=== PATIENT | male | born 1945 | race African-American/Black ===

== ENCOUNTER → 2016-08-15 | Outpatient (CLI) | payer MEDICAID, OTHER ==
[~2016-08-15] MED LIST: BARIUM SULFATE 40% (APPLE) 148 GM PWD. PO ONE
--- NOTE | 2016-08-15 14:39 | RAD ---
Video dysphasia study, 08/15/2016: History: Dysphagia, probable aspiration The swallowing mechanism was examined fluoroscopically in the lateral projection while the patient ingested a variety of food materials mixed with barium. 1.7 minutes of fluoroscopy time was utilized. One fluoroscopic video loop was recorded by a member of the speech Department. When ingesting the honey thickened material there was minimal deep laryngeal penetration. This material eventually traveled into the trachea. When the patient ingested the thicker pureed material, the laryngeal penetration resolved. No further aspiration was observed. IMPRESSION: Minimal deep laryngeal penetration and aspiration of the honey thickened material which abated when the pureed material was utilized.
== END | disposition home or self-care (01) ==
LOC: RAD 13:04
PROVIDERS: ATTEND Family Medicine
DX: I69.959 Hemiplegia and hemiparesis following unspecified cerebrovascular disease affecting unspecified side (principal); I73.9 Peripheral vascular disease, unspecified; I10 Essential (primary) hypertension; K21.9 Gastro-esophageal reflux disease without esophagitis; I69.998 Other sequelae following unspecified cerebrovascular disease
CPT/HCPCS: 74230; 92611; G8996; G8997; G8998

== ENCOUNTER 2019-12-07 13:25 | Inpatient (IN) | payer MEDICARE, MEDICAID ==
[~2019-12-07] VITALS: Ht 180.3 cm; Wt 65.1 kg
[~2019-12-07 13:25] MED LIST changes: +ACET325T21 PO; +AMLO10TA4 PO; +ASPI-630 PO; -BARIUM SULFATE 40% (APPLE) 148 GM PWD. PO ONE; +CHOL10003 PO; +DOCU100C28 PO; +HYDR12.575 PO; +METO25TA4 PO; +SENN8.6T99 PO
[2019-12-07 14:03] LABS: BASO % 1 % (0-3); EOS % 0 % (0-3); HEMATOCRIT 46.7 % (39.0-53.0); HEMOGLOBIN 15.6 g/dL (13.0-17.5); LYMPH # 1.3 x10^3/uL (1.0-4.8); LYMPH % 21 % (24-48); MEAN CORPUSCULAR HEMOGLOBIN 30 pg (25-35); MEAN CORPUSCULAR HGB CONC 33 g/dL (31-37); MEAN CORPUSCULAR VOLUME 89 fL (79-100); MONO # 0.6 x10^3/uL (0.0-1.1); MONO % 10 % (0-9); NEUT # 4.3 x10^3/uL (1.8-7.7); NEUT % 69 % (31-73); PLATELET COUNT 156 x10^3/uL (140-400); RED BLOOD COUNT 5.22 x10^6/uL (4.30-5.70); RED CELL DISTRIBUTION WIDTH 12.9 % (11.5-14.5); WHITE BLOOD COUNT 6.3 x10^3/uL (4.0-11.0)
--- NOTE | 2019-12-07 14:23 | RAD ---
AP chest. HISTORY: Code stroke, slurred speech, facial droop AP views taken of the chest. Lungs are free of infiltrates. Heart is normal in size. There is no pleural effusion. IMPRESSION: 1. No acute chest disease. Electronically signed by: Armando Ceja MD (12/07/2019 2:20 PM) [id number]
--- NOTE | 2019-12-07 14:34 | RAD ---
CT HEAD WO CONTRAST History:Slurred speech, facial droop Comparison: None. Technique: Noncontrast CT imaging was performed of the head. Exposure: One or more of the following individualized dose reduction techniques were utilized for this examination: 1. Automated exposure control 2. Adjustment of the mA and/or kV according to patient size 3. Use of iterative reconstruction technique. Findings: There is motion degradation, more prominent near the vertex. No convincing acute hyperdense hemorrhage is identified. It is difficult to exclude left frontal region subdural hematoma near the vertex on the exam measuring 6 to 7 mm in thickness although findings could be accentuated by motion. There is moderate to severe lateral and moderate third ventriculomegaly although there is degree of supratentorial atrophy. There are old lacunar infarcts of the bilateral basal ganglia and watkins radiata. There is no midline shift. There is atherosclerotic calcification of the carotid siphons and intradural vertebral arteries. There is small focus of lower density of the right radha. Impression: 1. Exam is degraded by motion. Small left frontal region subdural hematoma near the vertex is difficult to exclude although findings could be accentuated by motion. If clinically needed, repeat exam with attention to this area could be beneficial. 2. There is third and lateral ventriculomegaly although there is supratentorial atrophy. 3. There are old lacunar infarcts. There is a small focus of low density of the right radha suggestive of lacunar infarct although of uncertain chronicity, could be subacute. Critical results were discussed with GABRIEL NEWELL at 12/07/2019 2:28 PM. Electronically signed by: Ta Sigala MD (12/07/2019 2:31 PM) [place] [id number]
[2019-12-07 15:52] LABS: CALCIUM 8.9 mg/dL (8.5-10.1); CREATININE 1.1 mg/dL (0.7-1.3); POTASSIUM 3.6 mmol/L (3.5-5.1)
[2019-12-07 16:03] LABS: ALBUMIN 3.2 g/dL (3.4-5.0); ALBUMIN/GLOBULIN RATIO 0.8 (1.0-1.7); TOTAL BILIRUBIN 0.7 mg/dL (0.2-1.0); TOTAL PROTEIN 7.4 g/dL (6.4-8.2)
[2019-12-07] MEDS ORDERED: IV NORMAL SALINE 1000ML BAG 1,000 ML IV ONE (16:30)
[2019-12-07] MEDS ORDERED: ACETAMINOPHEN 325 MG TABLET. PO PRN (17:45)
[2019-12-07] MEDS ORDERED: hydrALAZINE 20 MG/ML VIAL. IVP PRN (17:45)
--- NOTE | 2019-12-07 17:48 | PHYS DOC ---
Past Medical History Past Medical History: GERD, Hypertension, Stroke Additional Past Medical Histor: candidal stomatitis, dysphagia, muscle wea kness, lack of coordiantion Past Surgical History: No Surgical History Smoking Status: Unknown if ever smoked Alcohol Use: None Drug Use: None General Adult EDM: Chief Complaint: NEURO SYMPTOMS/DEFICITS HPI: HPI: Patient is a 74 year old male who presents with possible new onset facial droop. According to the nursing facility they last saw him normal yesterday. At baseline he is nonverbal and has some chronic deficits. They are stating that this facial droop is new. Patient is unable to provide any history. Review of Systems: Review of Systems: Unable to obtain due to altered mental status Heart Score: Risk Factors: Risk Factors: DM, Current or recent (<one month) smoker, HTN, HLP, family history of CAD, obesity. Risk Scores: Score 0 - 3: 2.5% MACE over next 6 weeks - Discharge Home Score 4 - 6: 20.3% MACE over next 6 weeks - Admit for Clinical Observation Score 7 - 10: 72.7% MACE over next 6 weeks - Early Invasive Strategies Current Medications: Current Medications Medications (Trade) Dose Ordered Sig/Aung Start Time Stop Time Status Last Admin Dose Admin Sodium Chloride 1,000 ml @ 1,000 mls/hr 1X ONCE 12/07/19 16:30 12/07/19 17:29 DC Allergies: Allergies: Allergies Coded Allergies Type Severity Reaction Last Updated Verified No Known Drug Allergies 01/06/14 No Physical Exam: PE: General: Awake, cachectic. Cooperative HEENT: Atraumatic, EOMI, PERRL, airway patent, moist oral mucosa Neck: Supple, trachea midline Respiratory: CTA bilaterally, normal effort, no wheezing/crackles CV: RRR, no murmur, cap refill <2 GI: Soft, nondistended, nontender, no masses MSK: No obvious deformities Skin: Warm, dry, intact Neuro: Nonverbal, moves all extremities, right-sided facial droop Current Patient Data: Labs: Laboratory Tests Test 12/07/19 13:45 12/07/19 15:00 White Blood Count 6.3 x10^3/uL (4.0-11.0) Red Blood Count 5.22 x10^6/uL (4.30-5.70) Hemoglobin 15.6 g/dL (13.0-17.5) Hematocrit 46.7 % (39.0-53.0) Mean Corpuscular Volume 89 fL (79-100) Mean Corpuscular Hemoglobin 30 pg (25-35) Mean Corpuscular Hemoglobin Concent 33 g/dL (31-37) Red Cell Distribution Width 12.9 % (11.5-14.5) Platelet Count 156 x10^3/uL (140-400) Neutrophils (%) (Auto) 69 % (31-73) Lymphocytes (%) (Auto) 21 % (24-48) L Monocytes (%) (Auto) 10 % (0-9) H Eosinophils (%) (Auto) 0 % (0-3) Basophils (%) (Auto) 1 % (0-3) Neutrophils # (Auto) 4.3 x10^3/uL (1.8-7.7) Lymphocytes # (Auto) 1.3 x10^3/uL (1.0-4.8) Monocytes # (Auto) 0.6 x10^3/uL (0.0-1.1) Eosinophils # (Auto) 0.0 x10^3/uL (0.0-0.7) Basophils # (Auto) 0.0 x10^3/uL (0.0-0.2) Sodium Level 150 mmol/L (136-145) H Potassium Level 3.6 mmol/L (3.5-5.1) Chloride Level 110 mmol/L (98-107) H Carbon Dioxide Level 30 mmol/L (21-32) Anion Gap 10 (6-14) Blood Urea Nitrogen 36 mg/dL (8-26) H Creatinine 1.1 mg/dL (0.7-1.3) Estimated GFR (Cockcroft-Gault) 79.0 BUN/Creatinine Ratio 33 (6-20) H Glucose Level 108 mg/dL (70-99) H Calcium Level 8.9 mg/dL (8.5-10.1) Total Bilirubin 0.7 mg/dL (0.2-1.0) Aspartate Amino Transferase (AST) 120 U/L (15-37) H Alanine Aminotransferase (ALT) 81 U/L (16-63) H Alkaline Phosphatase 69 U/L (46-116) Troponin I Quantitative 0.019 ng/mL (0.000-0.055) Total Protein 7.4 g/dL (6.4-8.2) Albumin 3.2 g/dL (3.4-5.0) L Albumin/Globulin Ratio 0.8 (1.0-1.7) L Laboratory Tests 12/07/19 13:45 Laboratory Tests 12/07/19 15:00 Vital Signs: Vital Signs Date Time Temp Pulse Resp B/P (MAP) Pulse Ox O2 Delivery O2 Flow Rate FiO2 12/07/19 13:25 99.1 112 20 156/83 (107) 94 Room Air 99.1 EKG: EKG: [] Radiology/Procedures: Radiology/Procedures: [] Course & Med Decision Making: Course & Med Decision Making Pertinent Labs and Imaging studies reviewed. (See chart for details) Patient 74-year-old male who presents to the emergency room with possible new onset facial droop. Last known well time was last night and patient is outside of the window for any intervention at this time. Patient also has known coronavirus. CT head shows possible chronic versus subacute radha infarct. It is otherwise normal. Work-up shows dehydration and hypernatremia. Patient was given fluids here in the emergency room. I discussed the case with Dr. Bee who will admit the patient for further care. Dragon Disclaimer: Dragon Disclaimer: This electronic medical record was generated, in whole or in part, using a voice recognition dictation system. Departure Departure Impression: Primary Impression: Facial droop Additional Impressions: Dehydration Hypernatremia Disposition: ADMITTED INPATIENT Condition: STABLE Referrals: NON,STAFF (PCP) Justicifation of Admission Dx: Justifications for Admission: Justification of Admission Dx: Yes Stroke - Ischemic: Stroke-Ischemic GABRIEL NEWELL MD Dec 07, 2019 17:48
--- NOTE | 2019-12-07 18:15 | PDOC ---
Provider Note Provider Note H&P dictated #[id number] Justicifation of Admission Dx: Justifications for Admission: Justification of Admission Dx: Yes Stroke - Ischemic: Stroke-Ischemic JEROME SHELL MD Dec 07, 2019 18:15
--- NOTE | 2019-12-07 18:50 | HP ---
ADMIT DATE: 12/07/2019 HISTORY OF PRESENT ILLNESS: This 74 years old alf resident was noted by the staff today to have an increasing facial droop. The patient previously has had a cerebrovascular accident with right-sided weakness. The patient also vomited today and has been coughing. He had a COVID-19 test done this morning. Because of his worsening facial droop, the patient was sent to the Emergency Room. A chest x-ray was negative. The patient has been coughing. A CT scan of head showed old lacunar infarcts and possible subacute infarct in the right side radha. Because of the dysphagia, worsening facial droop, coughing, and with the possibility of acute cerebrovascular accident, the patient is admitted for further evaluation and management. REVIEW OF SYSTEMS: The patient's speech is not clear and he is unable to communicate. The patient's speech is worse than what it used to be previously. Unable to understand him and unable to do systems review. PAST MEDICAL HISTORY: The patient has a history of cerebrovascular accident, hypertension, gastroesophageal reflux disease, dysphagia, weakness and oral candidiasis. SOCIAL HISTORY: No history of smoking, alcoholism or drug abuse. The patient is a resident of [facility]. PAST SURGICAL HISTORY: The patient was last admitted here in 04/2018 and he had obstructed right inguinal hernia and he underwent right inguinal hernia repair with mesh placement. FAMILY HISTORY: Not available. MEDICATIONS: Reviewed and reconciled. ALLERGIES: None known any. PHYSICAL EXAMINATION: VITAL SIGNS: Temperature 99.1, pulse 112 per minute, respirations 20 per minute, blood pressure 156/83 mmHg. GENERAL: The patient is an elderly male who is alert, appears to be chronically and acutely ill and in mild distress. He is unable to communicate and has been coughing while trying to talk. EYES: Pupils reacting to light. Eyes appear to be red bilaterally, more on the left side. Throat, unable to examine as the patient is coughing and is also wearing a mask. NECK: JVP normal. No thyromegaly. Trachea midline. LUNGS: Decreased breath sounds bilaterally. CARDIOVASCULAR: S1, S2 regular. ABDOMEN: Soft, nontender, no guarding, no rigidity. Bowel sounds present. EXTREMITIES: No edema. The patient has right-sided weakness with contracture. He also has a facial droop on the right side, but I am not sure if it is more pronounced than before as I have not seen him for some time. CENTRAL NERVOUS SYSTEM: His speech is not clear and I am unable to communicate. His speech is worse than it used to be previously. LABORATORY FINDINGS: WBC count 6.3, hemoglobin 15.6, polys 69. Sodium 150, potassium 3.6, BUN 36, creatinine 1.1, AST 120, ALT 81, albumin 3.2. Troponin 0.019. IMPRESSION: 1. Acute cerebrovascular accident. 2. Hypertension, not controlled. 3. Dysphagia. 4. Gastroesophageal reflux disease. 5. Dehydration. 6. Elevated LFTs. 7. Electrolyte imbalance with hypernatremia and hypokalemia. 8. Physical deconditioning. 9. Low-grade fever. 10. Possible aspiration bronchitis. PLAN: 1. Start IV D5 half normal saline with KCl 20 mEq in each liter to run at 125 mL per hour. 2. Dysphagia. We will keep the patient n.p.o. and have speech therapy evaluation. 3. Acute cerebrovascular accident. Consult Dr. Hood. Consult PT, OT, speech therapy, and also consult Dr. Jade for rehabilitation evaluation and management. 4. Dehydration. Start IV fluids as noted earlier. 5. Hypertension. Start IV hydralazine. We will renew the alf medications, but will not start them yet as the patient is n.p.o. 6. Elevated LFTs. Recheck labs in a.m. Prognosis of this patient is extremely poor. Await COVID-19 test report that was done by the facility, i.e., the alf where he lives. For details, please refer to the orders. JEROME SHELL MD DR: MALATHI/merlin JOB#: [id number] / [id number]
[2019-12-07] MEDS ORDERED: ENOXAPARIN 30 MG/0.3 ML SYRINGE. SQ SCH (19:00)
[2019-12-07 19:49] VITALS: BP 155/75
--- NOTE | 2019-12-07 20:06 | NUR ---
Pt arrived to unit at 1820. NIH was done with next shift RYAN Hurd. Score was 21. Routine consult was called to Dr Hood.
[2019-12-07] MEDS: DOCUSATE SODIUM 100 MG CAPSULE. PO SCH (21:00)
[2019-12-07] MEDS: METOPROLOL TARTRATE 5 MG/5 ML VIAL. IVP PRN ×2 (21:00→22:57)
[2019-12-07] MEDS: SENNOSIDES 8.6 MG TABLET PO SCH (21:00)
--- NOTE | 2019-12-07 21:13 | EKG ---
[facility] [address] [place] [address] Test Date: 2019-12-07 Test Time: 21:06:47 Pat Name: ELAN FOFANA Department: Room: Gender: M Road Machine Operator: PARISA : 1945 Requested By: GABRIEL NEWELL Order Number: [id number] Reading MD: Measurements Intervals [place] Rate: 114 P: KS: QRS: 51 QRSD: 84 T: -21 QT: 328 QTc: 456 Interpretive Statements IRREGULAR RHYTHM, NO P-WAVE FOUND T ABNORMALITY IN INFERIOR LEADS ABNORMAL ECG RI6.02 Compared to ECG 04/30/2018 20:53:47 T-wave abnormality now present Sinus rhythm no longer present Left-axis deviation no longer present
[2019-12-07] MEDS: POTASSIUM CL 20MEQ D5-0.45NACL 1,000 ML IV SCH (22:22)
[2019-12-07] MEDS ORDERED: METOPROLOL TARTRATE 5 MG/5 ML VIAL. IVP PRN (22:45)
[2019-12-07] MEDS: ACETAMINOPHEN 650 MG SUPP.RECT. PR PRN (22:49)
[2019-12-07 23:20] VITALS: BP 139/66
[2019-12-08 03:10] VITALS: BP 114/69
[2019-12-08 03:48] LABS: BASO % 1 % (0-3); EOS % 0 % (0-3); HEMATOCRIT 43.8 % (39.0-53.0); HEMOGLOBIN 14.5 g/dL (13.0-17.5); LYMPH # 1.7 x10^3/uL (1.0-4.8); LYMPH % 26 % (24-48); MEAN CORPUSCULAR HEMOGLOBIN 30 pg (25-35); MEAN CORPUSCULAR HGB CONC 33 g/dL (31-37); MEAN CORPUSCULAR VOLUME 89 fL (79-100); MONO # 0.6 x10^3/uL (0.0-1.1); MONO % 9 % (0-9); NEUT # 4.1 x10^3/uL (1.8-7.7); NEUT % 65 % (31-73); PLATELET COUNT 156 x10^3/uL (140-400); RED BLOOD COUNT 4.92 x10^6/uL (4.30-5.70); WHITE BLOOD COUNT 6.4 x10^3/uL (4.0-11.0)
[2019-12-08 04:00] LABS: ALBUMIN 2.6 g/dL (3.4-5.0); ALBUMIN/GLOBULIN RATIO 0.6 (1.0-1.7); CALCIUM 8.5 mg/dL (8.5-10.1); CREATININE 1.1 mg/dL (0.7-1.3); MAGNESIUM 2.7 mg/dL (1.8-2.4); POTASSIUM 3.5 mmol/L (3.5-5.1); TOTAL BILIRUBIN 0.6 mg/dL (0.2-1.0); TOTAL PROTEIN 7.1 g/dL (6.4-8.2)
[2019-12-08 04:05] LABS: CHOLESTEROL/HDL RATIO 1.9
--- NOTE | 2019-12-08 04:52 | EKG ---
[facility] [address] [place] [address] Test Date: 2019-12-07 Test Time: 13:35:07 Pat Name: ELAN FOFANA Department: Room: 4 Gender: M Workers Compensation Coordinator: : 1945 Requested By: JEROME SHELL Order Number: [id number] Reading MD: Measurements Intervals [place] Rate: 85 P: 31 VA: 132 QRS: 28 QRSD: 72 T: 45 QT: 366 QTc: 436 Interpretive Statements SINUS RHYTHM LOW LIMB LEAD VOLTAGE NO SPECIFIC ECG ABNORMALITIES RI6.02 No previous ECG available for comparison
[2019-12-08 07:00] VITALS: BP 105/74
--- NOTE | 2019-12-08 08:55 | PDOC2 ---
NEUROLOGY CONSULT Date of Service DOS: DATE: 12/08/19 TIME: 08:53 Reason for Consult Reason for Consult: stroke symptoms Referring Physician Referring Physician: Dr. 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 Yesterday at [facility], he was found to have increased weakness, vomiting, coughing, and also turns out to be COVID positive. He is unable to provide any further history. Past Medical History Cardiovascular: HTN, Other (peripheral vascular disease) CENTRAL NERVOUS SYSTEM: CVA (right paresis, aphasia) GI: GERD Infectious disease: Other (COVID) Family History Family History: No pertinent hx Social History Social History detention resident, no known alcohol or tobacco Current Medications Current Medications Current Medications Sodium Chloride 1,000 ml @ 1,000 mls/hr 1X ONCE IV ; Start 12/07/19 at 16:30; Stop 12/07/19 at 17:29; Status DC Acetaminophen (Tylenol) 650 mg PRN Q4HRS PRN PO FEVER > 100.3'F; Start 12/07/19 at 17:45 Amlodipine Besylate (Norvasc) 10 mg DAILY PO ; Start 12/08/19 at 09:00 Aspirin (Aspirin Chewable) 81 mg DAILY PO ; Start 12/08/19 at 09:00 Vitamin D (Vitamin D3) 1,000 unit WEEKLY PO ; Start 12/14/19 at 09:00 Docusate Sodium (Colace) 100 mg BID PO ; Start 12/07/19 at 21:00 Sennosides (Senna) 8.6 mg BID PO ; Start 12/07/19 at 21:00 Hydralazine HCl (Apresoline Inj) 10 mg PRN Q4HRS PRN IVP FOR SBP > 160; Start 12/07/19 at 17:45 Potassium Chloride/Dextrose/ Sod Cl 1,000 ml @ 100 mls/hr Q10H IV Last administered on 12/07/19at 22:22; Start 12/07/19 at 18:30 Enoxaparin Sodium (Lovenox 30mg Syringe) 30 mg Q24H SQ Last administered on 12/07/19at 22:21; Start 12/07/19 at 19:00 Pantoprazole Sodium (PROTONIX VIAL for IV PUSH) 40 mg DAILY07 IVP ; Start 03/18 at 07:00 Metoprolol Tartrate (Lopressor Vial) 5 mg QIDPRN PRN IVP TACHYCARDIA Last administered on 12/07/19at 22:57; Start 12/07/19 at 19:45 Acetaminophen (Tylenol Supp) 650 mg PRN Q6HRS PRN DE MILD PAIN / TEMP > 100.3'F Last administered on 12/07/19at 22:49; Start 12/07/19 at 21:30 Metoprolol Tartrate (Lopressor Vial) 10 mg PRN Q6HRS PRN IVP HYPERTENSION; Start 12/07/19 at 22:45 Active Scripts Active Reported Vitamin D3 (Cholecalciferol (Vitamin D3)) 1,000 Unit Tablet 1 Tab PO WEEKLY Senokot (Sennosides) 8.6 Mg Tablet 1 Tab PO BID Norvasc (Amlodipine Besylate) 10 Mg Tablet 10 Mg PO DAILY Metoprolol Tartrate 25 Mg Tablet 0.5 Tab PO BID Hydrochlorothiazide Capsule (Hydrochlorothiazide) 12.5 Mg Capsule 12.5 Mg PO DAILY Docusate Sodium 100 Mg Capsule 1 Cap PO BID Aspirin 81 Mg Tab.chew 1 Tab PO DAILY Acetaminophen 325 Mg Tablet 650 Mg PO PRN Q4HRS PRN Allergies Allergies: Coded Allergies: No Known Drug Allergies (Unverified , 01/06/14) ROS Review of System Not reliably obtained Physical Exam Physical Examination General: Well-developed, well-nourished black male in no acute distress HEENT: Normocephalic andatraumatic. Temporal arteriespulsatile and nontender. Neck: Supple without bruit, no meningismus Musculoskeletal: Stability:see neurologic. Gait exam:see neurologic. Tone:see neurologic.Strength:see neurologic. Neurological: Mental Status: oorientation, memory, attention span/concentration, language, fund of knowledge: no intelligible speech output, does not follow commands. Cran ial Nerves:Pupils equal and reactive to light, extraocular movements areintact, visual armando are full to threat. Facial sensation is normal. There is a right central facial weakness. All other cranial related problems are negative except as mentioned before.Reflexes:2+ and symmetric with flexor plantar responses. Motor: 2/5 spastic right hemiparesis. Coordination and gait: not cooperative. Sensory: not cooperative. Vitals VITALS Vital Signs Date Time Temp Pulse Resp B/P (MAP) Pulse Ox O2 Delivery O2 Flow Rate FiO2 12/08/19 07:00 97.8 118 18 105/74 (84) 94 Nasal Cannula 2.0 97.8 Labs Labs Laboratory Tests Test 12/07/19 13:45 12/07/19 15:00 12/08/19 03:40 White Blood Count 6.3 x10^3/uL (4.0-11.0) 6.4 x10^3/uL (4.0-11.0) Red Blood Count 5.22 x10^6/uL (4.30-5.70) 4.92 x10^6/uL (4.30-5.70) Hemoglobin 15.6 g/dL (13.0-17.5) 14.5 g/dL (13.0-17.5) Hematocrit 46.7 % (39.0-53.0) 43.8 % (39.0-53.0) Mean Corpuscular Volume 89 fL (79-100) 89 fL (79-100) Mean Corpuscular Hemoglobin 30 pg (25-35) 30 pg (25-35) Mean Corpuscular Hemoglobin Concent 33 g/dL (31-37) 33 g/dL (31-37) Red Cell Distribution Width 12.9 % (11.5-14.5) 13.0 % (11.5-14.5) Platelet Count 156 x10^3/uL (140-400) 156 x10^3/uL (140-400) Neutrophils (%) (Auto) 69 % (31-73) 65 % (31-73) Lymphocytes (%) (Auto) 21 % (24-48) 26 % (24-48) Monocytes (%) (Auto) 10 % (0-9) 9 % (0-9) Eosinophils (%) (Auto) 0 % (0-3) 0 % (0-3) Basophils (%) (Auto) 1 % (0-3) 1 % (0-3) Neutrophils # (Auto) 4.3 x10^3/uL (1.8-7.7) 4.1 x10^3/uL (1.8-7.7) Lymphocytes # (Auto) 1.3 x10^3/uL (1.0-4.8) 1.7 x10^3/uL (1.0-4.8) Monocytes # (Auto) 0.6 x10^3/uL (0.0-1.1) 0.6 x10^3/uL (0.0-1.1) Eosinophils # (Auto) 0.0 x10^3/uL (0.0-0.7) 0.0 x10^3/uL (0.0-0.7) Basophils # (Auto) 0.0 x10^3/uL (0.0-0.2) 0.0 x10^3/uL (0.0-0.2) Sodium Level 150 mmol/L (136-145) 150 mmol/L (136-145) Potassium Level 3.6 mmol/L (3.5-5.1) 3.5 mmol/L (3.5-5.1) Chloride Level 110 mmol/L (98-107) 113 mmol/L (98-107) Carbon Dioxide Level 30 mmol/L (21-32) 29 mmol/L (21-32) Anion Gap 10 (6-14) 8 (6-14) Blood Urea Nitrogen 36 mg/dL (8-26) 40 mg/dL (8-26) Creatinine 1.1 mg/dL (0.7-1.3) 1.1 mg/dL (0.7-1.3) Estimated GFR (Cockcroft-Gault) 79.0 79.0 BUN/Creatinine Ratio 33 (6-20) 36 (6-20) Glucose Level 108 mg/dL (70-99) 132 mg/dL (70-99) Calcium Level 8.9 mg/dL (8.5-10.1) 8.5 mg/dL (8.5-10.1) Total Bilirubin 0.7 mg/dL (0.2-1.0) 0.6 mg/dL (0.2-1.0) Aspartate Amino Transf (AST/SGOT) 120 U/L (15-37) 94 U/L (15-37) Alanine Aminotransferase (ALT/SGPT) 81 U/L (16-63) 73 U/L (16-63) Alkaline Phosphatase 69 U/L (46-116) 59 U/L (46-116) Troponin I Quantitative 0.019 ng/mL (0.000-0.055) Total Protein 7.4 g/dL (6.4-8.2) 7.1 g/dL (6.4-8.2) Albumin 3.2 g/dL (3.4-5.0) 2.6 g/dL (3.4-5.0) Albumin/Globulin Ratio 0.8 (1.0-1.7) 0.6 (1.0-1.7) Magnesium Level 2.7 mg/dL (1.8-2.4) Triglycerides Level 49 mg/dL (0-150) Cholesterol Level 126 mg/dL (0-200) LDL Cholesterol, Calculated 50 mg/dL (0-100) VLDL Cholesterol, Calculated 10 mg/dL (0-40) Non-HDL Cholesterol Calculated 60 mg/dL (0-129) HDL Cholesterol 66 mg/dL (40-60) Cholesterol/HDL Ratio 1.9 Laboratory Tests Test 12/07/19 13:45 12/07/19 15:00 12/08/19 03:40 White Blood Count 6.3 x10^3/uL (4.0-11.0) 6.4 x10^3/uL (4.0-11.0) Red Blood Count 5.22 x10^6/uL (4.30-5.70) 4.92 x10^6/uL (4.30-5.70) Hemoglobin 15.6 g/dL (13.0-17.5) 14.5 g/dL (13.0-17.5) Hematocrit 46.7 % (39.0-53.0) 43.8 % (39.0-53.0) Mean Corpuscular Volume 89 fL (79-100) 89 fL (79-100) Mean Corpuscular Hemoglobin 30 pg (25-35) 30 pg (25-35) Mean Corpuscular Hemoglobin Concent 33 g/dL (31-37) 33 g/dL (31-37) Red Cell Distribution Width 12.9 % (11.5-14.5) 13.0 % (11.5-14.5) Platelet Count 156 x10^3/uL (140-400) 156 x10^3/uL (140-400) Neutrophils (%) (Auto) 69 % (31-73) 65 % (31-73) Lymphocytes (%) (Auto) 21 % (24-48) 26 % (24-48) Monocytes (%) (Auto) 10 % (0-9) 9 % (0-9) Eosinophils (%) (Auto) 0 % (0-3) 0 % (0-3) Basophils (%) (Auto) 1 % (0-3) 1 % (0-3) Neutrophils # (Auto) 4.3 x10^3/uL (1.8-7.7) 4.1 x10^3/uL (1.8-7.7) Lymphocytes # (Auto) 1.3 x10^3/uL (1.0-4.8) 1.7 x10^3/uL (1.0-4.8) Monocytes # (Auto) 0.6 x10^3/uL (0.0-1.1) 0.6 x10^3/uL (0.0-1.1) Eosinophils # (Auto) 0.0 x10^3/uL (0.0-0.7) 0.0 x10^3/uL (0.0-0.7) Basophils # (Auto) 0.0 x10^3/uL (0.0-0.2) 0.0 x10^3/uL (0.0-0.2) Sodium Level 150 mmol/L (136-145) 150 mmol/L (136-145) Potassium Level 3.6 mmol/L (3.5-5.1) 3.5 mmol/L (3.5-5.1) Chloride Level 110 mmol/L (98-107) 113 mmol/L (98-107) Carbon Dioxide Level 30 mmol/L (21-32) 29 mmol/L (21-32) Anion Gap 10 (6-14) 8 (6-14) Blood Urea Nitrogen 36 mg/dL (8-26) 40 mg/dL (8-26) Creatinine 1.1 mg/dL (0.7-1.3) 1.1 mg/dL (0.7-1.3) Estimated GFR (Cockcroft-Gault) 79.0 79.0 BUN/Creatinine Ratio 33 (6-20) 36 (6-20) Glucose Level 108 mg/dL (70-99) 132 mg/dL (70-99) Calcium Level 8.9 mg/dL (8.5-10.1) 8.5 mg/dL (8.5-10.1) Total Bilirubin 0.7 mg/dL (0.2-1.0) 0.6 mg/dL (0.2-1.0) Aspartate Amino Transf (AST/SGOT) 120 U/L (15-37) 94 U/L (15-37) Alanine Aminotransferase (ALT/SGPT) 81 U/L (16-63) 73 U/L (16-63) Alkaline Phosphatase 69 U/L (46-116) 59 U/L (46-116) Troponin I Quantitative 0.019 ng/mL (0.000-0.055) Total Protein 7.4 g/dL (6.4-8.2) 7.1 g/dL (6.4-8.2) Albumin 3.2 g/dL (3.4-5.0) 2.6 g/dL (3.4-5.0) Albumin/Globulin Ratio 0.8 (1.0-1.7) 0.6 (1.0-1.7) Magnesium Level 2.7 mg/dL (1.8-2.4) Triglycerides Level 49 mg/dL (0-150) Cholesterol Level 126 mg/dL (0-200) LDL Cholesterol, Calculated 50 mg/dL (0-100) VLDL Cholesterol, Calculated 10 mg/dL (0-40) Non-HDL Cholesterol Calculated 60 mg/dL (0-129) HDL Cholesterol 66 mg/dL (40-60) Cholesterol/HDL Ratio 1.[address] HEAD WO CONTRAST History:Slurred speech, facial droop Comparison: None. Technique: Noncontrast CT imaging was performed of the head. Exposure: One or more of the following individualized dose reduction techniques were utilized for this examination: 1. Automated exposure control 2. Adjustment of the mA and/or kV according to patient size 3. Use of iterative reconstruction technique. Findings: There is motion degradation, more prominent near the vertex. No convincing acute hyperdense hemorrhage is identified. It is difficult to exclude left frontal region subdural hematoma near the vertex on the exam measuring 6 to 7 mm in thickness although findings could be accentuated by motion. There is moderate to severe lateral and moderate third ventriculomegaly although there is degree of supratentorial atrophy. There are old lacunar infarcts of the bilateral basal ganglia and watkins radiata. There is no midline shift. There is atherosclerotic calcification of the carotid siphons and intradural vertebral arteries. There is small focus of lower density of the right radha. Impression: 1. Exam is degraded by motion. Small left frontal region subdural hematoma near the vertex is difficult to exclude although findings could be accentuated by motion. If clinically needed, repeat exam with attention to this area could be beneficial. 2. There is third and lateral ventriculomegaly although there is supratentorial atrophy. 3. There are old lacunar infarcts. There is a small focus of low density of the right radha suggestive of lacunar infarct although of uncertain chronicity, could be subacute. Assessment/Plan Assessment/Plan Impression: Prior left hemispheric stroke leaving him in a markedly debilitated state Possible subdural hematoma COVID positive Possible aspiration pneumonia, respiratory failure, atrial fibrillation new onset, dehydration (hypernatremia), hypokalemia, hypertension, dysphagia, elevated LFTs, low-grade fever Recommendations: Brain MRI Rehabilitation modalities including swallowing evaluation Further recommendations depending on MRI results, but I'm hesitant to order carotid studies or echocardiogram as he is not a candidate for endarterectomy or anticoagulation. Treat medical problems. Thank you for letting me help with the patient's care. AAYUSH MOREJON MD Dec 08, 2019 08:55
[2019-12-08] MEDS: DOCUSATE SODIUM 100 MG CAPSULE. PO SCH ×2 (08:58→21:00)
[2019-12-08] MEDS: ASPIRIN CHEWABLE 81 MG TABLET. PO SCH (08:58)
[2019-12-08] MEDS: SENNOSIDES 8.6 MG TABLET PO SCH ×2 (09:00→21:00)
[2019-12-08] MEDS ORDERED: amLODIPine BESYLATE 10 MG TABLET PO SCH (09:00)
[2019-12-08] MEDS: PANTOPRAZOLE IV PUSH 40 MG VIAL. IVP SCH (09:05)
[2019-12-08] MEDS: POTASSIUM CL 20MEQ D5-0.45NACL 1,000 ML IV SCH ×2 (09:06→19:14)
[2019-12-08] MEDS ORDERED: DIGOXIN IV 500 MCG/2 ML AMPUL. IV ONE (10:15)
[2019-12-08 10:37] VITALS: BP 120/84
--- NOTE | 2019-12-08 10:44 | PDOC ---
IM PROGRESS NOTES- Subjective Subjective The patient speech is not clear and unable to do systems review. Patient is much less responsive this morning than yesterday. he had atrial fibrillation with fast ventricular rate and was started on IV Lopressor. He has been given digoxin IV by the wad compressor operator adjuster Objective Vitals/I&O Vital Signs Date Time Temp Pulse Resp B/P (MAP) Pulse Ox O2 Delivery O2 Flow Rate FiO2 12/08/19 10:37 97.9 115 17 120/84 (96) 94 Nasal Cannula 2.0 97.9 I & O 12/07/19 12/07/19 12/08/19 15:00 23:00 07:00 Intake Total 0 ml 0 ml Balance 0 ml 0 ml Physical Exam Physical Exam GENERAL: The patient is an elderly male who is poorly responsive, appears to be chronically and acutely ill and in mild distress. He is unable to communicate and has been coughing while trying to talk. Throat, unable to examine as the patient is coughing NECK: JVP normal. No thyromegaly. Trachea midline. LUNGS: Decreased breath sounds bilaterally. CARDIOVASCULAR: S1, S2 regular. ABDOMEN: Soft, nontender, no guarding, no rigidity. Bowel sounds present. EXTREMITIES: No edema. The patient has right-sided weakness with contracture. He also has a facial droop on the right side, but I am not sure if it is more pronounced than before as I have not seen him for some time. CENTRAL NERVOUS SYSTEM: Patient is poorly responsive, speech is much weaker. He has weakness of both upper extremities. He has some weakness of the lower extremities but able to move them. Unable to assess properly as patient is unable to cooperate Labs Laboratory Tests Test 12/07/19 13:45 12/07/19 15:00 12/08/19 03:40 White Blood Count 6.3 x10^3/uL (4.0-11.0) 6.4 x10^3/uL (4.0-11.0) Red Blood Count 5.22 x10^6/uL (4.30-5.70) 4.92 x10^6/uL (4.30-5.70) Hemoglobin 15.6 g/dL (13.0-17.5) 14.5 g/dL (13.0-17.5) Hematocrit 46.7 % (39.0-53.0) 43.8 % (39.0-53.0) Mean Corpuscular Volume 89 fL (79-100) 89 fL (79-100) Mean Corpuscular Hemoglobin 30 pg (25-35) 30 pg (25-35) Mean Corpuscular Hemoglobin Concent 33 g/dL (31-37) 33 g/dL (31-37) Red Cell Distribution Width 12.9 % (11.5-14.5) 13.0 % (11.5-14.5) Platelet Count 156 x10^3/uL (140-400) 156 x10^3/uL (140-400) Neutrophils (%) (Auto) 69 % (31-73) 65 % (31-73) Lymphocytes (%) (Auto) 21 % (24-48) L 26 % (24-48) Monocytes (%) (Auto) 10 % (0-9) H 9 % (0-9) Eosinophils (%) (Auto) 0 % (0-3) 0 % (0-3) Basophils (%) (Auto) 1 % (0-3) 1 % (0-3) Neutrophils # (Auto) 4.3 x10^3/uL (1.8-7.7) 4.1 x10^3/uL (1.8-7.7) Lymphocytes # (Auto) 1.3 x10^3/uL (1.0-4.8) 1.7 x10^3/uL (1.0-4.8) Monocytes # (Auto) 0.6 x10^3/uL (0.0-1.1) 0.6 x10^3/uL (0.0-1.1) Eosinophils # (Auto) 0.0 x10^3/uL (0.0-0.7) 0.0 x10^3/uL (0.0-0.7) Basophils # (Auto) 0.0 x10^3/uL (0.0-0.2) 0.0 x10^3/uL (0.0-0.2) Sodium Level 150 mmol/L (136-145) H 150 mmol/L (136-145) H Potassium Level 3.6 mmol/L (3.5-5.1) 3.5 mmol/L (3.5-5.1) Chloride Level 110 mmol/L (98-107) H 113 mmol/L (98-107) H Carbon Dioxide Level 30 mmol/L (21-32) 29 mmol/L (21-32) Anion Gap 10 (6-14) 8 (6-14) Blood Urea Nitrogen 36 mg/dL (8-26) H 40 mg/dL (8-26) H Creatinine 1.1 mg/dL (0.7-1.3) 1.1 mg/dL (0.7-1.3) Estimated GFR (Cockcroft-Gault) 79.0 79.0 BUN/Creatinine Ratio 33 (6-20) H 36 (6-20) H Glucose Level 108 mg/dL (70-99) H 132 mg/dL (70-99) H Calcium Level 8.9 mg/dL (8.5-10.1) 8.5 mg/dL (8.5-10.1) Total Bilirubin 0.7 mg/dL (0.2-1.0) 0.6 mg/dL (0.2-1.0) Aspartate Amino Transferase (AST) 120 U/L (15-37) H 94 U/L (15-37) H Alanine Aminotransferase (ALT) 81 U/L (16-63) H 73 U/L (16-63) H Alkaline Phosphatase 69 U/L (46-116) 59 U/L (46-116) Troponin I Quantitative 0.019 ng/mL (0.000-0.055) Total Protein 7.4 g/dL (6.4-8.2) 7.1 g/dL (6.4-8.2) Albumin 3.2 g/dL (3.4-5.0) L 2.6 g/dL (3.4-5.0) L Albumin/Globulin Ratio 0.8 (1.0-1.7) L 0.6 (1.0-1.7) L Magnesium Level 2.7 mg/dL (1.8-2.4) H Triglycerides Level 49 mg/dL (0-150) Cholesterol Level 126 mg/dL (0-200) LDL Cholesterol, Calculated 50 mg/dL (0-100) VLDL Cholesterol, Calculated 10 mg/dL (0-40) Non-HDL Cholesterol Calculated 60 mg/dL (0-129) HDL Cholesterol 66 mg/dL (40-60) H Cholesterol/HDL Ratio 1.9 Laboratory Tests 12/07/19 13:45 12/08/19 03:40 Laboratory Tests 12/07/19 15:00 12/08/19 03:40 Meds Current Medications Medications (Trade) Dose Ordered Sig/Aung Route PRN Reason Start Time Stop Time Status Last Admin Dose Admin Potassium Chloride/Dextrose/ Sod Cl 1,000 ml @ 100 mls/hr Q10H IV 12/07/19 18:30 12/08/19 09:06 Enoxaparin Sodium (Lovenox 30mg Syringe) 30 mg Q24H SQ 12/07/19 19:00 12/07/19 22:21 Pantoprazole Sodium (PROTONIX VIAL for IV PUSH) 40 mg DAILY07 IVP 12/08/19 07:00 12/08/19 09:05 Metoprolol Tartrate (Lopressor Vial) 5 mg QIDPRN PRN IVP TACHYCARDIA 12/07/19 19:45 12/07/19 22:57 Acetaminophen (Tylenol Supp) 650 mg PRN Q6HRS PRN [place] MILD PAIN / TEMP > 100.3'F 12/07/19 21:30 12/07/19 22:49 Digoxin (Lanoxin) 500 mcg 1X ONCE IV 12/08/19 10:15 12/08/19 10:16 DC 12/08/19 10:28 Assessment Assessment 1. Acute cerebrovascular accident. 2. Hypertension, not controlled. 3. Dysphagia. 4. Gastroesophageal reflux disease. 5. Dehydration. 6. Elevated LFTs. 7. Electrolyte imbalance with hypernatremia and hypokalemia. 8. Physical deconditioning. 9. Low-grade fever. 10. Possible aspiration bronchitis. 11. Acute respiratory failure. Possible COVID-19 infection PLAN: 1. Start IV D5 half normal saline with KCl 20 mEq in each liter to run at 125 mL per hour. 2. Dysphagia. We will keep the patient n.p.o. and have speech therapy evaluation. 3. Acute cerebrovascular accident. Consult Dr. Hood. Consult PT, OT, speech therapy, and also consult Dr. Jade for rehabilitation evaluation and management. MRI has been ordered . 4. Dehydration. Start IV fluids. No improvement noted so will increase IV fluids. 5. Hypertension. Start IV hydralazine. We will renew the [facility] medications, but will not start them yet as the patient is n.p.o. 6. Elevated LFTs. Recheck labs in a.m. Prognosis of this patient is extremely poor. Await COVID-19 test report that was done by [facility] called the [facility] and apparently the patient was on the COVID-19 unit but not sure about the report. Order CO VID-19 PCR test here. 7. Atrial fibrillation-IV digoxin was given by the wad compressor operator adjuster. Started on IV Lopressor on schedule 8. Acute respiratory failure-continue oxygen by nasal cannula. Pulmonary consult. Prognosis of this patient is very poor For details, please refer to the orders. Plan Plan For more details regarding further plans, please refer to the orders. Justicifation of Admission Dx: Justifications for Admission: Justification of Admission Dx: Yes Stroke - Ischemic: Stroke-Ischemic JEROME SHELL MD Dec 08, 2019 10:43
--- NOTE | 2019-12-08 10:54 | PDOC2 ---
CARDIAC CONSULT DATE OF CONSULT Date of Consult DATE: 12/08/19 TIME: 10:35 REASON FOR CONSULT Reason for Consult: Tachy REFERRING PHYSICIAN Referring Physician: Rohit SOURCE Source: Chart review HISTORY OF PRESENT ILLNESS HISTORY OF PRESENT ILLNESS This is a 74 yo male admitted for noted facial drrop. I could not get any details from as he is mainly nonverbal. The facial droop is new and currently he is no distress. I discussed with RN and it does not appear that he is in any discomfort overnight. No SOA but has been noted with tachycardia and I reviewed and it was AFIB. Per chart review no noted hx of AFIB. Presently he is on RVR. PAST MEDICAL HISTORY Cardiovascular: HTN CENTRAL NERVOUS SYSTEM: CVA GI: GERD, Other (dysphagia) Renal/: UTI, Urinary Incontinence PAST SURGICAL HISTORY Past Surgical History: Hernia Repair (right inguinal) FAMILY HISTORY Family History: Family History Unknown SOCIAL HISTORY Smoke: No ALCOHOL: none Drugs: None Lives: Detention CURRENT MEDICATIONS CURRENT MEDICATIONS Current Medications Medications (Trade) Dose Ordered Sig/Aung Route PRN Reason Start Time Stop Time Status Last Admin Dose Admin Potassium Chloride/Dextrose/ Sod Cl 1,000 ml @ 100 mls/hr Q10H IV 12/07/19 18:30 12/08/19 09:06 Enoxaparin Sodium (Lovenox 30mg Syringe) 30 mg Q24H SQ 12/07/19 19:00 12/07/19 22:21 Pantoprazole Sodium (PROTONIX VIAL for IV PUSH) 40 mg DAILY07 IVP 12/08/19 07:00 12/08/19 09:05 Metoprolol Tartrate (Lopressor Vial) 5 mg QIDPRN PRN IVP TACHYCARDIA 12/07/19 19:45 12/07/19 22:57 Acetaminophen (Tylenol Supp) 650 mg PRN Q6HRS PRN [place] MILD PAIN / TEMP > 100.3'F 12/07/19 21:30 12/07/19 22:49 Digoxin (Lanoxin) 500 mcg 1X ONCE IV 12/08/19 10:15 12/08/19 10:16 DC 12/08/19 10:28 ALLERGIES ALLERGIES: Coded Allergies: No Known Drug Allergies (Unverified , 01/06/14) ROS Review of System unreliable, aphasic PHYSICAL EXAM General: Alert, No acute distress HEENT: Atraumatic Lungs: Other (CXR with no acute changes; RA at 95%) Heart: Other (AFIB RVR) Extremities: No cyanosis Skin: No breakdown Neuro: Other (aphasic) Psych/Mental Status: Other (aphasic) MUSCULOSKELETAL: Osteoarthritic changes both hands VITALS/I&O VITALS/I&O: Vital Signs Date Time Temp Pulse Resp B/P (MAP) Pulse Ox O2 Delivery O2 Flow Rate FiO2 12/08/19 10:28 150 12/08/19 07:00 97.8 18 105/74 (84) 94 Nasal Cannula 2.0 97.8 I & O 12/07/19 12/07/19 12/08/19 15:00 23:00 07:00 Intake Total 0 ml 0 ml Balance 0 ml 0 ml LABS Lab: Laboratory Tests Test 12/07/19 13:45 12/07/19 15:00 12/08/19 03:40 White Blood Count 6.3 x10^3/uL (4.0-11.0) 6.4 x10^3/uL (4.0-11.0) Red Blood Count 5.22 x10^6/uL (4.30-5.70) 4.92 x10^6/uL (4.30-5.70) Hemoglobin 15.6 g/dL (13.0-17.5) 14.5 g/dL (13.0-17.5) Hematocrit 46.7 % (39.0-53.0) 43.8 % (39.0-53.0) Mean Corpuscular Volume 89 fL (79-100) 89 fL (79-100) Mean Corpuscular Hemoglobin 30 pg (25-35) 30 pg (25-35) Mean Corpuscular Hemoglobin Concent 33 g/dL (31-37) 33 g/dL (31-37) Red Cell Distribution Width 12.9 % (11.5-14.5) 13.0 % (11.5-14.5) Platelet Count 156 x10^3/uL (140-400) 156 x10^3/uL (140-400) Neutrophils (%) (Auto) 69 % (31-73) 65 % (31-73) Lymphocytes (%) (Auto) 21 % (24-48) L 26 % (24-48) Monocytes (%) (Auto) 10 % (0-9) H 9 % (0-9) Eosinophils (%) (Auto) 0 % (0-3) 0 % (0-3) Basophils (%) (Auto) 1 % (0-3) 1 % (0-3) Neutrophils # (Auto) 4.3 x10^3/uL (1.8-7.7) 4.1 x10^3/uL (1.8-7.7) Lymphocytes # (Auto) 1.3 x10^3/uL (1.0-4.8) 1.7 x10^3/uL (1.0-4.8) Monocytes # (Auto) 0.6 x10^3/uL (0.0-1.1) 0.6 x10^3/uL (0.0-1.1) Eosinophils # (Auto) 0.0 x10^3/uL (0.0-0.7) 0.0 x10^3/uL (0.0-0.7) Basophils # (Auto) 0.0 x10^3/uL (0.0-0.2) 0.0 x10^3/uL (0.0-0.2) Sodium Level 150 mmol/L (136-145) H 150 mmol/L (136-145) H Potassium Level 3.6 mmol/L (3.5-5.1) 3.5 mmol/L (3.5-5.1) Chloride Level 110 mmol/L (98-107) H 113 mmol/L (98-107) H Carbon Dioxide Level 30 mmol/L (21-32) 29 mmol/L (21-32) Anion Gap 10 (6-14) 8 (6-14) Blood Urea Nitrogen 36 mg/dL (8-26) H 40 mg/dL (8-26) H Creatinine 1.1 mg/dL (0.7-1.3) 1.1 mg/dL (0.7-1.3) Estimated GFR (Cockcroft-Gault) 79.0 79.0 BUN/Creatinine Ratio 33 (6-20) H 36 (6-20) H Glucose Level 108 mg/dL (70-99) H 132 mg/dL (70-99) H Calcium Level 8.9 mg/dL (8.5-10.1) 8.5 mg/dL (8.5-10.1) Total Bilirubin 0.7 mg/dL (0.2-1.0) 0.6 mg/dL (0.2-1.0) Aspartate Amino Transferase (AST) 120 U/L (15-37) H 94 U/L (15-37) H Alanine Aminotransferase (ALT) 81 U/L (16-63) H 73 U/L (16-63) H Alkaline Phosphatase 69 U/L (46-116) 59 U/L (46-116) Troponin I Quantitative 0.019 ng/mL (0.000-0.055) Total Protein 7.4 g/dL (6.4-8.2) 7.1 g/dL (6.4-8.2) Albumin 3.2 g/dL (3.4-5.0) L 2.6 g/dL (3.4-5.0) L Albumin/Globulin Ratio 0.8 (1.0-1.7) L 0.6 (1.0-1.7) L Magnesium Level 2.7 mg/dL (1.8-2.4) H Triglycerides Level 49 mg/dL (0-150) Cholesterol Level 126 mg/dL (0-200) LDL Cholesterol, Calculated 50 mg/dL (0-100) VLDL Cholesterol, Calculated 10 mg/dL (0-40) Non-HDL Cholesterol Calculated 60 mg/dL (0-129) HDL Cholesterol 66 mg/dL (40-60) H Cholesterol/HDL Ratio 1.9 Laboratory Tests 12/07/19 13:45 12/08/19 03:40 Laboratory Tests 12/07/19 15:00 12/08/19 03:40 ASSESSMENT/PLAN ASSESSMENT/PLAN 1. Possible new CVA with subdural hematoma: per CT. Neurology consulted. Unclear if any recent fall 2. AFIB RVR: new finding. initial EKG in SR and no changes by comparison. 3. HTN: controlled 4. Past CVA/aphasia/dysphagia 5. COVID-19 with fever: POA, noted initially at [facility] 6. Mild hypernatremia: per PCP Recommendations 1. Dig IV x1. IF BP trend is adequate then will start on IV lopressor 2. Awaiting further neuro workup. Possibly a poor candidate for anticoagulation if truly has SDH. Will defer timing of this to neuro otherwise ASA. 3. Covid treatment per PCP. Supportive care per cardiac standpoint. No TTE at this time. 4. UA, INR and TSH [employer] Dec 08, 2019 10:54
[2019-12-08 11:11] LABS: PROTHROMBIN TIME PATIENT 14.2 SEC (11.7-14.0)
--- NOTE | 2019-12-08 12:32 | CONS ---
DATE OF CONSULTATION: PULMONARY CONSULTATION ATTENDING PHYSICIAN: Judy Bee MD REASON FOR CONSULTATION: Cough, possible pneumonia. HISTORY OF PRESENT ILLNESS: The patient is a 74-year-old male who is a long term resident. He was noted to have a facial droop. He had prior history of CVA and right-sided weakness. He also had some emesis and was starting to have cough. He is being tested for COVID-19. CT of the head showed lacunar infarct and possible subacute infarct on the right side in the pontine area. The patient had some dysphagia and coughing and aspiration was suspected. I have been asked to see him for further evaluation. Chest x-ray on admission did not reveal any acute infiltrate. PAST MEDICAL HISTORY: History of CVA, history of GE reflux disease, dysphagia, weakness, oral candidiasis, and hypertension. PAST SURGICAL HISTORY: Right inguinal hernia surgery. SOCIAL HISTORY: No history of tobacco or alcohol use. Lives at the [facility] in [place]. FAMILY HISTORY: Unable to obtain. ALLERGIES: None. MEDICATIONS: Reviewed as listed in the MRAD including Lovenox for DVT prophylaxis. REVIEW OF SYSTEMS: Unable to obtain from the patient, he is a poor historian. PHYSICAL EXAMINATION: GENERAL: He is in no obvious respiratory distress. VITAL SIGNS: Pulse ox 94% on 2 liters, afebrile with T-max of 100.6. HEENT: Sclerae nonicteric. NECK: Supple. LUNGS: With rhonchi anteriorly. CARDIOVASCULAR: With a regular rate. ABDOMEN: Soft. EXTREMITIES: With no pitting edema. LABORATORY DATA: Reviewed. White cell count 6.4, hemoglobin 14.5, platelets are 156. BUN 40, creatinine 1.1. Chloride 113. AST and ALT elevated. CT head had shown small left frontal subdural hematoma near the vertex. Could be motion artifact. Old lacunar infarct and a small focus of low density on the right radha suggesting of lacunar infarct. IMPRESSION: 1. Dyspnea with cough in a patient who has suspected acute or subacute stroke. Likely has risk factors for aspiration pneumonia. We will add empiric antibiotic and follow the clinical course. 2. Subacute new infarct and possible subdural hematoma versus motion artifact. We will follow Neurology recommendation. 3. No significant tobacco history. RECOMMENDATIONS: 1. Discussed with RN. At this time, I would add empiric antibiotic. 2. We will hold off on Lovenox due to possible suspected left frontal region subdural hematoma versus some motion artifact. 3. P.r.n. bronchodilators. 4. We will repeat chest x-ray in next few days. 5. Follow Neurology recommendations. 6. May need speech therapy. 7. Discussed with RN. We will follow along with you. JAMIE COLLAZO MD DR: GORDO/merlin JOB#: [id number] / [id number]
[2019-12-08] MEDS: METOPROLOL TARTRATE 5 MG/5 ML VIAL. IVP SCH ×2 (12:38→19:13)
[2019-12-08 15:00] VITALS: BP 142/101
--- NOTE | 2019-12-08 15:32 | NUR ---
SW following. Spoke with RN and reviewed chart. Pt from [facility], , (fax). FANTA phoned and faxed clinicals to [facility] to update and coordinate care. Pt on and is currently NPO. Pt tested positive for COVID on 12/05/2019 per [facility] at the facility. FANTA notified RN. Rehab screen has been ordered but FANTA asked for PT/OT orders to be considered as pt may have had a stroke and will need PT/OT per Dr. Bee. Cardiology and Pulmonology have been consulted. SW to follow. Addendum: 12/08/19 at 1540 by JENNY JEWELL SW consulted for high risk readmission. SW to follow for discharge planning. Discharge plan is return to [facility].
--- NOTE | 2019-12-08 15:37 | NUR ---
[facility] reported patient was Covid positive on 12/05/19
--- NOTE | 2019-12-08 17:02 | RAD ---
MRI Brain without contrast History:CVA Technique: Multiplanar, multisequential noncontrast MR imaging was performed of the brain. Comparison: CT head exam December 07, 2019 Findings: There is some motion degradation. There is no restricted diffusion suggestive of acute infarct. There is fairly severe supratentorial atrophy, ventriculomegaly fairly proportionate to sulcal spaces. There is no intra-axial mass effect, extra-axial fluid collection or hematoma, or midline shift. There is scattered [id number] T2 and FLAIR hyperintense signal of the supratentorial parenchyma bilaterally. There are old lacunar infarcts of the bilateral watkins radiata, left basal ganglia, and of the radha. There is preservation of the major arterial intracranial flow voids at the skull base. There is mild ethmoid air cell mucosal thickening greater anteriorly. Mastoid air cells are aerated. Cerebellar tonsils are normal in location. There is preserved marrow signal of the clivus. There is no abnormality of pineal gland or pituitary gland. Impression: 1. No acute infarct is identified. 2. 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 3. Scattered T2 and FLAIR hyperintense signal of the supratentorial parenchyma is nonspecific, more commonly due to chronic ischemic disease in a patient this age. There are also old lacunar infarcts as stated. Electronically signed by: Ta Sigala MD (12/08/2019 4:59 PM) [place] [id number]
[2019-12-08 19:00] VITALS: BP 137/67
--- NOTE | 2019-12-08 19:09 | NUR ---
Patient NPO. Oral medications held. PT noticed wound on right heal.
[2019-12-08 23:00] VITALS: BP 152/87
[2019-12-09] MEDS: METOPROLOL TARTRATE 5 MG/5 ML VIAL. IVP SCH ×5 (01:11→23:36)
[2019-12-09] MEDS: POTASSIUM CL 20MEQ D5-0.45NACL 1,000 ML IV SCH ×4 (01:13→23:26)
[2019-12-09 03:00] VITALS: BP 151/90
[2019-12-09 04:40] LABS: BASO % 0 % (0-3); EOS % 0 % (0-3); HEMATOCRIT 41.5 % (39.0-53.0); HEMOGLOBIN 13.6 g/dL (13.0-17.5); LYMPH # 1.2 x10^3/uL (1.0-4.8); LYMPH % 24 % (24-48); MEAN CORPUSCULAR HEMOGLOBIN 30 pg (25-35); MEAN CORPUSCULAR HGB CONC 33 g/dL (31-37); MEAN CORPUSCULAR VOLUME 91 fL (79-100); MONO # 0.4 x10^3/uL (0.0-1.1); MONO % 8 % (0-9); NEUT # 3.5 x10^3/uL (1.8-7.7); NEUT % 68 % (31-73); PLATELET COUNT 142 x10^3/uL (140-400); RED BLOOD COUNT 4.58 x10^6/uL (4.30-5.70); RED CELL DISTRIBUTION WIDTH 12.7 % (11.5-14.5); WHITE BLOOD COUNT 5.2 x10^3/uL (4.0-11.0)
[2019-12-09 05:30] LABS: ALBUMIN 2.5 g/dL (3.4-5.0); ALBUMIN/GLOBULIN RATIO 0.6 (1.0-1.7); CALCIUM 8.1 mg/dL (8.5-10.1); CREATININE 1.1 mg/dL (0.7-1.3); POTASSIUM 4.1 mmol/L (3.5-5.1); TOTAL BILIRUBIN 0.6 mg/dL (0.2-1.0); TOTAL PROTEIN 6.6 g/dL (6.4-8.2)
[2019-12-09] MEDS: PANTOPRAZOLE IV PUSH 40 MG VIAL. IVP SCH (06:13)
[2019-12-09 07:00] VITALS: BP 134/58
--- NOTE | 2019-12-09 08:42 | PDOC ---
PULMONARY PROGRESS NOTES DATE: 12/09/19 TIME: 08:42 Subjective does not follow commands on RA Vitals Vital Signs Date Time Temp Pulse Resp B/P (MAP) Pulse Ox O2 Delivery O2 Flow Rate FiO2 12/09/19 06:10 84 151/90 12/09/19 03:00 98.9 18 92 Nasal Cannula 2.0 98.9 General: No acute distress Lungs: Clear Cardiovascular: S1 Abdomen: Soft Extremities: No Edema Skin: Warm Labs Laboratory Tests Test 12/07/19 13:45 12/07/19 15:00 12/08/19 03:40 12/09/19 03:50 White Blood Count 6.3 x10^3/uL (4.0-11.0) 6.4 x10^3/uL (4.0-11.0) 5.2 x10^3/uL (4.0-11.0) Red Blood Count 5.22 x10^6/uL (4.30-5.70) 4.92 x10^6/uL (4.30-5.70) 4.58 x10^6/uL (4.30-5.70) Hemoglobin 15.6 g/dL (13.0-17.5) 14.5 g/dL (13.0-17.5) 13.6 g/dL (13.0-17.5) Hematocrit 46.7 % (39.0-53.0) 43.8 % (39.0-53.0) 41.5 % (39.0-53.0) Mean Corpuscular Volume 89 fL (79-100) 89 fL (79-100) 91 fL (79-100) Mean Corpuscular Hemoglobin 30 pg (25-35) 30 pg (25-35) 30 pg (25-35) Mean Corpuscular Hemoglobin Concent 33 g/dL (31-37) 33 g/dL (31-37) 33 g/dL (31-37) Red Cell Distribution Width 12.9 % (11.5-14.5) 13.0 % (11.5-14.5) 12.7 % (11.5-14.5) Platelet Count 156 x10^3/uL (140-400) 156 x10^3/uL (140-400) 142 x10^3/uL (140-400) Neutrophils (%) (Auto) 69 % (31-73) 65 % (31-73) 68 % (31-73) Lymphocytes (%) (Auto) 21 % (24-48) 26 % (24-48) 24 % (24-48) Monocytes (%) (Auto) 10 % (0-9) 9 % (0-9) 8 % (0-9) Eosinophils (%) (Auto) 0 % (0-3) 0 % (0-3) 0 % (0-3) Basophils (%) (Auto) 1 % (0-3) 1 % (0-3) 0 % (0-3) Neutrophils # (Auto) 4.3 x10^3/uL (1.8-7.7) 4.1 x10^3/uL (1.8-7.7) 3.5 x10^3/uL (1.8-7.7) Lymphocytes # (Auto) 1.3 x10^3/uL (1.0-4.8) 1.7 x10^3/uL (1.0-4.8) 1.2 x10^3/uL (1.0-4.8) Monocytes # (Auto) 0.6 x10^3/uL (0.0-1.1) 0.6 x10^3/uL (0.0-1.1) 0.4 x10^3/uL (0.0-1.1) Eosinophils # (Auto) 0.0 x10^3/uL (0.0-0.7) 0.0 x10^3/uL (0.0-0.7) 0.0 x10^3/uL (0.0-0.7) Basophils # (Auto) 0.0 x10^3/uL (0.0-0.2) 0.0 x10^3/uL (0.0-0.2) 0.0 x10^3/uL (0.0-0.2) Sodium Level 150 mmol/L (136-145) 150 mmol/L (136-145) 151 mmol/L (136-145) Potassium Level 3.6 mmol/L (3.5-5.1) 3.5 mmol/L (3.5-5.1) 4.1 mmol/L (3.5-5.1) Chloride Level 110 mmol/L (98-107) 113 mmol/L (98-107) 115 mmol/L (98-107) Carbon Dioxide Level 30 mmol/L (21-32) 29 mmol/L (21-32) 27 mmol/L (21-32) Anion Gap 10 (6-14) 8 (6-14) 9 (6-14) Blood Urea Nitrogen 36 mg/dL (8-26) 40 mg/dL (8-26) 27 mg/dL (8-26) Creatinine 1.1 mg/dL (0.7-1.3) 1.1 mg/dL (0.7-1.3) 1.1 mg/dL (0.7-1.3) Estimated GFR (Cockcroft-Gault) 79.0 79.0 79.0 BUN/Creatinine Ratio 33 (6-20) 36 (6-20) 25 (6-20) Glucose Level 108 mg/dL (70-99) 132 mg/dL (70-99) 120 mg/dL (70-99) Calcium Level 8.9 mg/dL (8.5-10.1) 8.5 mg/dL (8.5-10.1) 8.1 mg/dL (8.5-10.1) Total Bilirubin 0.7 mg/dL (0.2-1.0) 0.6 mg/dL (0.2-1.0) 0.6 mg/dL (0.2-1.0) Aspartate Amino Transf (AST/SGOT) 120 U/L (15-37) 94 U/L (15-37) 79 U/L (15-37) Alanine Aminotransferase (ALT/SGPT) 81 U/L (16-63) 73 U/L (16-63) 59 U/L (16-63) Alkaline Phosphatase 69 U/L (46-116) 59 U/L (46-116) 55 U/L (46-116) Troponin I Quantitative 0.019 ng/mL (0.000-0.055) Total Protein 7.4 g/dL (6.4-8.2) 7.1 g/dL (6.4-8.2) 6.6 g/dL (6.4-8.2) Albumin 3.2 g/dL (3.4-5.0) 2.6 g/dL (3.4-5.0) 2.5 g/dL (3.4-5.0) Albumin/Globulin Ratio 0.8 (1.0-1.7) 0.6 (1.0-1.7) 0.6 (1.0-1.7) Prothrombin Time 14.2 SEC (11.7-14.0) Prothromb Time International Ratio 1.1 (0.8-1.1) Magnesium Level 2.7 mg/dL (1.8-2.4) Triglycerides Level 49 mg/dL (0-150) Cholesterol Level 126 mg/dL (0-200) LDL Cholesterol, Calculated 50 mg/dL (0-100) VLDL Cholesterol, Calculated 10 mg/dL (0-40) Non-HDL Cholesterol Calculated 60 mg/dL (0-129) HDL Cholesterol 66 mg/dL (40-60) Cholesterol/HDL Ratio 1.9 Laboratory Tests Test 12/09/19 03:50 White Blood Count 5.2 x10^3/uL (4.0-11.0) Red Blood Count 4.58 x10^6/uL (4.30-5.70) Hemoglobin 13.6 g/dL (13.0-17.5) Hematocrit 41.5 % (39.0-53.0) Mean Corpuscular Volume 91 fL (79-100) Mean Corpuscular Hemoglobin 30 pg (25-35) Mean Corpuscular Hemoglobin Concent 33 g/dL (31-37) Red Cell Distribution Width 12.7 % (11.5-14.5) Platelet Count 142 x10^3/uL (140-400) Neutrophils (%) (Auto) 68 % (31-73) Lymphocytes (%) (Auto) 24 % (24-48) Monocytes (%) (Auto) 8 % (0-9) Eosinophils (%) (Auto) 0 % (0-3) Basophils (%) (Auto) 0 % (0-3) Neutrophils # (Auto) 3.5 x10^3/uL (1.8-7.7) Lymphocytes # (Auto) 1.2 x10^3/uL (1.0-4.8) Monocytes # (Auto) 0.4 x10^3/uL (0.0-1.1) Eosinophils # (Auto) 0.0 x10^3/uL (0.0-0.7) Basophils # (Auto) 0.0 x10^3/uL (0.0-0.2) Sodium Level 151 mmol/L (136-145) Potassium Level 4.1 mmol/L (3.5-5.1) Chloride Level 115 mmol/L (98-107) Carbon Dioxide Level 27 mmol/L (21-32) Anion Gap 9 (6-14) Blood Urea Nitrogen 27 mg/dL (8-26) Creatinine 1.1 mg/dL (0.7-1.3) Estimated GFR (Cockcroft-Gault) 79.0 BUN/Creatinine Ratio 25 (6-20) Glucose Level 120 mg/dL (70-99) Calcium Level 8.1 mg/dL (8.5-10.1) Total Bilirubin 0.6 mg/dL (0.2-1.0) Aspartate Amino Transf (AST/SGOT) 79 U/L (15-37) Alanine Aminotransferase (ALT/SGPT) 59 U/L (16-63) Alkaline Phosphatase 55 U/L (46-116) Total Protein 6.6 g/dL (6.4-8.2) Albumin 2.5 g/dL (3.4-5.0) Albumin/Globulin Ratio 0.6 (1.0-1.7) Medications Active Scripts Medications Dose Route/Sig Max Daily Dose Days Date Category Vitamin D3 (Cholecalciferol (Vitamin D3)) 1,000 Unit Tablet 1 Tab PO WEEKLY 05/01/18 Reported Senokot (Sennosides) 8.6 Mg Tablet 1 Tab PO BID 05/01/18 Reported Norvasc (Amlodipine Besylate) 10 Mg Tablet 10 Mg PO DAILY 05/01/18 Reported Metoprolol Tartrate 25 Mg Tablet 0.5 Tab PO BID 05/01/18 Reported Hydrochlorothiazide Capsule (Hydrochlorothiazide) 12.5 Mg Capsule 12.5 Mg PO DAILY 05/01/18 Reported Docusate Sodium 100 Mg Capsule 1 Cap PO BID 05/01/18 Reported Aspirin 81 Mg Tab.chew 1 Tab PO DAILY 05/01/18 Reported Acetaminophen 325 Mg Tablet 650 Mg PO PRN Q4HRS PRN 05/01/18 Reported Comments CXR IMPRESSION: 1. No acute chest disease. Impression . IMPRESSION: 1. Dyspnea with cough in a patient who has suspected acute or subacute stroke. Likely has risk factors for aspiration pneumonia. ON empiric antibiotic and follow the clinical course. 2. Subacute new infarct and possible subdural hematoma versus motion artifact. 3. 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 We will follow Neurology recommendation. 3. No significant tobacco history. Plan . RECOMMENDATIONS: Discussed with RN. At this time, continue empiric antibiotic. P.r.n. bronchodilators. We will repeat chest x-ray in next few days. Follow Neurology recommendations-- MRI negative for any acute process, demonstrated old lacunar infract May need speech therapy. COVID-19 positive. on RA, no soa can go back to [place] Discussed with RN. JMAIE COLLAZO MD Dec 09, 2019 08:42
[2019-12-09] MEDS: SENNOSIDES 8.6 MG TABLET PO SCH ×2 (09:00→21:00)
[2019-12-09] MEDS: ASPIRIN CHEWABLE 81 MG TABLET. PO SCH (09:00)
[2019-12-09] MEDS: DOCUSATE SODIUM 100 MG CAPSULE. PO SCH ×2 (09:00→21:00)
--- NOTE | 2019-12-09 10:23 | PDOC ---
IM PROGRESS NOTES- Subjective Subjective The patient speech is not clear and unable to do systems review. Patient is much less responsive this morning than yesterday. Objective Vitals/I&O Vital Signs Date Time Temp Pulse Resp B/P (MAP) Pulse Ox O2 Delivery O2 Flow Rate FiO2 12/09/19 07:00 99.3 92 20 134/58 (83) 92 Nasal Cannula 2.0 99.3 I & O 12/08/19 12/08/19 12/09/19 15:00 23:00 07:00 Intake Total 0 ml 938 ml Balance 0 ml 938 ml Physical Exam Physical Exam GENERAL: The patient is an elderly male who is poorly responsive, appears to be chronically and acutely ill and in mild distress. He is unable to communicate and has been coughing while trying to talk. Throat, unable to examine as the patient is coughing NECK: JVP normal. No thyromegaly. Trachea midline. LUNGS: Decreased breath sounds bilaterally. CARDIOVASCULAR: S1, S2 regular. ABDOMEN: Soft, nontender, no guarding, no rigidity. Bowel sounds present. EXTREMITIES: No edema. The patient has right-sided weakness with contracture. He also has a facial droop on the right side, but I am not sure if it is more pronounced than before as I have not seen him for some time. CENTRAL NERVOUS SYSTEM: Patient is poorly responsive, speech is much weaker. He has weakness of both upper extremities. He has some weakness of the lower extremities but able to move them. Unable to assess properly as patient is unable to cooperate Labs Laboratory Tests Test 12/09/19 03:50 White Blood Count 5.2 x10^3/uL (4.0-11.0) Red Blood Count 4.58 x10^6/uL (4.30-5.70) Hemoglobin 13.6 g/dL (13.0-17.5) Hematocrit 41.5 % (39.0-53.0) Mean Corpuscular Volume 91 fL (79-100) Mean Corpuscular Hemoglobin 30 pg (25-35) Mean Corpuscular Hemoglobin Concent 33 g/dL (31-37) Red Cell Distribution Width 12.7 % (11.5-14.5) Platelet Count 142 x10^3/uL (140-400) Neutrophils (%) (Auto) 68 % (31-73) Lymphocytes (%) (Auto) 24 % (24-48) Monocytes (%) (Auto) 8 % (0-9) Eosinophils (%) (Auto) 0 % (0-3) Basophils (%) (Auto) 0 % (0-3) Neutrophils # (Auto) 3.5 x10^3/uL (1.8-7.7) Lymphocytes # (Auto) 1.2 x10^3/uL (1.0-4.8) Monocytes # (Auto) 0.4 x10^3/uL (0.0-1.1) Eosinophils # (Auto) 0.0 x10^3/uL (0.0-0.7) Basophils # (Auto) 0.0 x10^3/uL (0.0-0.2) Sodium Level 151 mmol/L (136-145) H Potassium Level 4.1 mmol/L (3.5-5.1) Chloride Level 115 mmol/L (98-107) H Carbon Dioxide Level 27 mmol/L (21-32) Anion Gap 9 (6-14) Blood Urea Nitrogen 27 mg/dL (8-26) H Creatinine 1.1 mg/dL (0.7-1.3) Estimated GFR (Cockcroft-Gault) 79.0 BUN/Creatinine Ratio 25 (6-20) H Glucose Level 120 mg/dL (70-99) H Calcium Level 8.1 mg/dL (8.5-10.1) L Total Bilirubin 0.6 mg/dL (0.2-1.0) Aspartate Amino Transferase (AST) 79 U/L (15-37) H Alanine Aminotransferase (ALT) 59 U/L (16-63) Alkaline Phosphatase 55 U/L (46-116) Total Protein 6.6 g/dL (6.4-8.2) Albumin 2.5 g/dL (3.4-5.0) L Albumin/Globulin Ratio 0.6 (1.0-1.7) L Laboratory Tests 12/09/19 03:50 Laboratory Tests 12/09/19 03:50 Meds Current Medications Medications (Trade) Dose Ordered Sig/Aung Route PRN Reason Start Time Stop Time Status Last Admin Dose Admin Metoprolol Tartrate (Lopressor Vial) 5 mg Q6HRS IVP 12/08/19 12:00 12/09/19 06:10 Assessment Assessment 1. Acute cerebrovascular accident. 2. Hypertension, not controlled. 3. Dysphagia. 4. Gastroesophageal reflux disease. 5. Dehydration. 6. Elevated LFTs. 7. Electrolyte imbalance with hypernatremia and hypokalemia. 8. Physical deconditioning. 9. Low-grade fever. 10. Possible aspiration bronchitis. 11. Acute respiratory failure. Possible COVID-19 infection PLAN: 1. Start IV D5 half normal saline with KCl 20 mEq in each liter to run at 125 mL per hour. 2. Dysphagia. We will keep the patient n.p.o. and have speech therapy evaluation. 3. Acute cerebrovascular accident. Consult Dr. Hood. Consult PT, OT, speech therapy, and also consult Dr. Jade for rehabilitation evaluation and management. MRI has been ordered . MRI Impression: 1. No acute infarct is identified. 2. 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 3. Scattered T2 and FLAIR hyperintense signal of the supratentorial parenchyma is nonspecific, more commonly due to chronic ischemic disease in a patient this age. There are also old lacunar infarcts as stated. 4. Dehydration. Start IV fluids. No improvement noted so will increase IV fluids.Hypernatremia persistent. Consult .D/w . Consider Clinimix. 5. Hypertension. Start IV hydralazine. We will renew the custodial medications, but will not start them yet as the patient is n.p.o. 6. Elevated LFTs. Recheck labs in a.m. Prognosis of this patient is extremely poor. Await COVID-19 test report that was done by the facility, i.e., the custodial where he lives. The staff called the custodial and apparently the patient was on the COVID-19 unit but not sure about the report. Order COVID-19 PCR test here. Not done yesterday. Staff will call [place] again. Reorder if not done.D/w staff. 7. Atrial fibrillation-IV digoxin was given by the service establishment attendant. Started on IV Lopressor on schedule 8. Acute respiratory failure-continue oxygen by nasal cannula. Pulmonary consult.Cough ? aspiration. start Zosyn. consult ID. Prognosis of this patient is very poor For details, please refer to the orders. Plan Plan For more details regarding further plans, please refer to the orders. Justicifation of Admission Dx: Justifications for Admission: Justification of Admission Dx: Yes Stroke - Ischemic: Stroke-Ischemic Nutrition Consultation Dietary Evaluation: Recommendations by RD: Dietary education by RD, PPN/TPN Comments: REC PPN until pt is able to complete PLAYGROUND EQUIPMENT ERECTOR eval REC diet per PLAYGROUND EQUIPMENT ERECTOR w/ supplements when able Expected Outcomes/Goals: diet advancement vs nutrition support Interpretation of weight loss: >10% in 6 months Malnutrition Findings: Food and Nutrition Intake (Sev: <50% est energy req 5days Weight Status: Underweight JEROME SHELL MD Dec 09, 2019 10:23
[2019-12-09] MEDS ORDERED: PIP/TAZO PER PHARMACY MC PRN (10:30)
[2019-12-09] MEDS: PIPERACILLIN/TAZOBACTAM 3.375 GM in IV NORMAL SALINE 50ML 50 ML IV SCH ×3 (12:04→23:25)
--- NOTE | 2019-12-09 12:11 | PDOC ---
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 No acute stroke Possible subdural hematoma on CT, not present on MRI COVID positive Possible aspiration pneumonia, respiratory failure, atrial fibrillation new onset, dehydration (hypernatremia), hypokalemia, hypertension, dysphagia, elevated LFTs, low-grade fever Plan No additional neurological tests needed Rehabilitation modalities including swallowing evaluation Treat medical problems. Subjective None Objective Vital Signs Date Time Temp Pulse Resp B/P (MAP) Pulse Ox O2 Delivery O2 Flow Rate FiO2 12/09/19 07:00 99.3 92 20 134/58 (83) 92 Nasal Cannula 2.0 99.3 Intake and Output 12/09/19 07:00 Intake Total 938 ml Balance 938 ml Intake Oral 0 ml IV Total 938 ml # Voids 7 # Bowel Movements 2 PHYSICAL EXAM Alert. Expressive and receptive aphasia PERRL. EOMI. CN: right central facial weakness, no field cut Muscle tone: increased on right Muscle strength: 2/5 right hemiparesis DTR: 2+ Plantar reflex: flexor Gait: not examined in bed. Sensory exam: no abnormal findings. No cerebellar signs elicited. Review of Relevant I have reviewed the following items gerard (where applicable) has been applied. Labs Laboratory Tests Test 12/07/19 13:45 12/07/19 15:00 12/08/19 03:40 12/09/19 03:50 White Blood Count 6.3 x10^3/uL (4.0-11.0) 6.4 x10^3/uL (4.0-11.0) 5.2 x10^3/uL (4.0-11.0) Red Blood Count 5.22 x10^6/uL (4.30-5.70) 4.92 x10^6/uL (4.30-5.70) 4.58 x10^6/uL (4.30-5.70) Hemoglobin 15.6 g/dL (13.0-17.5) 14.5 g/dL (13.0-17.5) 13.6 g/dL (13.0-17.5) Hematocrit 46.7 % (39.0-53.0) 43.8 % (39.0-53.0) 41.5 % (39.0-53.0) Mean Corpuscular Volume 89 fL (79-100) 89 fL (79-100) 91 fL (79-100) Mean Corpuscular Hemoglobin 30 pg (25-35) 30 pg (25-35) 30 pg (25-35) Mean Corpuscular Hemoglobin Concent 33 g/dL (31-37) 33 g/dL (31-37) 33 g/dL (31-37) Red Cell Distribution Width 12.9 % (11.5-14.5) 13.0 % (11.5-14.5) 12.7 % (11.5-14.5) Platelet Count 156 x10^3/uL (140-400) 156 x10^3/uL (140-400) 142 x10^3/uL (140-400) Neutrophils (%) (Auto) 69 % (31-73) 65 % (31-73) 68 % (31-73) Lymphocytes (%) (Auto) 21 % (24-48) 26 % (24-48) 24 % (24-48) Monocytes (%) (Auto) 10 % (0-9) 9 % (0-9) 8 % (0-9) Eosinophils (%) (Auto) 0 % (0-3) 0 % (0-3) 0 % (0-3) Basophils (%) (Auto) 1 % (0-3) 1 % (0-3) 0 % (0-3) Neutrophils # (Auto) 4.3 x10^3/uL (1.8-7.7) 4.1 x10^3/uL (1.8-7.7) 3.5 x10^3/uL (1.8-7.7) Lymphocytes # (Auto) 1.3 x10^3/uL (1.0-4.8) 1.7 x10^3/uL (1.0-4.8) 1.2 x10^3/uL (1.0-4.8) Monocytes # (Auto) 0.6 x10^3/uL (0.0-1.1) 0.6 x10^3/uL (0.0-1.1) 0.4 x10^3/uL (0.0-1.1) Eosinophils # (Auto) 0.0 x10^3/uL (0.0-0.7) 0.0 x10^3/uL (0.0-0.7) 0.0 x10^3/uL (0.0-0.7) Basophils # (Auto) 0.0 x10^3/uL (0.0-0.2) 0.0 x10^3/uL (0.0-0.2) 0.0 x10^3/uL (0.0-0.2) Sodium Level 150 mmol/L (136-145) 150 mmol/L (136-145) 151 mmol/L (136-145) Potassium Level 3.6 mmol/L (3.5-5.1) 3.5 mmol/L (3.5-5.1) 4.1 mmol/L (3.5-5.1) Chloride Level 110 mmol/L (98-107) 113 mmol/L (98-107) 115 mmol/L (98-107) Carbon Dioxide Level 30 mmol/L (21-32) 29 mmol/L (21-32) 27 mmol/L (21-32) Anion Gap 10 (6-14) 8 (6-14) 9 (6-14) Blood Urea Nitrogen 36 mg/dL (8-26) 40 mg/dL (8-26) 27 mg/dL (8-26) Creatinine 1.1 mg/dL (0.7-1.3) 1.1 mg/dL (0.7-1.3) 1.1 mg/dL (0.7-1.3) Estimated GFR (Cockcroft-Gault) 79.0 79.0 79.0 BUN/Creatinine Ratio 33 (6-20) 36 (6-20) 25 (6-20) Glucose Level 108 mg/dL (70-99) 132 mg/dL (70-99) 120 mg/dL (70-99) Calcium Level 8.9 mg/dL (8.5-10.1) 8.5 mg/dL (8.5-10.1) 8.1 mg/dL (8.5-10.1) Total Bilirubin 0.7 mg/dL (0.2-1.0) 0.6 mg/dL (0.2-1.0) 0.6 mg/dL (0.2-1.0) Aspartate Amino Transf (AST/SGOT) 120 U/L (15-37) 94 U/L (15-37) 79 U/L (15-37) Alanine Aminotransferase (ALT/SGPT) 81 U/L (16-63) 73 U/L (16-63) 59 U/L (16-63) Alkaline Phosphatase 69 U/L (46-116) 59 U/L (46-116) 55 U/L (46-116) Troponin I Quantitative 0.019 ng/mL (0.000-0.055) Total Protein 7.4 g/dL (6.4-8.2) 7.1 g/dL (6.4-8.2) 6.6 g/dL (6.4-8.2) Albumin 3.2 g/dL (3.4-5.0) 2.6 g/dL (3.4-5.0) 2.5 g/dL (3.4-5.0) Albumin/Globulin Ratio 0.8 (1.0-1.7) 0.6 (1.0-1.7) 0.6 (1.0-1.7) Prothrombin Time 14.2 SEC (11.7-14.0) Prothromb Time International Ratio 1.1 (0.8-1.1) Magnesium Level 2.7 mg/dL (1.8-2.4) Triglycerides Level 49 mg/dL (0-150) Cholesterol Level 126 mg/dL (0-200) LDL Cholesterol, Calculated 50 mg/dL (0-100) VLDL Cholesterol, Calculated 10 mg/dL (0-40) Non-HDL Cholesterol Calculated 60 mg/dL (0-129) HDL Cholesterol 66 mg/dL (40-60) Cholesterol/HDL Ratio 1.9 Laboratory Tests Test 12/09/19 03:50 White Blood Count 5.2 x10^3/uL (4.0-11.0) Red Blood Count 4.58 x10^6/uL (4.30-5.70) Hemoglobin 13.6 g/dL (13.0-17.5) Hematocrit 41.5 % (39.0-53.0) Mean Corpuscular Volume 91 fL (79-100) Mean Corpuscular Hemoglobin 30 pg (25-35) Mean Corpuscular Hemoglobin Concent 33 g/dL (31-37) Red Cell Distribution Width 12.7 % (11.5-14.5) Platelet Count 142 x10^3/uL (140-400) Neutrophils (%) (Auto) 68 % (31-73) Lymphocytes (%) (Auto) 24 % (24-48) Monocytes (%) (Auto) 8 % (0-9) Eosinophils (%) (Auto) 0 % (0-3) Basophils (%) (Auto) 0 % (0-3) Neutrophils # (Auto) 3.5 x10^3/uL (1.8-7.7) Lymphocytes # (Auto) 1.2 x10^3/uL (1.0-4.8) Monocytes # (Auto) 0.4 x10^3/uL (0.0-1.1) Eosinophils # (Auto) 0.0 x10^3/uL (0.0-0.7) Basophils # (Auto) 0.0 x10^3/uL (0.0-0.2) Sodium Level 151 mmol/L (136-145) Potassium Level 4.1 mmol/L (3.5-5.1) Chloride Level 115 mmol/L (98-107) Carbon Dioxide Level 27 mmol/L (21-32) Anion Gap 9 (6-14) Blood Urea Nitrogen 27 mg/dL (8-26) Creatinine 1.1 mg/dL (0.7-1.3) Estimated GFR (Cockcroft-Gault) 79.0 BUN/Creatinine Ratio 25 (6-20) Glucose Level 120 mg/dL (70-99) Calcium Level 8.1 mg/dL (8.5-10.1) Total Bilirubin 0.6 mg/dL (0.2-1.0) Aspartate Amino Transf (AST/SGOT) 79 U/L (15-37) Alanine Aminotransferase (ALT/SGPT) 59 U/L (16-63) Alkaline Phosphatase 55 U/L (46-116) Total Protein 6.6 g/dL (6.4-8.2) Albumin 2.5 g/dL (3.4-5.0) Albumin/Globulin Ratio 0.6 (1.0-1.7) Medications Current Medications Sodium Chloride 1,000 ml @ 1,000 mls/hr 1X ONCE IV ; Start 12/07/19 at 16:30; Stop 12/07/19 at 17:29; Status DC Acetaminophen (Tylenol) 650 mg PRN Q4HRS PRN PO FEVER > 100.3'F; Start 12/07/19 at 17:45 Amlodipine Besylate (Norvasc) 10 mg DAILY PO ; Start 12/08/19 at 09:00; Stop 12/08/19 at 10:59; Status DC Aspirin (Aspirin Chewable) 81 mg DAILY PO ; Start 12/08/19 at 09:00 Vitamin D (Vitamin D3) 1,000 unit WEEKLY PO ; Start 12/14/19 at 09:00 Docusate Sodium (Colace) 100 mg BID PO ; Start 12/07/19 at 21:00 Sennosides (Senna) 8.6 mg BID PO ; Start 12/07/19 at 21:00 Hydralazine HCl (Apresoline Inj) 10 mg PRN Q4HRS PRN IVP FOR SBP > 160; Start 12/07/19 at 17:45 Potassium Chloride/Dextrose/ Sod Cl 1,000 ml @ 150 mls/hr Q6H40M IV Last administered on 12/09/19at 12:04; Start 12/07/19 at 18:30 Enoxaparin Sodium (Lovenox 30mg Syringe) 30 mg Q24H SQ Last administered on 12/07/19at 22:21; Start 12/07/19 at 19:00; Stop 12/08/19 at 12:12; Status DC Pantoprazole Sodium (PROTONIX VIAL for IV PUSH) 40 mg DAILY07 IVP Last administered on 12/09/19at 06:13; Start 12/08/19 at 07:00 Metoprolol Tartrate (Lopressor Vial) 5 mg QIDPRN PRN IVP TACHYCARDIA Last administered on 12/07/19at 22:57; Start 12/07/19 at 19:45; Stop 12/08/19 at 11:00; Status DC Acetaminophen (Tylenol Supp) 650 mg PRN Q6HRS PRN NV MILD PAIN / TEMP > 100.3'F Last administered on 8/10/20at 22:49; Start 12/07/19 at 21:30 Metoprolol Tartrate (Lopressor Vial) 10 mg PRN Q6HRS PRN IVP HYPERTENSION; Start 12/07/19 at 22:45; Stop 12/08/19 at 11:00; Status DC Digoxin (Lanoxin) 500 mcg 1X ONCE IV Last administered on 12/08/19at 10:28; Start 12/08/19 at 10:15; Stop 12/08/19 at 10:16; Status DC Metoprolol Tartrate (Lopressor Vial) 5 mg Q6HRS IVP Last administered on 12/09/19at 06:10; Start 12/08/19 at 12:00 Piperacillin Sod/ Tazobactam Sod (Zosyn Per Pharmacy) 1 each PRN DAILY PRN [facility] SEE COMMENTS; Start 12/09/19 at 10:30 Piperacillin Sod/ Tazobactam Sod 3.375 gm/Sodium Chloride 50 ml @ 100 mls/hr Q6HRS IV Last administered on 12/09/19at 12:04; Start 12/09/19 at 12:00 Active Scripts Active Reported Vitamin D3 (Cholecalciferol (Vitamin D3)) 1,000 Unit Tablet 1 Tab PO WEEKLY Senokot (Sennosides) 8.6 Mg Tablet 1 Tab PO BID Norvasc (Amlodipine Besylate) 10 Mg Tablet 10 Mg PO DAILY Metoprolol Tartrate 25 Mg Tablet 0.5 Tab PO BID Hydrochlorothiazide Capsule (Hydrochlorothiazide) 12.5 Mg Capsule 12.5 Mg PO DAILY Docusate Sodium 100 Mg Capsule 1 Cap PO BID Aspirin 81 Mg Tab.chew 1 Tab PO DAILY Acetaminophen 325 Mg Tablet 650 Mg PO PRN Q4HRS PRN Vitals/I & O Vital Sign - Last 24 Hours 12/08/19 12/08/19 12/08/19 12/08/19 12:38 15:00 19:00 19:13 Temp 99.1 100.3 99.1 100.3 Pulse 90 89 87 102 Resp 16 17 B/P (MAP) 142/101 (115) 137/67 (90) 142/101 Pulse Ox 98 95 O2 Delivery Nasal Cannula Nasal Cannula O2 Flow Rate 2.0 2.0 12/08/19 12/08/19 12/09/19 12/09/19 19:20 23:00 01:11 03:00 Temp 98.7 98.9 98.7 98.9 Pulse 64 94 73 Resp 17 18 B/P (MAP) 152/87 (108) 160/74 151/90 (110) Pulse Ox 98 92 O2 Delivery Nasal Cannula Nasal Cannula Nasal Cannula O2 Flow Rate 2.0 2.0 2.0 12/09/19 12/09/19 06:10 07:00 Temp 99.3 99.3 Pulse 84 92 Resp 20 B/P (MAP) 151/90 134/58 (83) Pulse Ox 92 O2 Delivery Nasal Cannula O2 Flow Rate 2.0 Intake and Output 12/08/19 12/08/19 12/09/19 15:00 23:00 07:00 Intake Total 0 ml 938 ml Balance 0 ml 938 ml Images MRI Brain without contrast History:CVA Technique: Multiplanar, multisequential noncontrast MR imaging was performed of the brain. Comparison: CT head exam December 07, 2019 Findings: There is some motion degradation. There is no restricted diffusion suggestive of acute infarct. There is fairly severe supratentorial atrophy, ventriculomegaly fairly proportionate to sulcal spaces. There is no intra-axial mass effect, extra-axial fluid collection or hematoma, or midline shift. There is scattered [id number] T2 and FLAIR hyperintense signal of the supratentorial parenchyma bilaterally. There are old lacunar infarcts of the bilateral watkins radiata, left basal ganglia, and of the radha. There is preservation of the major arterial intracranial flow voids at the skull base. There is mild ethmoid air cell mucosal thickening greater anteriorly. Mastoid air cells are aerated. Cerebellar tonsils are normal in location. There is preserved marrow signal of the clivus. There is no abnormality of pineal gland or pituitary gland. Impression: 1. No acute infarct is identified. 2. 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 3. Scattered T2 and FLAIR hyperintense signal of the supratentorial parenchyma is nonspecific, more commonly due to chronic ischemic disease in a patient this age. There are also old lacunar infarcts as stated Justicifation of Admission Dx: Justifications for Admission: Justification of Admission Dx: Yes Stroke - Ischemic: Stroke-Ischemic AAYUSH MOREJON MD Dec 09, 2019 12:11
[2019-12-09] MEDS: ACETAMINOPHEN 650 MG SUPP.RECT. PR PRN (12:52)
--- NOTE | 2019-12-09 13:08 | CONS ---
DATE OF CONSULTATION: 12/09/2019 REFERRING PHYSICIAN: Judy Bee MD REASON FOR CONSULTATION: Cough, aspiration, questionable COVID-19. HISTORY OF PRESENT ILLNESS: A 74-year-old male, group home resident, history of CVA with right-sided weakness, was brought to the ER on 12/07/2019 with new-onset facial droop. The patient is nonverbal with chronic deficits. History obtained from medical chart and staff. The patient's white count was 6.3 on arrival. Creatinine was 1.1. Troponin was normal. He had dehydration, hyponatremia, received some IV fluids. CT showed possible chronic versus subacute possible infarct. Chest x-ray did not reveal any acute infiltrate. The patient was started on empiric antibiotics. ID consult has been requested for further evaluation and treatment. Per nursing staff, the patient had a COVID test done at a group home facility, which was reported positive on 12/05/2019, though we do not have confirmation at this time. The patient had a brain MRI, which showed no acute infarct, fairly severe supratentorial atrophy with chronic ischemic changes. PAST MEDICAL HISTORY: History of CVA, right-sided weakness, GERD, dysphagia, hypertension, urinary incontinence, history of hernia repair. SOCIAL HISTORY: [facility] resident. No smoking. No alcohol. CURRENT MEDICATIONS: Zosyn, Medrol, aspirin, pantoprazole, acetaminophen, sennoside docusate, potassium chloride, hydralazine. ALLERGIES: No known drug allergies. REVIEW OF SYSTEMS: Unable to obtain. PHYSICAL EXAMINATION: VITAL SIGNS: Temperature 99.3, pulse 92, respiratory rate 20, blood pressure 134/58, oxygen saturation 92% on 2 liters by nasal cannula, T-max 100.6. GENERAL: Alert, awake male, in no acute distress. HEENT: Normocephalic, atraumatic. No thrush. NECK: Supple. LUNGS: Decreased breath sound at the bases, otherwise clear. HEART: S1, S2. ABDOMEN: Soft, nontender, nondistended. EXTREMITIES: Multiple contractures, mainly on the right side. No edema. DERMATOLOGIC: Warm, dry. No generalized rash. PSYCHIATRIC: Calm. LABORATORY DATA: WBC 5.2, hemoglobin 13.6, hematocrit 41.5, platelets 142. Sodium 151, potassium 4.1, chloride 115, bicarb 27, BUN 27, creatinine 1.1, glucose 120, magnesium 2.7. AST 79, ALT 59, alk phos 55. Total protein 6.6, albumin 2.5. MICROBIOLOGY: UA and urine culture pending. IMAGIN. Chest x-ray as above. 2. CT head as above. 3. Brain MRI as above. IMPRESSION: 1. Fever. 2. Possible aspiration. 3. History of cerebrovascular accident. MRI Brain neg for acute process 4. Hypernatremia. 5. Dehydration. 6. Possible positive COVID. 7. Abnormal liver function tests. 8. Protein-calorie malnutrition. RECOMMENDATIONS: 1. Continue empiric Zosyn. 2. Nursing staff is trying to retrieve results from group home regarding possible positive COVID reported from 12/05/2019. 3. Maintain aspiration precaution. 4. Follow up labs and cultures. 5. Continue supportive care. Thank you, Dr. Bee, for consulting Infectious Disease to participate in this patient's care. If you have any questions, do not hesitate to contact me. CARMEN LARA MD DR: MANUEL/merlin JOB#: [id number] / [id number] JASSI
--- NOTE | 2019-12-09 14:11 | PDOC2 ---
CONSULT Date of Consult Date of Consult DATE: 12/09/19 TIME: 14:02 Reason for Consult Reason for Consult: HYPERNATREMIA AND JESSICA Referring Physician Referring Physician: SUMAYA Identification/Chief Complaint Chief Complaint SOB, WEAKNESS, CONFUSION. Source Source: Chart review History of Present Illness Reason for Visit: THIS IS A 74 YR OLD WITH CONFUSION, AND COUGHING WITH SOME SOB. HX OF CVA AND RIGHT SIDED WEAKNESS. ALSO HX OF DYSPHAGIA. NO CKD NOTED. NO REPORT OF ANY OTHER HX. SUSPECT HE HAS SOME BPH. NA OF 151 AND BUN AND CR ARE UP SOME WELL. NO NEPHROTOXINS. HEMODYNAMICALLY STABLE. HE HAS ALSO HAD A FEVER AND IS CURRENTLY A PUI FOR COVID 19. NEURO EVAL FOR POSSIBLE NEW CVA WELL. Past Medical History Cardiovascular: HTN CENTRAL NERVOUS SYSTEM: CVA GI: GERD, Other (dysphagia) Infectious disease: Other (COVID) Renal/: UTI, Urinary Incontinence Past Surgical History Past Surgical History: Hernia Repair (right inguinal) Family History Family History: Family History Unknown Social History No ALCOHOL: none Drugs: None Lives: [facility] Current Problem List Problem List Problems Medical Problems: (1) Dehydration Status: Acute (2) Facial droop Status: Acute (3) Hypernatremia Status: Acute Current Medications Current Medications Current Medications Sodium Chloride 1,000 ml @ 1,000 mls/hr 1X ONCE IV ; Start 12/07/19 at 16:30; Stop 12/07/19 at 17:29; Status DC Acetaminophen (Tylenol) 650 mg PRN Q4HRS PRN PO FEVER > 100.3'F; Start 12/07/19 at 17:45 Amlodipine Besylate (Norvasc) 10 mg DAILY PO ; Start 12/08/19 at 09:00; Stop 12/08/19 at 10:59; Status DC Aspirin (Aspirin Chewable) 81 mg DAILY PO ; Start 12/08/19 at 09:00 Vitamin D (Vitamin D3) 1,000 unit WEEKLY PO ; Start 12/14/19 at 09:00 Docusate Sodium (Colace) 100 mg BID PO ; Start 12/07/19 at 21:00 Sennosides (Senna) 8.6 mg BID PO ; Start 12/07/19 at 21:00 Hydralazine HCl (Apresoline Inj) 10 mg PRN Q4HRS PRN IVP FOR SBP > 160; Start 12/07/19 at 17:45 Potassium Chloride/Dextrose/ Sod Cl 1,000 ml @ 150 mls/hr Q6H40M IV Last administered on 12/09/19at 09:14; Start 12/07/19 at 18:30 Enoxaparin Sodium (Lovenox 30mg Syringe) 30 mg Q24H SQ Last administered on 12/07/19at 22:21; Start 12/07/19 at 19:00; Stop 12/08/19 at 12:12; Status DC Pantoprazole Sodium (PROTONIX VIAL for IV PUSH) 40 mg DAILY07 IVP Last administered on 12/09/19at 06:13; Start 12/08/19 at 07:00 Metoprolol Tartrate (Lopressor Vial) 5 mg QIDPRN PRN IVP TACHYCARDIA Last administered on 12/07/19at 22:57; Start 12/07/19 at 19:45; Stop 12/08/19 at 11:00; Status DC Acetaminophen (Tylenol Supp) 650 mg PRN Q6HRS PRN [place] MILD PAIN / TEMP > 100.3'F Last administered on 12/09/19at 12:52; Start 12/07/19 at 21:30 Metoprolol Tartrate (Lopressor Vial) 10 mg PRN Q6HRS PRN IVP HYPERTENSION; Start 12/07/19 at 22:45; Stop 12/08/19 at 11:00; Status DC Digoxin (Lanoxin) 500 mcg 1X ONCE IV Last administered on 12/08/19at 10:28; Start 12/08/19 at 10:15; Stop 12/08/19 at 10:16; Status DC Metoprolol Tartrate (Lopressor Vial) 5 mg Q6HRS IVP Last administered on 12/09/19at 12:52; Start 12/08/19 at 12:00 Piperacillin Sod/ Tazobactam Sod (Zosyn Per Pharmacy) 1 each PRN DAILY PRN [facility] SEE COMMENTS; Start 12/09/19 at 10:30 Piperacillin Sod/ Tazobactam Sod 3.375 gm/Sodium Chloride 50 ml @ 100 mls/hr Q6HRS IV Last administered on 12/09/19at 12:04; Start 12/09/19 at 12:00 Active Scripts Active Reported Vitamin D3 (Cholecalciferol (Vitamin D3)) 1,000 Unit Tablet 1 Tab PO WEEKLY Senokot (Sennosides) 8.6 Mg Tablet 1 Tab PO BID Norvasc (Amlodipine Besylate) 10 Mg Tablet 10 Mg PO DAILY Metoprolol Tartrate 25 Mg Tablet 0.5 Tab PO BID Hydrochlorothiazide Capsule (Hydrochlorothiazide) 12.5 Mg Capsule 12.5 Mg PO DAILY Docusate Sodium 100 Mg Capsule 1 Cap PO BID Aspirin 81 Mg Tab.chew 1 Tab PO DAILY Acetaminophen 325 Mg Tablet 650 Mg PO PRN Q4HRS PRN Allergies Allergies: Coded Allergies: No Known Drug Allergies (Unverified , 01/06/14) ROS Review of System UNABLE TO OBTAIN. Physical Exam General: Cooperative, Other (CONFUSED) HEENT: Atraumatic, Other (DRY MUCOSA) Lungs: Clear to auscultation Heart: Regular rate Abdomen: Normal bowel sounds Extremities: No clubbing Neuro: Other (CONFUSED, CHRONIC ASYMMETRY AFTER CVA) Psych/Mental Status: Other (CONFUSED) MUSCULOSKELETAL: Other (ATROPHY AND RETRACTION AFTER CVA, CHRONIC) Vitals VITALS Vital Signs Date Time Temp Pulse Resp B/P (MAP) Pulse Ox O2 Delivery O2 Flow Rate FiO2 12/09/19 12:52 72 145/72 12/09/19 07:00 99.3 20 92 Nasal Cannula 2.0 99.3 Labs Labs Laboratory Tests Test 12/07/19 15:00 12/08/19 03:40 12/09/19 03:50 Sodium Level 150 mmol/L (136-145) 150 mmol/L (136-145) 151 mmol/L (136-145) Potassium Level 3.6 mmol/L (3.5-5.1) 3.5 mmol/L (3.5-5.1) 4.1 mmol/L (3.5-5.1) Chloride Level 110 mmol/L (98-107) 113 mmol/L (98-107) 115 mmol/L (98-107) Carbon Dioxide Level 30 mmol/L (21-32) 29 mmol/L (21-32) 27 mmol/L (21-32) Anion Gap 10 (6-14) 8 (6-14) 9 (6-14) Blood Urea Nitrogen 36 mg/dL (8-26) 40 mg/dL (8-26) 27 mg/dL (8-26) Creatinine 1.1 mg/dL (0.7-1.3) 1.1 mg/dL (0.7-1.3) 1.1 mg/dL (0.7-1.3) Estimated GFR (Cockcroft-Gault) 79.0 79.0 79.0 BUN/Creatinine Ratio 33 (6-20) 36 (6-20) 25 (6-20) Glucose Level 108 mg/dL (70-99) 132 mg/dL (70-99) 120 mg/dL (70-99) Calcium Level 8.9 mg/dL (8.5-10.1) 8.5 mg/dL (8.5-10.1) 8.1 mg/dL (8.5-10.1) Total Bilirubin 0.7 mg/dL (0.2-1.0) 0.6 mg/dL (0.2-1.0) 0.6 mg/dL (0.2-1.0) Aspartate Amino Transf (AST/SGOT) 120 U/L (15-37) 94 U/L (15-37) 79 U/L (15-37) Alanine Aminotransferase (ALT/SGPT) 81 U/L (16-63) 73 U/L (16-63) 59 U/L (16-63) Alkaline Phosphatase 69 U/L (46-116) 59 U/L (46-116) 55 U/L (46-116) Troponin I Quantitative 0.019 ng/mL (0.000-0.055) Total Protein 7.4 g/dL (6.4-8.2) 7.1 g/dL (6.4-8.2) 6.6 g/dL (6.4-8.2) Albumin 3.2 g/dL (3.4-5.0) 2.6 g/dL (3.4-5.0) 2.5 g/dL (3.4-5.0) Albumin/Globulin Ratio 0.8 (1.0-1.7) 0.6 (1.0-1.7) 0.6 (1.0-1.7) White Blood Count 6.4 x10^3/uL (4.0-11.0) 5.2 x10^3/uL (4.0-11.0) Red Blood Count 4.92 x10^6/uL (4.30-5.70) 4.58 x10^6/uL (4.30-5.70) Hemoglobin 14.5 g/dL (13.0-17.5) 13.6 g/dL (13.0-17.5) Hematocrit 43.8 % (39.0-53.0) 41.5 % (39.0-53.0) Mean Corpuscular Volume 89 fL (79-100) 91 fL (79-100) Mean Corpuscular Hemoglobin 30 pg (25-35) 30 pg (25-35) Mean Corpuscular Hemoglobin Concent 33 g/dL (31-37) 33 g/dL (31-37) Red Cell Distribution Width 13.0 % (11.5-14.5) 12.7 % (11.5-14.5) Platelet Count 156 x10^3/uL (140-400) 142 x10^3/uL (140-400) Neutrophils (%) (Auto) 65 % (31-73) 68 % (31-73) Lymphocytes (%) (Auto) 26 % (24-48) 24 % (24-48) Monocytes (%) (Auto) 9 % (0-9) 8 % (0-9) Eosinophils (%) (Auto) 0 % (0-3) 0 % (0-3) Basophils (%) (Auto) 1 % (0-3) 0 % (0-3) Neutrophils # (Auto) 4.1 x10^3/uL (1.8-7.7) 3.5 x10^3/uL (1.8-7.7) Lymphocytes # (Auto) 1.7 x10^3/uL (1.0-4.8) 1.2 x10^3/uL (1.0-4.8) Monocytes # (Auto) 0.6 x10^3/uL (0.0-1.1) 0.4 x10^3/uL (0.0-1.1) Eosinophils # (Auto) 0.0 x10^3/uL (0.0-0.7) 0.0 x10^3/uL (0.0-0.7) Basophils # (Auto) 0.0 x10^3/uL (0.0-0.2) 0.0 x10^3/uL (0.0-0.2) Prothrombin Time 14.2 SEC (11.7-14.0) Prothromb Time International Ratio 1.1 (0.8-1.1) Magnesium Level 2.7 mg/dL (1.8-2.4) Triglycerides Level 49 mg/dL (0-150) Cholesterol Level 126 mg/dL (0-200) LDL Cholesterol, Calculated 50 mg/dL (0-100) VLDL Cholesterol, Calculated 10 mg/dL (0-40) Non-HDL Cholesterol Calculated 60 mg/dL (0-129) HDL Cholesterol 66 mg/dL (40-60) Cholesterol/HDL Ratio 1.9 Laboratory Tests Test 12/09/19 03:50 White Blood Count 5.2 x10^3/uL (4.0-11.0) Red Blood Count 4.58 x10^6/uL (4.30-5.70) Hemoglobin 13.6 g/dL (13.0-17.5) Hematocrit 41.5 % (39.0-53.0) Mean Corpuscular Volume 91 fL (79-100) Mean Corpuscular Hemoglobin 30 pg (25-35) Mean Corpuscular Hemoglobin Concent 33 g/dL (31-37) Red Cell Distribution Width 12.7 % (11.5-14.5) Platelet Count 142 x10^3/uL (140-400) Neutrophils (%) (Auto) 68 % (31-73) Lymphocytes (%) (Auto) 24 % (24-48) Monocytes (%) (Auto) 8 % (0-9) Eosinophils (%) (Auto) 0 % (0-3) Basophils (%) (Auto) 0 % (0-3) Neutrophils # (Auto) 3.5 x10^3/uL (1.8-7.7) Lymphocytes # (Auto) 1.2 x10^3/uL (1.0-4.8) Monocytes # (Auto) 0.4 x10^3/uL (0.0-1.1) Eosinophils # (Auto) 0.0 x10^3/uL (0.0-0.7) Basophils # (Auto) 0.0 x10^3/uL (0.0-0.2) Sodium Level 151 mmol/L (136-145) Potassium Level 4.1 mmol/L (3.5-5.1) Chloride Level 115 mmol/L (98-107) Carbon Dioxide Level 27 mmol/L (21-32) Anion Gap 9 (6-14) Blood Urea Nitrogen 27 mg/dL (8-26) Creatinine 1.1 mg/dL (0.7-1.3) Estimated GFR (Cockcroft-Gault) 79.0 BUN/Creatinine Ratio 25 (6-20) Glucose Level 120 mg/dL (70-99) Calcium Level 8.1 mg/dL (8.5-10.1) Total Bilirubin 0.6 mg/dL (0.2-1.0) Aspartate Amino Transf (AST/SGOT) 79 U/L (15-37) Alanine Aminotransferase (ALT/SGPT) 59 U/L (16-63) Alkaline Phosphatase 55 U/L (46-116) Total Protein 6.6 g/dL (6.4-8.2) Albumin 2.5 g/dL (3.4-5.0) Albumin/Globulin Ratio 0.6 (1.0-1.7) Assessment/Plan Assessment/Plan IMP JESSICA-MILD-NO CKD HYPERNATREMIA ABNORMAL LFT'S EXTRACELLULAR VOLUME DEPLETION DYSPHAGIA HX OF CVA FEVER POSS COVID 19 PROB ASPIRATION PLAN ON ANTIBIOTICS HYDRATION PPN FOR NOW NEED SWALLOW STUDY EMPIRIC ANTIBIOTICS WILL FOLLOW D/W ATTENDING HEATHER SPRINGER MD Dec 09, 2019 14:11
[2019-12-09 15:00] VITALS: BP 166/78
--- NOTE | 2019-12-09 15:06 | PDOC ---
CARDIO Progress Notes Date and Time Date of Service 12/09/2019 Time of Evaluation 1000 Subjective Subjective: No Chest Pain, No shortness of breath, Other (mainly nonverbal) Vitals Vitals Vital Signs Date Time Temp Pulse Resp B/P (MAP) Pulse Ox O2 Delivery O2 Flow Rate FiO2 12/09/19 12:52 72 145/72 12/09/19 07:00 99.3 20 92 Nasal Cannula 2.0 99.3 Weight Weight [ ] Input and Output Intake and Output Intake and Output 12/09/19 06:59 Intake Total 938 ml Balance 938 ml Intake Oral 0 ml IV Total 938 ml # Voids 7 # Bowel Movements 2 Laboratory Labs Laboratory Tests Test 12/09/19 03:50 White Blood Count 5.2 x10^3/uL (4.0-11.0) Red Blood Count 4.58 x10^6/uL (4.30-5.70) Hemoglobin 13.6 g/dL (13.0-17.5) Hematocrit 41.5 % (39.0-53.0) Mean Corpuscular Volume 91 fL (79-100) Mean Corpuscular Hemoglobin 30 pg (25-35) Mean Corpuscular Hemoglobin Concent 33 g/dL (31-37) Red Cell Distribution Width 12.7 % (11.5-14.5) Platelet Count 142 x10^3/uL (140-400) Neutrophils (%) (Auto) 68 % (31-73) Lymphocytes (%) (Auto) 24 % (24-48) Monocytes (%) (Auto) 8 % (0-9) Eosinophils (%) (Auto) 0 % (0-3) Basophils (%) (Auto) 0 % (0-3) Neutrophils # (Auto) 3.5 x10^3/uL (1.8-7.7) Lymphocytes # (Auto) 1.2 x10^3/uL (1.0-4.8) Monocytes # (Auto) 0.4 x10^3/uL (0.0-1.1) Eosinophils # (Auto) 0.0 x10^3/uL (0.0-0.7) Basophils # (Auto) 0.0 x10^3/uL (0.0-0.2) Sodium Level 151 mmol/L (136-145) Potassium Level 4.1 mmol/L (3.5-5.1) Chloride Level 115 mmol/L (98-107) Carbon Dioxide Level 27 mmol/L (21-32) Anion Gap 9 (6-14) Blood Urea Nitrogen 27 mg/dL (8-26) Creatinine 1.1 mg/dL (0.7-1.3) Estimated GFR (Cockcroft-Gault) 79.0 BUN/Creatinine Ratio 25 (6-20) Glucose Level 120 mg/dL (70-99) Calcium Level 8.1 mg/dL (8.5-10.1) Total Bilirubin 0.6 mg/dL (0.2-1.0) Aspartate Amino Transf (AST/SGOT) 79 U/L (15-37) Alanine Aminotransferase (ALT/SGPT) 59 U/L (16-63) Alkaline Phosphatase 55 U/L (46-116) Total Protein 6.6 g/dL (6.4-8.2) Albumin 2.5 g/dL (3.4-5.0) Albumin/Globulin Ratio 0.6 (1.0-1.7) Physical Exam Chest: Symmetric LUNGS: Other (diminished) Heart: RRR (SR with PVCs) Abdomen: Other (soft) Neurology: alert, other (mainly nonverbal) Other Exams Discussed exam with relief map modeler Assessment 1. Possible subdural hematoma: per CT Unclear if any recent fall. Neurology following 2. AFIB RVR: new finding. initial EKG in SR and no changes by comparison. Maintaining SR with intermittent PVCs 3. HTN: controlled 4. Past CVA/aphasia/dysphagia 5. COVID-19 with fever: POA, noted initially at [facility] [place] [facility] 6. Mild hypernatremia: per PCP Recommendations 1. Remains NPO. Continue IV lopressor, PO conversion when PO allowed 2. Poor candidate for anticoagulation if truly has SDH. ASA 3. Covid treatment per PCP. Supportive care per cardiac standpoint. No TTE at this time. 4. Conservative measures cardiac monreal given significant debility and comorbid conditions Justicifation of Admission Dx: Justifications for Admission: Justification of Admission Dx: Yes Stroke - Ischemic: Stroke-Ischemic CINDY GREEN APRN Dec 09, 2019 15:06
[2019-12-09] MEDS: AMINO AC 3%/ELECTROLYTE/GLYCER 1,000 ML IV SCH (15:55)
[2019-12-09 15:59] VITALS: BP 133/62
--- NOTE | 2019-12-09 16:17 | NUR ---
Wound Care: Wound care regarding right heel wound. Patient is Covid+, therefore wound care assessed pics in chart and spoke with RN. Recommendations for skin prep and foam dressing to right heel, and apply heel medix boot. Dressing change instructions left with RN. Wound care will continue to check chart for possible changes and to reassess.
--- NOTE | 2019-12-09 17:20 | NUR ---
SW following. Spoke with RN and reviewed chart. Pt from [facility], , (fax). Coordinated care with Dr. Bee who stated pt is not ready for discharge back to [facility]. SW to continue following.
[2019-12-09 18:00] VITALS: BP 151/70
[2019-12-09 19:59] LABS: BILIRUBIN,URINE NEGATIVE (NEG); CLARITY,URINE CLEAR; COLOR,URINE YELLOW; NITRITE,URINE NEGATIVE (NEG); PROTEIN,URINE 30 mg/dL (NEG-TRACE)
[2019-12-09 20:06] LABS: SQUAMOUS EPITHELIAL CELL,UR FEW /LPF
[2019-12-09 20:07] LABS: AMORPHOUS SEDIMENT,UR PRESENT /HPF; BACTERIA,URINE FEW /HPF (0-FEW)
[2019-12-09 23:00] VITALS: BP 148/80
[2019-12-10 03:00] VITALS: BP 122/67
[2019-12-10] MEDS: AMINO AC 3%/ELECTROLYTE/GLYCER 1,000 ML IV SCH ×2 (03:52→16:52)
[2019-12-10 04:41] LABS: BASO % 0 % (0-3); EOS % 0 % (0-3); HEMATOCRIT 41.5 % (39.0-53.0); HEMOGLOBIN 13.6 g/dL (13.0-17.5); LYMPH % 19 % (24-48); MEAN CORPUSCULAR HEMOGLOBIN 30 pg (25-35); MEAN CORPUSCULAR HGB CONC 33 g/dL (31-37); MEAN CORPUSCULAR VOLUME 91 fL (79-100); MONO # 0.3 x10^3/uL (0.0-1.1); MONO % 5 % (0-9); NEUT # 4.2 x10^3/uL (1.8-7.7); NEUT % 75 % (31-73); PLATELET COUNT 141 x10^3/uL (140-400); RED BLOOD COUNT 4.56 x10^6/uL (4.30-5.70); RED CELL DISTRIBUTION WIDTH 12.7 % (11.5-14.5); WHITE BLOOD COUNT 5.6 x10^3/uL (4.0-11.0)
[2019-12-10 05:23] LABS: ALBUMIN 2.3 g/dL (3.4-5.0); ALBUMIN/GLOBULIN RATIO 0.6 (1.0-1.7); GFR 88.1; POTASSIUM 4.5 mmol/L (3.5-5.1); TOTAL BILIRUBIN 0.6 mg/dL (0.2-1.0)
[2019-12-10 05:39] LABS: MAGNESIUM 2.5 mg/dL (1.8-2.4); PHOSPHORUS 2.8 mg/dL (2.6-4.7)
[2019-12-10 07:00] VITALS: BP 149/69
[2019-12-10] MEDS: PIPERACILLIN/TAZOBACTAM 3.375 GM in IV NORMAL SALINE 50ML 50 ML IV SCH ×4 (07:09→23:57)
[2019-12-10] MEDS: METOPROLOL TARTRATE 5 MG/5 ML VIAL. IVP SCH ×4 (07:10→23:57)
[2019-12-10] MEDS: PANTOPRAZOLE IV PUSH 40 MG VIAL. IVP SCH (07:10)
[2019-12-10] MEDS: DOCUSATE SODIUM 100 MG CAPSULE. PO SCH ×2 (09:00→21:00)
[2019-12-10] MEDS: ASPIRIN CHEWABLE 81 MG TABLET. PO SCH (09:00)
[2019-12-10] MEDS: SENNOSIDES 8.6 MG TABLET PO SCH ×2 (09:00→21:00)
--- NOTE | 2019-12-10 09:43 | PDOC ---
IM PROGRESS NOTES- Subjective Subjective The patient speech is not clear and unable to do systems review. Patient is much less responsive this morning than yesterday. Objective Vitals/I&O Vital Signs Date Time Temp Pulse Resp B/P (MAP) Pulse Ox O2 Delivery O2 Flow Rate FiO2 12/10/19 07:10 77 122/67 12/10/19 07:00 102.3 20 95 Room Air 102.3 12/09/19 07:00 2.0 I & O 12/09/19 12/09/19 12/10/19 15:00 23:00 07:00 Intake Total 0 ml 0 ml Output Total 650 ml Balance 0 ml -650 ml Physical Exam Physical Exam GENERAL: The patient is an elderly male who is much more alert and more responsive today, appears to be chronically and acutely ill and in mild distress. He is unable to communicate and has been coughing while trying to talk. Throat, unable to examine as the patient is coughing LUNGS: Decreased breath sounds bilaterally. Occasional rhonchi CARDIOVASCULAR: S1, S2 regular. ABDOMEN: Soft, nontender, no guarding, no rigidity. Bowel sounds present. EXTREMITIES: No edema. The patient has right-sided weakness with contracture. He also has a facial droop on the right side, but I am not sure if it is more pronounced than before as I have not seen him for some time. CENTRAL NERVOUS SYSTEM: Patient is much more alert,, speech is not clear. He has weakness of both upper extremities. He has some weakness of the lower extremities but able to move them. Unable to assess properly as patient is unable to cooperate Labs Laboratory Tests Test 12/09/19 19:50 12/10/19 03:45 Urine Collection Type Unknown Urine Color Yellow Urine Clarity Clear Urine pH 6.0 (<5.0-8.0) Urine Specific [place] 1.025 (1.000-1.030) Urine Protein 30 mg/dL (NEG-TRACE) Urine Glucose (UA) Negative mg/dL (NEG) Urine Ketones (Stick) Negative mg/dL (NEG) Urine Blood Moderate (NEG) Urine Nitrite Negative (NEG) Urine Bilirubin Negative (NEG) Urine Urobilinogen Dipstick 1.0 mg/dL (0.2 mg/dL) Urine Leukocyte Esterase Small (NEG) Urine RBC 6-10 /HPF (0-2) Urine WBC 1-4 /HPF (0-4) Urine Squamous Epithelial Cells Few /LPF Urine Amorphous Sediment Present /HPF Urine Bacteria Few /HPF (0-FEW) Urine Mucus Mod /LPF White Blood Count 5.6 x10^3/uL (4.0-11.0) Red Blood Count 4.56 x10^6/uL (4.30-5.70) Hemoglobin 13.6 g/dL (13.0-17.5) Hematocrit 41.5 % (39.0-53.0) Mean Corpuscular Volume 91 fL (79-100) Mean Corpuscular Hemoglobin 30 pg (25-35) Mean Corpuscular Hemoglobin Concent 33 g/dL (31-37) Red Cell Distribution Width 12.7 % (11.5-14.5) Platelet Count 141 x10^3/uL (140-400) Neutrophils (%) (Auto) 75 % (31-73) H Lymphocytes (%) (Auto) 19 % (24-48) L Monocytes (%) (Auto) 5 % (0-9) Eosinophils (%) (Auto) 0 % (0-3) Basophils (%) (Auto) 0 % (0-3) Neutrophils # (Auto) 4.2 x10^3/uL (1.8-7.7) Lymphocytes # (Auto) 1.0 x10^3/uL (1.0-4.8) Monocytes # (Auto) 0.3 x10^3/uL (0.0-1.1) Eosinophils # (Auto) 0.0 x10^3/uL (0.0-0.7) Basophils # (Auto) 0.0 x10^3/uL (0.0-0.2) Sodium Level 145 mmol/L (136-145) Potassium Level 4.5 mmol/L (3.5-5.1) Chloride Level 112 mmol/L (98-107) H Carbon Dioxide Level 24 mmol/L (21-32) Anion Gap 9 (6-14) Blood Urea Nitrogen 22 mg/dL (8-26) Creatinine 1.0 mg/dL (0.7-1.3) Estimated GFR (Cockcroft-Gault) 88.1 BUN/Creatinine Ratio 22 (6-20) H Glucose Level 101 mg/dL (70-99) H Calcium Level 8.0 mg/dL (8.5-10.1) L Phosphorus Level 2.8 mg/dL (2.6-4.7) Magnesium Level 2.5 mg/dL (1.8-2.4) H Total Bilirubin 0.6 mg/dL (0.2-1.0) Aspartate Amino Transferase (AST) 74 U/L (15-37) H Alanine Aminotransferase (ALT) 58 U/L (16-63) Alkaline Phosphatase 60 U/L (46-116) Total Protein 6.0 g/dL (6.4-8.2) L Albumin 2.3 g/dL (3.4-5.0) L Albumin/Globulin Ratio 0.6 (1.0-1.7) L Laboratory Tests 12/10/19 03:45 Laboratory Tests 12/10/19 03:45 Meds Current Medications Medications (Trade) Dose Ordered Sig/Aung Route PRN Reason Start Time Stop Time Status Last Admin Dose Admin Piperacillin Sod/ Tazobactam Sod 3.375 gm/Sodium Chloride 50 ml @ 100 mls/hr Q6HRS IV 12/09/19 12:00 12/10/19 07:09 Amino Acids/ Glycerin/ Electrolytes 1,000 ml @ 80 mls/hr [id number] IV 12/09/19 15:00 12/10/19 03:52 Assessment Assessment 1. Acute cerebrovascular accident. 2. Hypertension, not controlled. 3. Dysphagia. 4. Gastroesophageal reflux disease. 5. Dehydration. 6. Elevated LFTs. 7. Electrolyte imbalance with hypernatremia and hypokalemia. 8. Physical deconditioning. 9. Low-grade fever. 10. Possible aspiration bronchitis. 11. Acute respiratory failure. Possible COVID-19 infection PLAN: 1. Start IV D5 half normal saline with KCl 20 mEq in each liter to run at 125 mL per hour. 2. Dysphagia. We will keep the patient n.p.o. and have speech therapy evaluation. 3. Acute cerebrovascular accident. Consult Dr. Hood. Consult PT, OT, speech therapy, and also consult Dr. Jade for rehabilitation evaluation and management. MRI has been ordered . No evidence of subdural hematoma on MRI MRI Impression: 1. No acute infarct is identified. 2. 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 3. Scattered T2 and FLAIR hyperintense signal of the supratentorial parenchyma is nonspecific, more commonly due to chronic ischemic disease in a patient this age. There are also old lacunar infarcts as stated. 4. Dehydration. Start IV fluids. No improvement noted so will increase IV fluids.Hypernatremia improving. Sodium is 145. Dr. Camacho has been consulted. Patient is now on Clinimix. 5. Hypertension. Start IV hydralazine. We will renew the [facility] medications, but will not start them yet as the patient is n.p.o. 6. Elevated LFTs. Recheck labs in a.m. Prognosis of this patient is extremely poor. Await COVID-19 test report that was done by the facility, i.e[facility]. The staff called the [facility] and apparently the patient was on the COVID-19 unit but not sure about the report. Order COVID -19 PCR test here. Not done yesterday. Staff will call [facility] again. Reorder if not done.D/w staff. 7. Atrial fibrillation-IV digoxin was given by the baggage checker. Started on IV Lopressor on schedule. Patient remains in sinus rhythm with few PVCs 8. Acute respiratory failure-continue oxygen by nasal cannula. Pulmonary consult.Cough ? aspiration. start Zosyn. consult ID. 9. Fever possibly due to aspiration. Continue IV Zosyn. Order blood cultures x2. Urinalysis reviewed 10. Dysphagia-still needs to be n.p.o. but will evaluate with the help of speech therapy again tomorrow. Prognosis of this patient is very poor For details, please refer to the orders. Plan Plan For more details regarding further plans, please refer to the orders. Justicifation of Admission Dx: Justifications for Admission: Justification of Admission Dx: Yes Stroke - Ischemic: Stroke-Ischemic Nutrition Consultation Dietary Evaluation: Recommendations by RD: Dietary education by RD, PPN/TPN Comments: REC PPN until pt is able to complete [employer] eval REC diet per [employer] w/ supplements when able REC mvi and vit c per wound protocal Expected Outcomes/Goals: diet advancement vs nutrition support Interpretation of weight loss: >10% in 6 months Malnutrition Findings: Food and Nutrition Intake (Sev: <50% est energy req 5days Weight Status: Underweight JEROME SHELL MD Dec 10, 2019 09:43
--- NOTE | 2019-12-10 10:51 | PDOC ---
PULMONARY PROGRESS NOTES DATE: 12/10/19 TIME: 10:49 Subjective does not follow commands on RA Vitals Vital Signs Date Time Temp Pulse Resp B/P (MAP) Pulse Ox O2 Delivery O2 Flow Rate FiO2 12/10/19 07:10 77 122/67 12/10/19 07:00 102.3 20 95 Room Air 102.3 12/09/19 07:00 2.0 General: No acute distress Lungs: Clear Cardiovascular: S1 Abdomen: Soft Extremities: No Edema Skin: Warm Labs Laboratory Tests Test 12/09/19 03:50 12/09/19 19:50 12/10/19 03:45 White Blood Count 5.2 x10^3/uL (4.0-11.0) 5.6 x10^3/uL (4.0-11.0) Red Blood Count 4.58 x10^6/uL (4.30-5.70) 4.56 x10^6/uL (4.30-5.70) Hemoglobin 13.6 g/dL (13.0-17.5) 13.6 g/dL (13.0-17.5) Hematocrit 41.5 % (39.0-53.0) 41.5 % (39.0-53.0) Mean Corpuscular Volume 91 fL (79-100) 91 fL (79-100) Mean Corpuscular Hemoglobin 30 pg (25-35) 30 pg (25-35) Mean Corpuscular Hemoglobin Concent 33 g/dL (31-37) 33 g/dL (31-37) Red Cell Distribution Width 12.7 % (11.5-14.5) 12.7 % (11.5-14.5) Platelet Count 142 x10^3/uL (140-400) 141 x10^3/uL (140-400) Neutrophils (%) (Auto) 68 % (31-73) 75 % (31-73) Lymphocytes (%) (Auto) 24 % (24-48) 19 % (24-48) Monocytes (%) (Auto) 8 % (0-9) 5 % (0-9) Eosinophils (%) (Auto) 0 % (0-3) 0 % (0-3) Basophils (%) (Auto) 0 % (0-3) 0 % (0-3) Neutrophils # (Auto) 3.5 x10^3/uL (1.8-7.7) 4.2 x10^3/uL (1.8-7.7) Lymphocytes # (Auto) 1.2 x10^3/uL (1.0-4.8) 1.0 x10^3/uL (1.0-4.8) Monocytes # (Auto) 0.4 x10^3/uL (0.0-1.1) 0.3 x10^3/uL (0.0-1.1) Eosinophils # (Auto) 0.0 x10^3/uL (0.0-0.7) 0.0 x10^3/uL (0.0-0.7) Basophils # (Auto) 0.0 x10^3/uL (0.0-0.2) 0.0 x10^3/uL (0.0-0.2) Sodium Level 151 mmol/L (136-145) 145 mmol/L (136-145) Potassium Level 4.1 mmol/L (3.5-5.1) 4.5 mmol/L (3.5-5.1) Chloride Level 115 mmol/L (98-107) 112 mmol/L (98-107) Carbon Dioxide Level 27 mmol/L (21-32) 24 mmol/L (21-32) Anion Gap 9 (6-14) 9 (6-14) Blood Urea Nitrogen 27 mg/dL (8-26) 22 mg/dL (8-26) Creatinine 1.1 mg/dL (0.7-1.3) 1.0 mg/dL (0.7-1.3) Estimated GFR (Cockcroft-Gault) 79.0 88.1 BUN/Creatinine Ratio 25 (6-20) 22 (6-20) Glucose Level 120 mg/dL (70-99) 101 mg/dL (70-99) Calcium Level 8.1 mg/dL (8.5-10.1) 8.0 mg/dL (8.5-10.1) Total Bilirubin 0.6 mg/dL (0.2-1.0) 0.6 mg/dL (0.2-1.0) Aspartate Amino Transf (AST/SGOT) 79 U/L (15-37) 74 U/L (15-37) Alanine Aminotransferase (ALT/SGPT) 59 U/L (16-63) 58 U/L (16-63) Alkaline Phosphatase 55 U/L (46-116) 60 U/L (46-116) Total Protein 6.6 g/dL (6.4-8.2) 6.0 g/dL (6.4-8.2) Albumin 2.5 g/dL (3.4-5.0) 2.3 g/dL (3.4-5.0) Albumin/Globulin Ratio 0.6 (1.0-1.7) 0.6 (1.0-1.7) Urine Collection Type Unknown Urine Color Yellow Urine Clarity Clear Urine pH 6.0 (<5.0-8.0) Urine Specific [place] 1.025 (1.000-1.030) Urine Protein 30 mg/dL (NEG-TRACE) Urine Glucose (UA) Negative mg/dL (NEG) Urine Ketones (Stick) Negative mg/dL (NEG) Urine Blood Moderate (NEG) Urine Nitrite Negative (NEG) Urine Bilirubin Negative (NEG) Urine Urobilinogen Dipstick 1.0 mg/dL (0.2 mg/dL) Urine Leukocyte Esterase Small (NEG) Urine RBC 6-10 /HPF (0-2) Urine WBC 1-4 /HPF (0-4) Urine Squamous Epithelial Cells Few /LPF Urine Amorphous Sediment Present /HPF Urine Bacteria Few /HPF (0-FEW) Urine Mucus Mod /LPF Phosphorus Level 2.8 mg/dL (2.6-4.7) Magnesium Level 2.5 mg/dL (1.8-2.4) Laboratory Tests Test 12/09/19 19:50 12/10/19 03:45 Urine Collection Type Unknown Urine Color Yellow Urine Clarity Clear Urine pH 6.0 (<5.0-8.0) Urine Specific [place] 1.025 (1.000-1.030) Urine Protein 30 mg/dL (NEG-TRACE) Urine Glucose (UA) Negative mg/dL (NEG) Urine Ketones (Stick) Negative mg/dL (NEG) Urine Blood Moderate (NEG) Urine Nitrite Negative (NEG) Urine Bilirubin Negative (NEG) Urine Urobilinogen Dipstick 1.0 mg/dL (0.2 mg/dL) Urine Leukocyte Esterase Small (NEG) Urine RBC 6-10 /HPF (0-2) Urine WBC 1-4 /HPF (0-4) Urine Squamous Epithelial Cells Few /LPF Urine Amorphous Sediment Present /HPF Urine Bacteria Few /HPF (0-FEW) Urine Mucus Mod /LPF White Blood Count 5.6 x10^3/uL (4.0-11.0) Red Blood Count 4.56 x10^6/uL (4.30-5.70) Hemoglobin 13.6 g/dL (13.0-17.5) Hematocrit 41.5 % (39.0-53.0) Mean Corpuscular Volume 91 fL (79-100) Mean Corpuscular Hemoglobin 30 pg (25-35) Mean Corpuscular Hemoglobin Concent 33 g/dL (31-37) Red Cell Distribution Width 12.7 % (11.5-14.5) Platelet Count 141 x10^3/uL (140-400) Neutrophils (%) (Auto) 75 % (31-73) Lymphocytes (%) (Auto) 19 % (24-48) Monocytes (%) (Auto) 5 % (0-9) Eosinophils (%) (Auto) 0 % (0-3) Basophils (%) (Auto) 0 % (0-3) Neutrophils # (Auto) 4.2 x10^3/uL (1.8-7.7) Lymphocytes # (Auto) 1.0 x10^3/uL (1.0-4.8) Monocytes # (Auto) 0.3 x10^3/uL (0.0-1.1) Eosinophils # (Auto) 0.0 x10^3/uL (0.0-0.7) Basophils # (Auto) 0.0 x10^3/uL (0.0-0.2) Sodium Level 145 mmol/L (136-145) Potassium Level 4.5 mmol/L (3.5-5.1) Chloride Level 112 mmol/L (98-107) Carbon Dioxide Level 24 mmol/L (21-32) Anion Gap 9 (6-14) Blood Urea Nitrogen 22 mg/dL (8-26) Creatinine 1.0 mg/dL (0.7-1.3) Estimated GFR (Cockcroft-Gault) 88.1 BUN/Creatinine Ratio 22 (6-20) Glucose Level 101 mg/dL (70-99) Calcium Level 8.0 mg/dL (8.5-10.1) Phosphorus Level 2.8 mg/dL (2.6-4.7) Magnesium Level 2.5 mg/dL (1.8-2.4) Total Bilirubin 0.6 mg/dL (0.2-1.0) Aspartate Amino Transf (AST/SGOT) 74 U/L (15-37) Alanine Aminotransferase (ALT/SGPT) 58 U/L (16-63) Alkaline Phosphatase 60 U/L (46-116) Total Protein 6.0 g/dL (6.4-8.2) Albumin 2.3 g/dL (3.4-5.0) Albumin/Globulin Ratio 0.6 (1.0-1.7) Medications Active Scripts Medications Dose Route/Sig Max Daily Dose Days Date Category Vitamin D3 (Cholecalciferol (Vitamin D3)) 1,000 Unit Tablet 1 Tab PO WEEKLY 05/01/18 Reported Senokot (Sennosides) 8.6 Mg Tablet 1 Tab PO BID 05/01/18 Reported Norvasc (Amlodipine Besylate) 10 Mg Tablet 10 Mg PO DAILY 05/01/18 Reported Metoprolol Tartrate 25 Mg Tablet 0.5 Tab PO BID 05/01/18 Reported Hydrochlorothiazide Capsule (Hydrochlorothiazide) 12.5 Mg Capsule 12.5 Mg PO DAILY 05/01/18 Reported Docusate Sodium 100 Mg Capsule 1 Cap PO BID 05/01/18 Reported Aspirin 81 Mg Tab.chew 1 Tab PO DAILY 05/01/18 Reported Acetaminophen 325 Mg Tablet 650 Mg PO PRN Q4HRS PRN 05/01/18 Reported Comments CXR IMPRESSION: 1. No acute chest disease. Impression . IMPRESSION: 1. Dyspnea with cough in a patient who has suspected acute or subacute stroke. Likely has risk factors for aspiration pneumonia. ON empiric antibiotic and follow the clinical course. 2. Subacute new infarct and possible subdural hematoma versus motion artifact. 3. 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 We will follow Neurology recommendation. 3. No significant tobacco history. Plan . RECOMMENDATIONS: Discussed with RN. At this time, continue empiric antibiotic. P.r.n. bronchodilators. We will repeat chest x-ray in am Follow Neurology recommendations-- MRI negative for any acute process, demonstrated old lacunar infract May need speech therapy. COVID-19 positive. on RA, no soa can go back to [facility] Discussed with RN. JAMIE COLLAZO MD Dec 10, 2019 10:51
[2019-12-10 11:00] VITALS: BP 156/101
--- NOTE | 2019-12-10 11:41 | PDOC ---
Renal-Progress Notes Subjective Notes Notes CONFUSED History of Present Illness Hx of present illness STABLE Vitals Vitals Vital Signs Date Time Temp Pulse Resp B/P (MAP) Pulse Ox O2 Delivery O2 Flow Rate FiO2 12/10/19 07:10 77 122/67 12/10/19 07:00 102.3 20 95 Room Air 102.3 12/09/19 07:00 2.0 Weight Weight [ ] I.O. Intake and Output Intake and Output 12/10/19 07:00 Intake Total 0 ml Output Total 650 ml Balance -650 ml Intake Oral 0 ml Output Urine Total 650 ml # Voids 1 # Bowel Movements 1 Labs Labs Laboratory Tests Test 12/09/19 19:50 12/10/19 03:45 Urine Collection Type Unknown Urine Color Yellow Urine Clarity Clear Urine pH 6.0 (<5.0-8.0) Urine Specific [place] 1.025 (1.000-1.030) Urine Protein 30 mg/dL (NEG-TRACE) Urine Glucose (UA) Negative mg/dL (NEG) Urine Ketones (Stick) Negative mg/dL (NEG) Urine Blood Moderate (NEG) Urine Nitrite Negative (NEG) Urine Bilirubin Negative (NEG) Urine Urobilinogen Dipstick 1.0 mg/dL (0.2 mg/dL) Urine Leukocyte Esterase Small (NEG) Urine RBC 6-10 /HPF (0-2) Urine WBC 1-4 /HPF (0-4) Urine Squamous Epithelial Cells Few /LPF Urine Amorphous Sediment Present /HPF Urine Bacteria Few /HPF (0-FEW) Urine Mucus Mod /LPF White Blood Count 5.6 x10^3/uL (4.0-11.0) Red Blood Count 4.56 x10^6/uL (4.30-5.70) Hemoglobin 13.6 g/dL (13.0-17.5) Hematocrit 41.5 % (39.0-53.0) Mean Corpuscular Volume 91 fL (79-100) Mean Corpuscular Hemoglobin 30 pg (25-35) Mean Corpuscular Hemoglobin Concent 33 g/dL (31-37) Red Cell Distribution Width 12.7 % (11.5-14.5) Platelet Count 141 x10^3/uL (140-400) Neutrophils (%) (Auto) 75 % (31-73) Lymphocytes (%) (Auto) 19 % (24-48) Monocytes (%) (Auto) 5 % (0-9) Eosinophils (%) (Auto) 0 % (0-3) Basophils (%) (Auto) 0 % (0-3) Neutrophils # (Auto) 4.2 x10^3/uL (1.8-7.7) Lymphocytes # (Auto) 1.0 x10^3/uL (1.0-4.8) Monocytes # (Auto) 0.3 x10^3/uL (0.0-1.1) Eosinophils # (Auto) 0.0 x10^3/uL (0.0-0.7) Basophils # (Auto) 0.0 x10^3/uL (0.0-0.2) Sodium Level 145 mmol/L (136-145) Potassium Level 4.5 mmol/L (3.5-5.1) Chloride Level 112 mmol/L (98-107) Carbon Dioxide Level 24 mmol/L (21-32) Anion Gap 9 (6-14) Blood Urea Nitrogen 22 mg/dL (8-26) Creatinine 1.0 mg/dL (0.7-1.3) Estimated GFR (Cockcroft-Gault) 88.1 BUN/Creatinine Ratio 22 (6-20) Glucose Level 101 mg/dL (70-99) Calcium Level 8.0 mg/dL (8.5-10.1) Phosphorus Level 2.8 mg/dL (2.6-4.7) Magnesium Level 2.5 mg/dL (1.8-2.4) Total Bilirubin 0.6 mg/dL (0.2-1.0) Aspartate Amino Transf (AST/SGOT) 74 U/L (15-37) Alanine Aminotransferase (ALT/SGPT) 58 U/L (16-63) Alkaline Phosphatase 60 U/L (46-116) Total Protein 6.0 g/dL (6.4-8.2) Albumin 2.3 g/dL (3.4-5.0) Albumin/Globulin Ratio 0.6 (1.0-1.7) Review of Systems Constitutional: yes: other (CONFUSED) Physical Exam General Appearance: no apparent distress Skin: warm Respiratory: decreased breath sounds Heart: S1S2 Abdomen: soft, bowel sounds present Neurology: alert, confused, other (mainly nonverbal) Assessment Assessment IMP JESSICA-MILD-NO CKD-IMPROVED WITH CR NOW AT 1.0 HYPERNATREMIA-BETTER ABNORMAL LFT'S EXTRACELLULAR VOLUME DEPLETION DYSPHAGIA HX OF CVA FEVER POSS COVID 19 PROB ASPIRATION PLAN ON ANTIBIOTICS HYDRATION PPN FOR NOW NPO EMPIRIC ANTIBIOTICS WILL FOLLOW D/W ATTENDING HEATHER SPRINGER MD Dec 10, 2019 11:41
--- NOTE | 2019-12-10 12:08 | NUR ---
FANTA following. Spoke with RN and reviewed chart. Pt from [facility], , (fax). Pt not ready for discharge per fever. FANTA called Sisi the DON and Topher the legal office administrator at [phone] and requested a copy of COVID test results done at the facility. FANTA provided fax number ([phone]). FANTA to follow. Addendum: 12/10/19 at 1256 by JENNY JEWELL FANTA obtained COVID results and provided to RN
--- NOTE | 2019-12-10 12:24 | PDOC ---
Infectious Disease Note Subjective: Subjective Patient nonverbal He is comfortable Febrile this morning On room air Discussed with nursing staff ROS: ROS Unable to obtain Vital Signs: Vital Signs Vital Signs Date Time Temp Pulse Resp B/P (MAP) Pulse Ox O2 Delivery O2 Flow Rate FiO2 12/10/19 07:10 77 122/67 12/10/19 07:00 102.3 20 95 Room Air 102.3 12/09/19 07:00 2.0 Physical Exam: PHYSICAL EXAM GENERAL: Alert, awake male, in no acute distress. HEENT: Normocephalic, atraumatic. No thrush. NECK: Supple. LUNGS: Decreased breath sound at the bases, otherwise clear. HEART: S1, S2. ABDOMEN: Soft, nontender, nondistended. EXTREMITIES: Multiple contractures, mainly on the right side. No edema. DERMATOLOGIC: Warm, dry. No generalized rash. PSYCHIATRIC: Calm. Medications: Inpatient Meds: Current Medications Medications (Trade) Dose Ordered Sig/Aung Start Time Stop Time Status Last Admin Dose Admin Acetaminophen (Tylenol Supp) 650 mg PRN Q6HRS PRN 12/07/19 21:30 12/09/19 12:52 650 MG Acetaminophen (Tylenol) 650 mg PRN Q4HRS PRN 12/07/19 17:45 Amino Acids/ Glycerin/ Electrolytes 1,000 ml @ 80 mls/hr [id number] 12/09/19 15:00 12/10/19 03:52 80 MLS/HR Amlodipine Besylate (Norvasc) 10 mg DAILY 12/08/19 09:00 12/08/19 10:59 DC Aspirin (Aspirin Chewable) 81 mg DAILY 12/08/19 09:00 Digoxin (Lanoxin) 500 mcg 1X ONCE 12/08/19 10:15 12/08/19 10:16 DC 12/08/19 10:28 500 MCG Docusate Sodium (Colace) 100 mg BID 12/07/19 21:00 Enoxaparin Sodium (Lovenox 30mg Syringe) 30 mg Q24H 12/07/19 19:00 12/08/19 12:12 DC 12/07/19 22:21 30 MG Hydralazine HCl (Apresoline Inj) 10 mg PRN Q4HRS PRN 12/07/19 17:45 Metoprolol Tartrate (Lopressor Vial) 5 mg Q6HRS 12/08/19 12:00 12/10/19 07:10 5 MG Pantoprazole Sodium (PROTONIX VIAL for IV PUSH) 40 mg DAILY07 12/08/19 07:00 12/10/19 07:10 40 MG Piperacillin Sod/ Tazobactam Sod (Zosyn Per Pharmacy) 1 each PRN DAILY PRN 12/09/19 10:30 Piperacillin Sod/ Tazobactam Sod 3.375 gm/Sodium Chloride 50 ml @ 100 mls/hr Q6HRS 12/09/19 12:00 12/10/19 07:09 100 MLS/HR Potassium Chloride/Dextrose/ Sod Cl 1,000 ml @ 60 mls/hr [id number] 12/07/19 18:30 12/09/19 23:26 60 MLS/HR Sennosides (Senna) 8.6 mg BID 12/07/19 21:00 Sodium Chloride 1,000 ml @ 1,000 mls/hr 1X ONCE 12/07/19 16:30 12/07/19 17:29 DC Vitamin D (Vitamin D3) 1,000 unit WEEKLY 12/14/19 09:00 Labs: Lab Laboratory Tests Test 12/09/19 19:50 12/10/19 03:45 Urine Collection Type Unknown Urine Color Yellow Urine Clarity Clear Urine pH 6.0 (<5.0-8.0) Urine Specific [place] 1.025 (1.000-1.030) Urine Protein 30 mg/dL (NEG-TRACE) Urine Glucose (UA) Negative mg/dL (NEG) Urine Ketones (Stick) Negative mg/dL (NEG) Urine Blood Moderate (NEG) Urine Nitrite Negative (NEG) Urine Bilirubin Negative (NEG) Urine Urobilinogen Dipstick 1.0 mg/dL (0.2 mg/dL) Urine Leukocyte Esterase Small (NEG) Urine RBC 6-10 /HPF (0-2) Urine WBC 1-4 /HPF (0-4) Urine Squamous Epithelial Cells Few /LPF Urine Amorphous Sediment Present /HPF Urine Bacteria Few /HPF (0-FEW) Urine Mucus Mod /LPF White Blood Count 5.6 x10^3/uL (4.0-11.0) Red Blood Count 4.56 x10^6/uL (4.30-5.70) Hemoglobin 13.6 g/dL (13.0-17.5) Hematocrit 41.5 % (39.0-53.0) Mean Corpuscular Volume 91 fL (79-100) Mean Corpuscular Hemoglobin 30 pg (25-35) Mean Corpuscular Hemoglobin Concent 33 g/dL (31-37) Red Cell Distribution Width 12.7 % (11.5-14.5) Platelet Count 141 x10^3/uL (140-400) Neutrophils (%) (Auto) 75 % (31-73) Lymphocytes (%) (Auto) 19 % (24-48) Monocytes (%) (Auto) 5 % (0-9) Eosinophils (%) (Auto) 0 % (0-3) Basophils (%) (Auto) 0 % (0-3) Neutrophils # (Auto) 4.2 x10^3/uL (1.8-7.7) Lymphocytes # (Auto) 1.0 x10^3/uL (1.0-4.8) Monocytes # (Auto) 0.3 x10^3/uL (0.0-1.1) Eosinophils # (Auto) 0.0 x10^3/uL (0.0-0.7) Basophils # (Auto) 0.0 x10^3/uL (0.0-0.2) Sodium Level 145 mmol/L (136-145) Potassium Level 4.5 mmol/L (3.5-5.1) Chloride Level 112 mmol/L (98-107) Carbon Dioxide Level 24 mmol/L (21-32) Anion Gap 9 (6-14) Blood Urea Nitrogen 22 mg/dL (8-26) Creatinine 1.0 mg/dL (0.7-1.3) Estimated GFR (Cockcroft-Gault) 88.1 BUN/Creatinine Ratio 22 (6-20) Glucose Level 101 mg/dL (70-99) Calcium Level 8.0 mg/dL (8.5-10.1) Phosphorus Level 2.8 mg/dL (2.6-4.7) Magnesium Level 2.5 mg/dL (1.8-2.4) Total Bilirubin 0.6 mg/dL (0.2-1.0) Aspartate Amino Transf (AST/SGOT) 74 U/L (15-37) Alanine Aminotransferase (ALT/SGPT) 58 U/L (16-63) Alkaline Phosphatase 60 U/L (46-116) Total Protein 6.0 g/dL (6.4-8.2) Albumin 2.3 g/dL (3.4-5.0) Albumin/Globulin Ratio 0.6 (1.0-1.7) Objective: Assessment: 1. Fever. Source likely respiratory infection 2. Possible aspiration. 3. History of cerebrovascular accident. MRI Brain neg for acute process 4. Hypernatremia. 5. Dehydration. 6. COVID suspect 7. Abnormal liver function tests. 8. Protein-calorie malnutrition. Plan: Plan of Care Continue Zosyn. Blood cultures done COVID-19 pending Awaiting swallow eval Maintains aspiration precaution Follow-up labs and cultures Contain isolation per COVID 19 protocol Continue supportive care. Discussed with nursing staff CARMEN LARA MD Dec 10, 2019 12:24
--- NOTE | 2019-12-10 12:53 | PDOC ---
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 No acute stroke Possible subdural hematoma on CT, not present on MRI COVID positive, repeat COVID testing pending Possible aspiration pneumonia, respiratory failure, atrial fibrillation new onset, dehydration (hypernatremia), hypokalemia, hypertension, dysphagia, elevated LFTs, fever Plan No additional neurological tests needed Rehabilitation modalities including swallowing evaluation Treat medical problems. Neurology will follow at intervals Objective Vital Signs Date Time Temp Pulse Resp B/P (MAP) Pulse Ox O2 Delivery O2 Flow Rate FiO2 12/10/19 07:10 77 122/67 12/10/19 07:00 102.3 20 95 Room Air 102.3 12/09/19 07:00 2.0 Intake and Output 12/10/19 07:00 Intake Total 0 ml Output Total 650 ml Balance -650 ml Intake Oral 0 ml Output Urine Total 650 ml # Voids 1 # Bowel Movements 1 PHYSICAL EXAM Brief exam from a distance, alerts to voice, turns toward observer. Review of Relevant I have reviewed the following items gerard (where applicable) has been applied. Labs Laboratory Tests Test 12/09/19 03:50 12/09/19 19:50 12/10/19 03:45 White Blood Count 5.2 x10^3/uL (4.0-11.0) 5.6 x10^3/uL (4.0-11.0) Red Blood Count 4.58 x10^6/uL (4.30-5.70) 4.56 x10^6/uL (4.30-5.70) Hemoglobin 13.6 g/dL (13.0-17.5) 13.6 g/dL (13.0-17.5) Hematocrit 41.5 % (39.0-53.0) 41.5 % (39.0-53.0) Mean Corpuscular Volume 91 fL (79-100) 91 fL (79-100) Mean Corpuscular Hemoglobin 30 pg (25-35) 30 pg (25-35) Mean Corpuscular Hemoglobin Concent 33 g/dL (31-37) 33 g/dL (31-37) Red Cell Distribution Width 12.7 % (11.5-14.5) 12.7 % (11.5-14.5) Platelet Count 142 x10^3/uL (140-400) 141 x10^3/uL (140-400) Neutrophils (%) (Auto) 68 % (31-73) 75 % (31-73) Lymphocytes (%) (Auto) 24 % (24-48) 19 % (24-48) Monocytes (%) (Auto) 8 % (0-9) 5 % (0-9) Eosinophils (%) (Auto) 0 % (0-3) 0 % (0-3) Basophils (%) (Auto) 0 % (0-3) 0 % (0-3) Neutrophils # (Auto) 3.5 x10^3/uL (1.8-7.7) 4.2 x10^3/uL (1.8-7.7) Lymphocytes # (Auto) 1.2 x10^3/uL (1.0-4.8) 1.0 x10^3/uL (1.0-4.8) Monocytes # (Auto) 0.4 x10^3/uL (0.0-1.1) 0.3 x10^3/uL (0.0-1.1) Eosinophils # (Auto) 0.0 x10^3/uL (0.0-0.7) 0.0 x10^3/uL (0.0-0.7) Basophils # (Auto) 0.0 x10^3/uL (0.0-0.2) 0.0 x10^3/uL (0.0-0.2) Sodium Level 151 mmol/L (136-145) 145 mmol/L (136-145) Potassium Level 4.1 mmol/L (3.5-5.1) 4.5 mmol/L (3.5-5.1) Chloride Level 115 mmol/L (98-107) 112 mmol/L (98-107) Carbon Dioxide Level 27 mmol/L (21-32) 24 mmol/L (21-32) Anion Gap 9 (6-14) 9 (6-14) Blood Urea Nitrogen 27 mg/dL (8-26) 22 mg/dL (8-26) Creatinine 1.1 mg/dL (0.7-1.3) 1.0 mg/dL (0.7-1.3) Estimated GFR (Cockcroft-Gault) 79.0 88.1 BUN/Creatinine Ratio 25 (6-20) 22 (6-20) Glucose Level 120 mg/dL (70-99) 101 mg/dL (70-99) Calcium Level 8.1 mg/dL (8.5-10.1) 8.0 mg/dL (8.5-10.1) Total Bilirubin 0.6 mg/dL (0.2-1.0) 0.6 mg/dL (0.2-1.0) Aspartate Amino Transf (AST/SGOT) 79 U/L (15-37) 74 U/L (15-37) Alanine Aminotransferase (ALT/SGPT) 59 U/L (16-63) 58 U/L (16-63) Alkaline Phosphatase 55 U/L (46-116) 60 U/L (46-116) Total Protein 6.6 g/dL (6.4-8.2) 6.0 g/dL (6.4-8.2) Albumin 2.5 g/dL (3.4-5.0) 2.3 g/dL (3.4-5.0) Albumin/Globulin Ratio 0.6 (1.0-1.7) 0.6 (1.0-1.7) Urine Collection Type Unknown Urine Color Yellow Urine Clarity Clear Urine pH 6.0 (<5.0-8.0) Urine Specific [place] 1.025 (1.000-1.030) Urine Protein 30 mg/dL (NEG-TRACE) Urine Glucose (UA) Negative mg/dL (NEG) Urine Ketones (Stick) Negative mg/dL (NEG) Urine Blood Moderate (NEG) Urine Nitrite Negative (NEG) Urine Bilirubin Negative (NEG) Urine Urobilinogen Dipstick 1.0 mg/dL (0.2 mg/dL) Urine Leukocyte Esterase Small (NEG) Urine RBC 6-10 /HPF (0-2) Urine WBC 1-4 /HPF (0-4) Urine Squamous Epithelial Cells Few /LPF Urine Amorphous Sediment Present /HPF Urine Bacteria Few /HPF (0-FEW) Urine Mucus Mod /LPF Phosphorus Level 2.8 mg/dL (2.6-4.7) Magnesium Level 2.5 mg/dL (1.8-2.4) Laboratory Tests Test 12/09/19 19:50 12/10/19 03:45 Urine Collection Type Unknown Urine Color Yellow Urine Clarity Clear Urine pH 6.0 (<5.0-8.0) Urine Specific [place] 1.025 (1.000-1.030) Urine Protein 30 mg/dL (NEG-TRACE) Urine Glucose (UA) Negative mg/dL (NEG) Urine Ketones (Stick) Negative mg/dL (NEG) Urine Blood Moderate (NEG) Urine Nitrite Negative (NEG) Urine Bilirubin Negative (NEG) Urine Urobilinogen Dipstick 1.0 mg/dL (0.2 mg/dL) Urine Leukocyte Esterase Small (NEG) Urine RBC 6-10 /HPF (0-2) Urine WBC 1-4 /HPF (0-4) Urine Squamous Epithelial Cells Few /LPF Urine Amorphous Sediment Present /HPF Urine Bacteria Few /HPF (0-FEW) Urine Mucus Mod /LPF White Blood Count 5.6 x10^3/uL (4.0-11.0) Red Blood Count 4.56 x10^6/uL (4.30-5.70) Hemoglobin 13.6 g/dL (13.0-17.5) Hematocrit 41.5 % (39.0-53.0) Mean Corpuscular Volume 91 fL (79-100) Mean Corpuscular Hemoglobin 30 pg (25-35) Mean Corpuscular Hemoglobin Concent 33 g/dL (31-37) Red Cell Distribution Width 12.7 % (11.5-14.5) Platelet Count 141 x10^3/uL (140-400) Neutrophils (%) (Auto) 75 % (31-73) Lymphocytes (%) (Auto) 19 % (24-48) Monocytes (%) (Auto) 5 % (0-9) Eosinophils (%) (Auto) 0 % (0-3) Basophils (%) (Auto) 0 % (0-3) Neutrophils # (Auto) 4.2 x10^3/uL (1.8-7.7) Lymphocytes # (Auto) 1.0 x10^3/uL (1.0-4.8) Monocytes # (Auto) 0.3 x10^3/uL (0.0-1.1) Eosinophils # (Auto) 0.0 x10^3/uL (0.0-0.7) Basophils # (Auto) 0.0 x10^3/uL (0.0-0.2) Sodium Level 145 mmol/L (136-145) Potassium Level 4.5 mmol/L (3.5-5.1) Chloride Level 112 mmol/L (98-107) Carbon Dioxide Level 24 mmol/L (21-32) Anion Gap 9 (6-14) Blood Urea Nitrogen 22 mg/dL (8-26) Creatinine 1.0 mg/dL (0.7-1.3) Estimated GFR (Cockcroft-Gault) 88.1 BUN/Creatinine Ratio 22 (6-20) Glucose Level 101 mg/dL (70-99) Calcium Level 8.0 mg/dL (8.5-10.1) Phosphorus Level 2.8 mg/dL (2.6-4.7) Magnesium Level 2.5 mg/dL (1.8-2.4) Total Bilirubin 0.6 mg/dL (0.2-1.0) Aspartate Amino Transf (AST/SGOT) 74 U/L (15-37) Alanine Aminotransferase (ALT/SGPT) 58 U/L (16-63) Alkaline Phosphatase 60 U/L (46-116) Total Protein 6.0 g/dL (6.4-8.2) Albumin 2.3 g/dL (3.4-5.0) Albumin/Globulin Ratio 0.6 (1.0-1.7) Medications Current Medications Sodium Chloride 1,000 ml @ 1,000 mls/hr 1X ONCE IV ; Start 12/07/19 at 16:30; Stop 12/07/19 at 17:29; Status DC Acetaminophen (Tylenol) 650 mg PRN Q4HRS PRN PO FEVER > 100.3'F; Start 12/07/19 at 17:45 Amlodipine Besylate (Norvasc) 10 mg DAILY PO ; Start 12/08/19 at 09:00; Stop 12/08/19 at 10:59; Status DC Aspirin (Aspirin Chewable) 81 mg DAILY PO ; Start 12/08/19 at 09:00 Vitamin D (Vitamin D3) 1,000 unit WEEKLY PO ; Start 12/14/19 at 09:00 Docusate Sodium (Colace) 100 mg BID PO ; Start 12/07/19 at 21:00 Sennosides (Senna) 8.6 mg BID PO ; Start 12/07/19 at 21:00 Hydralazine HCl (Apresoline Inj) 10 mg PRN Q4HRS PRN IVP FOR SBP > 160; Start 12/07/19 at 17:45 Potassium Chloride/Dextrose/ Sod Cl 1,000 ml @ 60 mls/hr [id number] IV Last administered on 12/09/19at 23:26; Start 12/07/19 at 18:30 Enoxaparin Sodium (Lovenox 30mg Syringe) 30 mg Q24H SQ Last administered on 12/07/19at 22:21; Start 12/07/19 at 19:00; Stop 12/08/19 at 12:12; Status DC Pantoprazole Sodium (PROTONIX VIAL for IV PUSH) 40 mg DAILY07 IVP Last administered on 12/10/19at 07:10; Start 12/08/19 at 07:00 Metoprolol Tartrate (Lopressor Vial) 5 mg QIDPRN PRN IVP TACHYCARDIA Last administered on 12/07/19at 22:57; Start 12/07/19 at 19:45; Stop 12/08/19 at 11:00; Status DC Acetaminophen (Tylenol Supp) [address] MILD PAIN / TEMP > 100.3'F Last administered on 12/09/19at 12:52; Start 12/07/19 at 21:30 Metoprolol Tartrate (Lopressor Vial) 10 mg PRN Q6HRS PRN IVP HYPERTENSION; Sta rt 12/07/19 at 22:45; Stop 12/08/19 at 11:00; Status DC Digoxin (Lanoxin) 500 mcg 1X ONCE IV Last administered on 12/08/19at 10:28; Start 12/08/19 at 10:15; Stop 12/08/19 at 10:16; Status DC Metoprolol Tartrate (Lopressor Vial) 5 mg Q6HRS IVP Last administered on 12/10/19at 07:10; Start 12/08/19 at 12:00 Piperacillin Sod/ Tazobactam Sod (Zosyn Per Pharmacy) 1 each PRN DAILY PRN MC SEE COMMENTS; Start 12/09/19 at 10:30 Piperacillin Sod/ Tazobactam Sod 3.375 gm/Sodium Chloride 50 ml @ 100 mls/hr Q6HRS IV Last administered on 12/10/19at 07:09; Start 12/09/19 at 12:00 Amino Acids/ Glycerin/ Electrolytes 1,000 ml @ 80 mls/hr [id number] IV Last administered on 12/10/19at 03:52; Start 12/09/19 at 15:00 Active Scripts Active Reported Vitamin D3 (Cholecalciferol (Vitamin D3)) 1,000 Unit Tablet 1 Tab PO WEEKLY Senokot (Sennosides) 8.6 Mg Tablet 1 Tab PO BID Norvasc (Amlodipine Besylate) 10 Mg Tablet 10 Mg PO DAILY Metoprolol Tartrate 25 Mg Tablet 0.5 Tab PO BID Hydrochlorothiazide Capsule (Hydrochlorothiazide) 12.5 Mg Capsule 12.5 Mg PO DAILY Docusate Sodium 100 Mg Capsule 1 Cap PO BID Aspirin 81 Mg Tab.chew 1 Tab PO DAILY Acetaminophen 325 Mg Tablet 650 Mg PO PRN Q4HRS PRN Vitals/I & O Vital Sign - Last 24 Hours 12/09/19 12/09/19 12/09/19 12/09/19 15:00 15:59 18:00 18:08 Temp 99.4 98.4 99.4 98.4 Pulse 87 70 87 Resp 26 B/P (MAP) 166/78 (107) 133/62 (85) 151/70 (97) 151/70 Pulse Ox 99 96 97 O2 Delivery Room Air Room Air Room Air 12/09/19 12/09/19 12/09/19 12/10/19 20:00 23:00 23:36 03:00 Temp 98.1 98.1 98.1 98.1 Pulse 95 87 77 Resp 24 22 B/P (MAP) 148/80 (102) 151/70 122/67 (85) Pulse Ox 94 95 O2 Delivery Room Air Room Air Room Air 12/10/19 12/10/19 07:00 07:10 Temp 102.3 102.3 Pulse 95 77 Resp 20 B/P (MAP) 149/69 (95) 122/67 Pulse Ox 95 O2 Delivery Room Air Intake and Output 12/09/19 12/09/19 12/10/19 15:00 23:00 07:00 Intake Total 0 ml 0 ml Output Total 650 ml Balance 0 ml -650 ml Justicifation of Admission Dx: Justifications for Admission: Justification of Admission Dx: Yes Stroke - Ischemic: Stroke-Ischemic AAYUSH MOREJON MD Dec 10, 2019 12:53
[2019-12-10 15:00] VITALS: BP 158/107
--- NOTE | 2019-12-10 15:32 | NUR ---
Wound Care: spoke with RYAN Aldana whom pictured sacrum pressure ulcer. Wound care viewed picture and recommendations to continue with Calazime cream. Patient is on a P-500 bed at this time and turn Q2. Wound care will reassess as needed.
[2019-12-10] MEDS: POTASSIUM CL 20MEQ D5-0.45NACL 1,000 ML IV SCH (16:54)
[2019-12-10 19:21] VITALS: BP 160/83
[2019-12-10 23:52] VITALS: BP 139/63
[2019-12-11 03:31] VITALS: BP 130/82
[2019-12-11 04:29] LABS: BASO % 1 % (0-3); EOS # 0.1 x10^3/uL (0.0-0.7); EOS % 1 % (0-3); HEMATOCRIT 40.2 % (39.0-53.0); HEMOGLOBIN 13.3 g/dL (13.0-17.5); LYMPH # 1.4 x10^3/uL (1.0-4.8); LYMPH % 23 % (24-48); MEAN CORPUSCULAR HEMOGLOBIN 30 pg (25-35); MEAN CORPUSCULAR HGB CONC 33 g/dL (31-37); MEAN CORPUSCULAR VOLUME 90 fL (79-100); MONO # 0.3 x10^3/uL (0.0-1.1); MONO % 5 % (0-9); NEUT # 4.5 x10^3/uL (1.8-7.7); NEUT % 71 % (31-73); PLATELET COUNT 136 x10^3/uL (140-400); RED BLOOD COUNT 4.46 x10^6/uL (4.30-5.70); RED CELL DISTRIBUTION WIDTH 12.9 % (11.5-14.5); WHITE BLOOD COUNT 6.4 x10^3/uL (4.0-11.0)
[2019-12-11] MEDS: PIPERACILLIN/TAZOBACTAM 3.375 GM in IV NORMAL SALINE 50ML 50 ML IV SCH ×4 (04:40→23:36)
[2019-12-11] MEDS: POTASSIUM CL 20MEQ D5-0.45NACL 1,000 ML IV SCH ×2 (04:41→21:53)
[2019-12-11] MEDS: METOPROLOL TARTRATE 5 MG/5 ML VIAL. IVP SCH ×4 (04:41→23:36)
[2019-12-11] MEDS: AMINO AC 3%/ELECTROLYTE/GLYCER 1,000 ML IV SCH ×2 (04:41→21:35)
[2019-12-11] MEDS: PANTOPRAZOLE IV PUSH 40 MG VIAL. IVP SCH (04:42)
[2019-12-11 04:54] LABS: ALBUMIN 1.9 g/dL (3.4-5.0); ALBUMIN/GLOBULIN RATIO 0.5 (1.0-1.7); CALCIUM 7.9 mg/dL (8.5-10.1); GFR 88.1; POTASSIUM 3.7 mmol/L (3.5-5.1); TOTAL BILIRUBIN 0.6 mg/dL (0.2-1.0); TOTAL PROTEIN 6.1 g/dL (6.4-8.2)
[2019-12-11] MEDS: ACETAMINOPHEN 650 MG SUPP.RECT. PR PRN (07:00)
[2019-12-11] MEDS: ASPIRIN CHEWABLE 81 MG TABLET. PO SCH (07:53)
[2019-12-11] MEDS: SENNOSIDES 8.6 MG TABLET PO SCH ×2 (07:53→21:00)
[2019-12-11] MEDS: DOCUSATE SODIUM 100 MG CAPSULE. PO SCH ×2 (07:53→21:00)
[2019-12-11 07:54] VITALS: BP 121/99
--- NOTE | 2019-12-11 08:47 | RAD ---
EXAM: PORTABLE CHEST 1V INDICATION: Reason: pneumonia / Spl. Instructions: / History: . TECHNIQUE: Single view COMPARISON: 12/07/2019 FINDINGS: The heart size is normal. The great vessels appear unremarkable. There is no hilar or mediastinal mass. Lungs are slightly lower in volume. Reticular densities in the right lower lobe and in the medial left lung base are subtly present. There is no pleural effusion or pneumothorax. There are no significant osseous abnormalities. IMPRESSION: Reticular densities of the lung bases with low lung volumes could reflect atypical pneumonia in the appropriate clinical context. No confluent, lobar consolidation. Electronically signed by: Sanaz Solis MD (12/11/2019 8:43 AM) [id number]
--- NOTE | 2019-12-11 10:07 | PDOC ---
IM PROGRESS NOTES- Subjective Subjective The patient speech is not clear and unable to do systems review. Patient is much more alert and more responsive Objective Vitals/I&O Vital Signs Date Time Temp Pulse Resp B/P (MAP) Pulse Ox O2 Delivery O2 Flow Rate FiO2 12/11/19 08:00 Room Air 12/11/19 07:54 100.8 93 16 121/99 (106) 95 100.8 12/10/19 20:12 2.0 I & O 12/10/19 12/10/19 12/11/19 15:00 23:00 07:00 Intake Total 1000 ml 0 ml 0 ml Output Total 650 ml 450 ml Balance 350 ml 0 ml -450 ml Physical Exam Physical Exam GENERAL: The patient is an elderly male who is much more alert and more respon sive today, appears to be chronically and acutely ill and in mild distress. He is unable to communicate and has been coughing while trying to talk. Throat, unable to examine as the patient is coughing LUNGS: Decreased breath sounds bilaterally. Occasional rhonchi CARDIOVASCULAR: S1, S2 regular. ABDOMEN: Soft, nontender, no guarding, no rigidity. Bowel sounds present. EXTREMITIES: No edema. The patient has right-sided weakness with contracture. He also has a facial droop on the right side, but I am not sure if it is more pronounced than before as I have not seen him for some time. CENTRAL NERVOUS SYSTEM: Patient is much more alert,, speech is not clear. He has weakness of both upper extremities. He has some weakness of the lower extremities but able to move them. Unable to assess properly as patient is unable to cooperate Labs Laboratory Tests Test 12/11/19 03:30 White Blood Count 6.4 x10^3/uL (4.0-11.0) Red Blood Count 4.46 x10^6/uL (4.30-5.70) Hemoglobin 13.3 g/dL (13.0-17.5) Hematocrit 40.2 % (39.0-53.0) Mean Corpuscular Volume 90 fL (79-100) Mean Corpuscular Hemoglobin 30 pg (25-35) Mean Corpuscular Hemoglobin Concent 33 g/dL (31-37) Red Cell Distribution Width 12.9 % (11.5-14.5) Platelet Count 136 x10^3/uL (140-400) L Neutrophils (%) (Auto) 71 % (31-73) Lymphocytes (%) (Auto) 23 % (24-48) L Monocytes (%) (Auto) 5 % (0-9) Eosinophils (%) (Auto) 1 % (0-3) Basophils (%) (Auto) 1 % (0-3) Neutrophils # (Auto) 4.5 x10^3/uL (1.8-7.7) Lymphocytes # (Auto) 1.4 x10^3/uL (1.0-4.8) Monocytes # (Auto) 0.3 x10^3/uL (0.0-1.1) Eosinophils # (Auto) 0.1 x10^3/uL (0.0-0.7) Basophils # (Auto) 0.0 x10^3/uL (0.0-0.2) Sodium Level 141 mmol/L (136-145) Potassium Level 3.7 mmol/L (3.5-5.1) Chloride Level 108 mmol/L (98-107) H Carbon Dioxide Level 25 mmol/L (21-32) Anion Gap 8 (6-14) Blood Urea Nitrogen 20 mg/dL (8-26) Creatinine 1.0 mg/dL (0.7-1.3) Estimated GFR (Cockcroft-Gault) 88.1 BUN/Creatinine Ratio 20 (6-20) Glucose Level 101 mg/dL (70-99) H Calcium Level 7.9 mg/dL (8.5-10.1) L Total Bilirubin 0.6 mg/dL (0.2-1.0) Aspartate Amino Transferase (AST) 66 U/L (15-37) H Alanine Aminotransferase (ALT) 44 U/L (16-63) Alkaline Phosphatase 53 U/L (46-116) Total Protein 6.1 g/dL (6.4-8.2) L Albumin 1.9 g/dL (3.4-5.0) L Albumin/Globulin Ratio 0.5 (1.0-1.7) L Laboratory Tests 12/11/19 03:30 Laboratory Tests 12/11/19 03:30 Assessment Assessment 1. Acute cerebrovascular accident. 2. Hypertension, not controlled. 3. Dysphagia. 4. Gastroesophageal reflux disease. 5. Dehydration. 6. Elevated LFTs. 7. Electrolyte imbalance with hypernatremia and hypokalemia. 8. Physical deconditioning. 9. Low-grade fever. 10. Possible aspiration bronchitis. 11. Acute respiratory failure. Possible COVID-19 infection PLAN: 1. Start IV D5 half normal saline with KCl 20 mEq in each liter to run at 125 mL per hour. 2. Dysphagia. We will keep the patient n.p.o. and have speech therapy evaluation. 3. Acute cerebrovascular accident. Consult Dr. Hood. Consult PT, OT, speech therapy, and also consult Dr. Jade for rehabilitation evaluation and management. MRI has been ordered . No evidence of subdural hematoma on MRI MRI Impression: 1. No acute infarct is identified. 2. 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 3. Scattered T2 and FLAIR hyperintense signal of the supratentorial parenchyma is nonspecific, more commonly due to chronic ischemic disease in a patient this age. There are also old lacunar infarcts as stated. 4. Dehydration. Start IV fluids. No improvement noted so will increase IV fluids.Hypernatremia improving. Sodium is 145. Dr. Camacho has been consulted. Patient is now on Clinimix. 5. Hypertension. Start IV hydralazine. We will renew the half-way medications, but will not start them yet as the patient is n.p.o. 6. Elevated LFTs. Recheck labs in a.m. Prognosis of this patient is extremely poor. Await COVID-19 test report that was done by the facility, i.e., the [facility] where he lives. The staff called the [facility]-way and apparently the patient was on the COVID-19 unit but not sure about the report. Order COVID-19 PCR test here. Not done yesterday. Staff will call OK again. Reorder if not done.D/w staff. COVID test is positive 7. Atrial fibrillation-IV digoxin was given by the cardiovascular physician assistant. Started on IV Lopressor on schedule. Patient remains in sinus rhythm with few PVCs 8. Acute respiratory failure-continue oxygen by nasal cannula. Pulmonary consult.Cough ? aspiration. start Zosyn. consult ID. 9. Fever possibly due to aspiration. Continue IV Zosyn. Order blood cultures x2. Urinalysis reviewed 10. Dysphagia-still needs to be n.p.o. but will evaluate with the help of speech therapy again tomorrow. 11. COVID positive infection. Discussed with Dr. Chatman Prognosis of this patient is very poor For details, please refer to the orders. Plan Plan For more details regarding further plans, please refer to the orders. Justicifation of Admission Dx: Justifications for Admission: Justification of Admission Dx: Yes Stroke - Ischemic: Stroke-Ischemic Nutrition Consultation Dietary Evaluation: Recommendations by RD: Dietary education by RD, PPN/TPN Comments: REC PPN until pt is able to complete [employer]PER[employer] eval REC diet per [employer] SUPER[employer]OR w/ supplements when able REC mvi and vit c per wound protocal Expected Outcomes/Goals: diet advancement vs nutrition support Interpretation of weight loss: >10% in 6 months Malnutrition Findings: Food and Nutrition Intake (Sev: <50% est energy req 5days Weight Status: Underweight JEROME SHELL MD Dec 11, 2019 10:07
[2019-12-11 11:00] VITALS: BP 140/68
--- NOTE | 2019-12-11 11:05 | PDOC ---
Infectious Disease Note Subjective: Subjective Patient appears comfortable Fever pattern improved On room air Discussed with nursing staff Vital Signs: Vital Signs Vital Signs Date Time Temp Pulse Resp B/P (MAP) Pulse Ox O2 Delivery O2 Flow Rate FiO2 12/11/19 08:00 Room Air 12/11/19 07:54 100.8 93 16 121/99 (106) 95 100.8 12/10/19 20:12 2.0 Physical Exam: PHYSICAL EXAM GENERAL: Alert, awake male, in no acute distress. Looks better HEENT: Normocephalic, atraumatic. No thrush. NECK: Supple. LUNGS: Decreased breath sound at the bases, otherwise clear. HEART: S1, S2. ABDOMEN: Soft, nontender, nondistended. EXTREMITIES: Multiple contractures, mainly on the right side. No edema. DERMATOLOGIC: Warm, dry. No generalized rash. PSYCHIATRIC: Calm. Medications: Inpatient Meds: Current Medications Medications (Trade) Dose Ordered Sig/Aung Start Time Stop Time Status Last Admin Dose Admin Acetaminophen (Tylenol Supp) 650 mg PRN Q6HRS PRN 12/07/19 21:30 12/11/19 07:00 650 MG Acetaminophen (Tylenol) 650 mg PRN Q4HRS PRN 12/07/19 17:45 Amino Acids/ Glycerin/ Electrolytes 1,000 ml @ 80 mls/hr [id number] 12/09/19 15:00 12/11/19 04:41 80 MLS/HR Amlodipine Besylate (Norvasc) 10 mg DAILY 12/08/19 09:00 12/08/19 10:59 DC Aspirin (Aspirin Chewable) 81 mg DAILY 12/08/19 09:00 Digoxin (Lanoxin) 500 mcg 1X ONCE 12/08/19 10:15 12/08/19 10:16 DC 12/08/19 10:28 500 MCG Docusate Sodium (Colace) 100 mg BID 12/07/19 21:00 Enoxaparin Sodium (Lovenox 30mg Syringe) 30 mg Q24H 12/07/19 19:00 12/08/19 12:12 DC 12/07/19 22:21 30 MG Hydralazine HCl (Apresoline Inj) 10 mg PRN Q4HRS PRN 12/07/19 17:45 Metoprolol Tartrate (Lopressor Vial) 5 mg Q6HRS 12/08/19 12:00 12/11/19 04:41 5 MG Pantoprazole Sodium (PROTONIX VIAL for IV PUSH) 40 mg DAILY07 12/08/19 07:00 12/11/19 04:42 40 MG Piperacillin Sod/ Tazobactam Sod (Zosyn Per Pharmacy) 1 each PRN DAILY PRN 12/09/19 10:30 Piperacillin Sod/ Tazobactam Sod 3.375 gm/Sodium Chloride 50 ml @ 100 mls/hr Q6HRS 12/09/19 12:00 12/11/19 04:40 100 MLS/HR Potassium Chloride/Dextrose/ Sod Cl 1,000 ml @ 60 mls/hr [id number] 12/07/19 18:30 12/11/19 04:41 60 MLS/HR Sennosides (Senna) 8.6 mg BID 12/07/19 21:00 Sodium Chloride 1,000 ml @ 1,000 mls/hr 1X ONCE 12/07/19 16:30 12/07/19 17:29 DC Vitamin D (Vitamin D3) 1,000 unit WEEKLY 12/14/19 09:00 Labs: Lab Laboratory Tests Test 12/11/19 03:30 White Blood Count 6.4 x10^3/uL (4.0-11.0) Red Blood Count 4.46 x10^6/uL (4.30-5.70) Hemoglobin 13.3 g/dL (13.0-17.5) Hematocrit 40.2 % (39.0-53.0) Mean Corpuscular Volume 90 fL (79-100) Mean Corpuscular Hemoglobin 30 pg (25-35) Mean Corpuscular Hemoglobin Concent 33 g/dL (31-37) Red Cell Distribution Width 12.9 % (11.5-14.5) Platelet Count 136 x10^3/uL (140-400) Neutrophils (%) (Auto) 71 % (31-73) Lymphocytes (%) (Auto) 23 % (24-48) Monocytes (%) (Auto) 5 % (0-9) Eosinophils (%) (Auto) 1 % (0-3) Basophils (%) (Auto) 1 % (0-3) Neutrophils # (Auto) 4.5 x10^3/uL (1.8-7.7) Lymphocytes # (Auto) 1.4 x10^3/uL (1.0-4.8) Monocytes # (Auto) 0.3 x10^3/uL (0.0-1.1) Eosinophils # (Auto) 0.1 x10^3/uL (0.0-0.7) Basophils # (Auto) 0.0 x10^3/uL (0.0-0.2) Sodium Level 141 mmol/L (136-145) Potassium Level 3.7 mmol/L (3.5-5.1) Chloride Level 108 mmol/L (98-107) Carbon Dioxide Level 25 mmol/L (21-32) Anion Gap 8 (6-14) Blood Urea Nitrogen 20 mg/dL (8-26) Creatinine 1.0 mg/dL (0.7-1.3) Estimated GFR (Cockcroft-Gault) 88.1 BUN/Creatinine Ratio 20 (6-20) Glucose Level 101 mg/dL (70-99) Calcium Level 7.9 mg/dL (8.5-10.1) Total Bilirubin 0.6 mg/dL (0.2-1.0) Aspartate Amino Transf (AST/SGOT) 66 U/L (15-37) Alanine Aminotransferase (ALT/SGPT) 44 U/L (16-63) Alkaline Phosphatase 53 U/L (46-116) Total Protein 6.1 g/dL (6.4-8.2) Albumin 1.9 g/dL (3.4-5.0) Albumin/Globulin Ratio 0.5 (1.0-1.7) Objective: Assessment: 1. COVID 19 Infection 2. Fever. 3. Possible aspiration. 4. History of cerebrovascular accident. MRI Brain neg for acute process 5 Hypernatremia. 6 Dehydration. 7. Abnormal liver function tests. 8. Protein-calorie malnutrition. 9. [place] resident Plan: Plan of Care Continue supportive care continue Zosyn. Maintains aspiration precaution Follow-up labs and cultures Contain isolation for COVID 19 Discussed with nursing staff CARMEN LARA MD Dec 11, 2019 11:05
--- NOTE | 2019-12-11 11:35 | PDOC ---
Renal-Progress Notes Subjective Notes Notes CONFUSED History of Present Illness Hx of present illness NO CHANGE Vitals Vitals Vital Signs Date Time Temp Pulse Resp B/P (MAP) Pulse Ox O2 Delivery O2 Flow Rate FiO2 12/11/19 08:00 Room Air 12/11/19 07:54 100.8 93 16 121/99 (106) 95 100.8 12/10/19 20:12 2.0 Weight Weight [ ] I.O. Intake and Output Intake and Output 12/11/19 07:00 Intake Total 1000 ml Output Total 1100 ml Balance -100 ml Intake Oral 0 ml Blood Product IV Normal Saline Flush 1000 ml Output Urine Total 1100 ml # Voids 1 # Bowel Movements 1 Labs Labs Laboratory Tests Test 12/11/19 03:30 White Blood Count 6.4 x10^3/uL (4.0-11.0) Red Blood Count 4.46 x10^6/uL (4.30-5.70) Hemoglobin 13.3 g/dL (13.0-17.5) Hematocrit 40.2 % (39.0-53.0) Mean Corpuscular Volume 90 fL (79-100) Mean Corpuscular Hemoglobin 30 pg (25-35) Mean Corpuscular Hemoglobin Concent 33 g/dL (31-37) Red Cell Distribution Width 12.9 % (11.5-14.5) Platelet Count 136 x10^3/uL (140-400) Neutrophils (%) (Auto) 71 % (31-73) Lymphocytes (%) (Auto) 23 % (24-48) Monocytes (%) (Auto) 5 % (0-9) Eosinophils (%) (Auto) 1 % (0-3) Basophils (%) (Auto) 1 % (0-3) Neutrophils # (Auto) 4.5 x10^3/uL (1.8-7.7) Lymphocytes # (Auto) 1.4 x10^3/uL (1.0-4.8) Monocytes # (Auto) 0.3 x10^3/uL (0.0-1.1) Eosinophils # (Auto) 0.1 x10^3/uL (0.0-0.7) Basophils # (Auto) 0.0 x10^3/uL (0.0-0.2) Sodium Level 141 mmol/L (136-145) Potassium Level 3.7 mmol/L (3.5-5.1) Chloride Level 108 mmol/L (98-107) Carbon Dioxide Level 25 mmol/L (21-32) Anion Gap 8 (6-14) Blood Urea Nitrogen 20 mg/dL (8-26) Creatinine 1.0 mg/dL (0.7-1.3) Estimated GFR (Cockcroft-Gault) 88.1 BUN/Creatinine Ratio 20 (6-20) Glucose Level 101 mg/dL (70-99) Calcium Level 7.9 mg/dL (8.5-10.1) Total Bilirubin 0.6 mg/dL (0.2-1.0) Aspartate Amino Transf (AST/SGOT) 66 U/L (15-37) Alanine Aminotransferase (ALT/SGPT) 44 U/L (16-63) Alkaline Phosphatase 53 U/L (46-116) Total Protein 6.1 g/dL (6.4-8.2) Albumin 1.9 g/dL (3.4-5.0) Albumin/Globulin Ratio 0.5 (1.0-1.7) Micro Micro Microbiology 12/10/19 Blood Culture - Preliminary, Resulted NO GROWTH AFTER 1 DAY Review of Systems Constitutional: yes: other (CONFUSED) Physical Exam General Appearance: no apparent distress Skin: warm Respiratory: decreased breath sounds Heart: S1S2 Abdomen: soft, bowel sounds present Neurology: alert, confused, other (mainly nonverbal) Assessment Assessment IMP [id number] HYPERNATREMIA-RESOLVED ABNORMAL LFT'S EXTRACELLULAR VOLUME DEPLETION DYSPHAGIA HX OF CVA FEVER POSS COVID 19 PROB ASPIRATION PLAN ON ANTIBIOTICS HYDRATION PPN FOR NOW NPO EMPIRIC ANTIBIOTICS WILL SIGN OFF PLEASE CALL IF NEEDED HEATHER SPRINGER MD Dec 11, 2019 11:35
[2019-12-11] MEDS: BISACODYL 10 MG SUPP.RECT. PR PRN (14:22)
[2019-12-11 15:00] VITALS: BP 140/68
--- NOTE | 2019-12-11 17:17 | NUR ---
SW following. Spoke with RN and reviewed chart. Dr. Bee to talk with family about EOL care per RN. SW spoke with RN from [facility] to give an update on this pt. SW to follow.
--- NOTE | 2019-12-11 18:04 | NUR ---
Spoke to Aidee regarding pts swallow eval. Orders entered and pt will be feed assit. Orders entered and spoke to Aidee. Pt will be feed assist at this time. Instructions to be posted in room.
[2019-12-11 19:37] VITALS: BP 137/81
[2019-12-11 22:48] VITALS: BP 170/81
[2019-12-12 03:47] VITALS: BP 161/70
[2019-12-12 04:23] LABS: BASO % 0 % (0-3); EOS % 1 % (0-3); HEMATOCRIT 36.3 % (39.0-53.0); HEMOGLOBIN 12.2 g/dL (13.0-17.5); LYMPH # 1.6 x10^3/uL (1.0-4.8); LYMPH % 22 % (24-48); MEAN CORPUSCULAR HEMOGLOBIN 29 pg (25-35); MEAN CORPUSCULAR HGB CONC 34 g/dL (31-37); MEAN CORPUSCULAR VOLUME 88 fL (79-100); MONO # 0.4 x10^3/uL (0.0-1.1); MONO % 6 % (0-9); NEUT # 5.2 x10^3/uL (1.8-7.7); NEUT % 71 % (31-73); PLATELET COUNT 169 x10^3/uL (140-400); RED BLOOD COUNT 4.13 x10^6/uL (4.30-5.70); RED CELL DISTRIBUTION WIDTH 12.5 % (11.5-14.5); WHITE BLOOD COUNT 7.4 x10^3/uL (4.0-11.0)
[2019-12-12 04:44] LABS: ALBUMIN 1.8 g/dL (3.4-5.0); ALBUMIN/GLOBULIN RATIO 0.5 (1.0-1.7); CALCIUM 7.5 mg/dL (8.5-10.1); CREATININE 0.9 mg/dL (0.7-1.3); GFR 99.5; POTASSIUM 3.8 mmol/L (3.5-5.1); TOTAL BILIRUBIN 0.7 mg/dL (0.2-1.0); TOTAL PROTEIN 5.8 g/dL (6.4-8.2)
[2019-12-12] MEDS: PIPERACILLIN/TAZOBACTAM 3.375 GM in IV NORMAL SALINE 50ML 50 ML IV SCH ×3 (05:44→18:53)
[2019-12-12] MEDS: METOPROLOL TARTRATE 5 MG/5 ML VIAL. IVP SCH ×3 (05:45→18:48)
[2019-12-12 07:15] VITALS: BP 153/91
--- NOTE | 2019-12-12 08:03 | PDOC ---
PULMONARY PROGRESS NOTES DATE: 12/12/19 TIME: 08:02 Subjective appears comfortable answers some Qs at times per rn on RA Vitals Vital Signs Date Time Temp Pulse Resp B/P (MAP) Pulse Ox O2 Delivery O2 Flow Rate FiO2 12/12/19 05:45 90 161/70 12/12/19 03:47 100.5 20 93 Room Air 100.5 12/11/19 22:48 92.0 General: No acute distress Lungs: Crackles Cardiovascular: S1 Abdomen: Soft Extremities: No Edema Skin: Warm Labs Laboratory Tests Test 12/11/19 03:30 12/12/19 03:30 White Blood Count 6.4 x10^3/uL (4.0-11.0) 7.4 x10^3/uL (4.0-11.0) Red Blood Count 4.46 x10^6/uL (4.30-5.70) 4.13 x10^6/uL (4.30-5.70) Hemoglobin 13.3 g/dL (13.0-17.5) 12.2 g/dL (13.0-17.5) Hematocrit 40.2 % (39.0-53.0) 36.3 % (39.0-53.0) Mean Corpuscular Volume 90 fL (79-100) 88 fL (79-100) Mean Corpuscular Hemoglobin 30 pg (25-35) 29 pg (25-35) Mean Corpuscular Hemoglobin Concent 33 g/dL (31-37) 34 g/dL (31-37) Red Cell Distribution Width 12.9 % (11.5-14.5) 12.5 % (11.5-14.5) Platelet Count 136 x10^3/uL (140-400) 169 x10^3/uL (140-400) Neutrophils (%) (Auto) 71 % (31-73) 71 % (31-73) Lymphocytes (%) (Auto) 23 % (24-48) 22 % (24-48) Monocytes (%) (Auto) 5 % (0-9) 6 % (0-9) Eosinophils (%) (Auto) 1 % (0-3) 1 % (0-3) Basophils (%) (Auto) 1 % (0-3) 0 % (0-3) Neutrophils # (Auto) 4.5 x10^3/uL (1.8-7.7) 5.2 x10^3/uL (1.8-7.7) Lymphocytes # (Auto) 1.4 x10^3/uL (1.0-4.8) 1.6 x10^3/uL (1.0-4.8) Monocytes # (Auto) 0.3 x10^3/uL (0.0-1.1) 0.4 x10^3/uL (0.0-1.1) Eosinophils # (Auto) 0.1 x10^3/uL (0.0-0.7) 0.0 x10^3/uL (0.0-0.7) Basophils # (Auto) 0.0 x10^3/uL (0.0-0.2) 0.0 x10^3/uL (0.0-0.2) Sodium Level 141 mmol/L (136-145) 134 mmol/L (136-145) Potassium Level 3.7 mmol/L (3.5-5.1) 3.8 mmol/L (3.5-5.1) Chloride Level 108 mmol/L (98-107) 103 mmol/L (98-107) Carbon Dioxide Level 25 mmol/L (21-32) 24 mmol/L (21-32) Anion Gap 8 (6-14) 7 (6-14) Blood Urea Nitrogen 20 mg/dL (8-26) 17 mg/dL (8-26) Creatinine 1.0 mg/dL (0.7-1.3) 0.9 mg/dL (0.7-1.3) Estimated GFR (Cockcroft-Gault) 88.1 99.5 BUN/Creatinine Ratio 20 (6-20) 19 (6-20) Glucose Level 101 mg/dL (70-99) 108 mg/dL (70-99) Calcium Level 7.9 mg/dL (8.5-10.1) 7.5 mg/dL (8.5-10.1) Total Bilirubin 0.6 mg/dL (0.2-1.0) 0.7 mg/dL (0.2-1.0) Aspartate Amino Transf (AST/SGOT) 66 U/L (15-37) 53 U/L (15-37) Alanine Aminotransferase (ALT/SGPT) 44 U/L (16-63) 37 U/L (16-63) Alkaline Phosphatase 53 U/L (46-116) 51 U/L (46-116) Total Protein 6.1 g/dL (6.4-8.2) 5.8 g/dL (6.4-8.2) Albumin 1.9 g/dL (3.4-5.0) 1.8 g/dL (3.4-5.0) Albumin/Globulin Ratio 0.5 (1.0-1.7) 0.5 (1.0-1.7) Laboratory Tests Test 12/12/19 03:30 White Blood Count 7.4 x10^3/uL (4.0-11.0) Red Blood Count 4.13 x10^6/uL (4.30-5.70) Hemoglobin 12.2 g/dL (13.0-17.5) Hematocrit 36.3 % (39.0-53.0) Mean Corpuscular Volume 88 fL (79-100) Mean Corpuscular Hemoglobin 29 pg (25-35) Mean Corpuscular Hemoglobin Concent 34 g/dL (31-37) Red Cell Distribution Width 12.5 % (11.5-14.5) Platelet Count 169 x10^3/uL (140-400) Neutrophils (%) (Auto) 71 % (31-73) Lymphocytes (%) (Auto) 22 % (24-48) Monocytes (%) (Auto) 6 % (0-9) Eosinophils (%) (Auto) 1 % (0-3) Basophils (%) (Auto) 0 % (0-3) Neutrophils # (Auto) 5.2 x10^3/uL (1.8-7.7) Lymphocytes # (Auto) 1.6 x10^3/uL (1.0-4.8) Monocytes # (Auto) 0.4 x10^3/uL (0.0-1.1) Eosinophils # (Auto) 0.0 x10^3/uL (0.0-0.7) Basophils # (Auto) 0.0 x10^3/uL (0.0-0.2) Sodium Level 134 mmol/L (136-145) Potassium Level 3.8 mmol/L (3.5-5.1) Chloride Level 103 mmol/L (98-107) Carbon Dioxide Level 24 mmol/L (21-32) Anion Gap 7 (6-14) Blood Urea Nitrogen 17 mg/dL (8-26) Creatinine 0.9 mg/dL (0.7-1.3) Estimated GFR (Cockcroft-Gault) 99.5 BUN/Creatinine Ratio 19 (6-20) Glucose Level 108 mg/dL (70-99) Calcium Level 7.5 mg/dL (8.5-10.1) Total Bilirubin 0.7 mg/dL (0.2-1.0) Aspartate Amino Transf (AST/SGOT) 53 U/L (15-37) Alanine Aminotransferase (ALT/SGPT) 37 U/L (16-63) Alkaline Phosphatase 51 U/L (46-116) Total Protein 5.8 g/dL (6.4-8.2) Albumin 1.8 g/dL (3.4-5.0) Albumin/Globulin Ratio 0.5 (1.0-1.7) Medications Active Scripts Medications Dose Route/Sig Max Daily Dose Days Date Category Vitamin D3 (Cholecalciferol (Vitamin D3)) 1,000 Unit Tablet 1 Tab PO WEEKLY 05/01/18 Reported Senokot (Sennosides) 8.6 Mg Tablet 1 Tab PO BID 05/01/18 Reported Norvasc (Amlodipine Besylate) 10 Mg Tablet 10 Mg PO DAILY 05/01/18 Reported Metoprolol Tartrate 25 Mg Tablet 0.5 Tab PO BID 05/01/18 Reported Hydrochlorothiazide Capsule (Hydrochlorothiazide) 12.5 Mg Capsule 12.5 Mg PO DAILY 05/01/18 Reported Docusate Sodium 100 Mg Capsule 1 Cap PO BID 05/01/18 Reported Aspirin 81 Mg Tab.chew 1 Tab PO DAILY 05/01/18 Reported Acetaminophen 325 Mg Tablet 650 Mg PO PRN Q4HRS PRN 05/01/18 Reported Comments CXR 1. Dobbhoff tube coiled in the mid and upper esophagus, noted to be repositioned on a subsequent radiograph. 2. Stable bilateral basilar predominant opacities. 3. Large hiatal hernia. Impression . IMPRESSION: 1. Dyspnea with cough in a patient who has suspected acute or subacute stroke. Likely has risk factors for aspiration pneumonia. ON empiric antibiotic and follow the clinical course. 2. Subacute new infarct and possible subdural hematoma versus motion artifact. 3. 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 We will follow Neurology recommendation. 3. No significant tobacco history. 4. covid19 pos Plan . RECOMMENDATIONS: Discussed with RN. At this time, continue empiric antibiotic per id. P.r.n. bronchodilators. cxr reviewed Follow Neurology recommendations-- MRI negative for any acute process, demonstrated old lacunar infract May need speech therapy. COVID-19 positive. on RA, Discussed with RN. DERRICK CONTEH MD Dec 12, 2019 08:03
[2019-12-12] MEDS: ASPIRIN CHEWABLE 81 MG TABLET. PO SCH (08:14)
[2019-12-12] MEDS: DOCUSATE SODIUM 100 MG CAPSULE. PO SCH ×2 (08:15→21:00)
[2019-12-12] MEDS: SENNOSIDES 8.6 MG TABLET PO SCH ×2 (08:15→21:00)
[2019-12-12] MEDS: PANTOPRAZOLE IV PUSH 40 MG VIAL. IVP SCH (08:41)
--- NOTE | 2019-12-12 10:29 | PDOC ---
IM PROGRESS NOTES- Subjective Subjective The patient speech is not clear and unable to do systems review. Patient is much more alert and more responsive Objective Vitals/I&O Vital Signs Date Time Temp Pulse Resp B/P (MAP) Pulse Ox O2 Delivery O2 Flow Rate FiO2 12/12/19 07:15 98.9 79 14 153/91 (111) 94 Room Air 98.9 12/11/19 22:48 92.0 I & O 12/11/19 12/11/19 12/12/19 15:00 23:00 07:00 Intake Total 0 ml 0 ml Output Total 250 ml 500 ml Balance -250 ml 0 ml -500 ml Physical Exam Physical Exam GENERAL: The patient is an elderly male who is much more alert and more responsive today, appears to be chronically and acutely ill and in mild distress. He is unable to communicate and has been coughing while trying to talk. Throat, unable to examine as the patient is coughing LUNGS: Decreased breath sounds bilaterally. Occasional rhonchi CARDIOVASCULAR: S1, S2 regular. ABDOMEN: Soft, nontender, no guarding, no rigidity. Bowel sounds present. EXTREMITIES: No edema. The patient has right-sided weakness with contracture. He also has a facial droop on the right side, but I am not sure if it is more pronounced than before as I have not seen him for some time. CENTRAL NERVOUS SYSTEM: Patient is much more alert,, speech is not clear. He has weakness of both upper extremities. He has some weakness of the lower extremities but able to move them. Unable to assess properly as patient is unab le to cooperate Labs Laboratory Tests Test 12/12/19 03:30 White Blood Count 7.4 x10^3/uL (4.0-11.0) Red Blood Count 4.13 x10^6/uL (4.30-5.70) L Hemoglobin 12.2 g/dL (13.0-17.5) L Hematocrit 36.3 % (39.0-53.0) L Mean Corpuscular Volume 88 fL (79-100) Mean Corpuscular Hemoglobin 29 pg (25-35) Mean Corpuscular Hemoglobin Concent 34 g/dL (31-37) Red Cell Distribution Width 12.5 % (11.5-14.5) Platelet Count 169 x10^3/uL (140-400) Neutrophils (%) (Auto) 71 % (31-73) Lymphocytes (%) (Auto) 22 % (24-48) L Monocytes (%) (Auto) 6 % (0-9) Eosinophils (%) (Auto) 1 % (0-3) Basophils (%) (Auto) 0 % (0-3) Neutrophils # (Auto) 5.2 x10^3/uL (1.8-7.7) Lymphocytes # (Auto) 1.6 x10^3/uL (1.0-4.8) Monocytes # (Auto) 0.4 x10^3/uL (0.0-1.1) Eosinophils # (Auto) 0.0 x10^3/uL (0.0-0.7) Basophils # (Auto) 0.0 x10^3/uL (0.0-0.2) Sodium Level 134 mmol/L (136-145) L Potassium Level 3.8 mmol/L (3.5-5.1) Chloride Level 103 mmol/L (98-107) Carbon Dioxide Level 24 mmol/L (21-32) Anion Gap 7 (6-14) Blood Urea Nitrogen 17 mg/dL (8-26) Creatinine 0.9 mg/dL (0.7-1.3) Estimated GFR (Cockcroft-Gault) 99.5 BUN/Creatinine Ratio 19 (6-20) Glucose Level 108 mg/dL (70-99) H Calcium Level 7.5 mg/dL (8.5-10.1) L Total Bilirubin 0.7 mg/dL (0.2-1.0) Aspartate Amino Transferase (AST) 53 U/L (15-37) H Alanine Aminotransferase (ALT) 37 U/L (16-63) Alkaline Phosphatase 51 U/L (46-116) Total Protein 5.8 g/dL (6.4-8.2) L Albumin 1.8 g/dL (3.4-5.0) L Albumin/Globulin Ratio 0.5 (1.0-1.7) L Laboratory Tests 12/12/19 03:30 Laboratory Tests 12/12/19 03:30 Meds Current Medications Medications (Trade) Dose Ordered Sig/Aung Route PRN Reason Start Time Stop Time Status Last Admin Dose Admin Bisacodyl (Dulcolax Supp) 10 mg PRN DAILY PRN [place] CONSTIPATION 12/11/19 14:00 12/11/19 14:22 Assessment Assessment 1. Acute cerebrovascular accident. 2. Hypertension, not controlled. 3. Dysphagia. 4. Gastroesophageal reflux disease. 5. Dehydration. 6. Elevated LFTs. 7. Electrolyte imbalance with hypernatremia and hypokalemia. 8. Physical deconditioning. 9. Low-grade fever. 10. Possible aspiration bronchitis. 11. Acute respiratory failure. Possible COVID-19 infection PLAN: 1. Patient is off IV fluids and on Clinimix 2. Dysphagia. We will keep the patient n.p.o. and have speech therapy evaluation. 3. Acute cerebrovascular accident. Consult Dr. Hood. Consult PT, OT, speech therapy, and also consult Dr. Jade for rehabilitation evaluation and management. MRI has been ordered . No evidence of subdural hematoma on MRI MRI Impression: 1. No acute infarct is identified. 2. 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 3. Scattered T2 and FLAIR hyperintense signal of the supratentorial parenchyma is nonspecific, more commonly due to chronic ischemic disease in a patient this age. There are also old lacunar infarcts as stated. 4. Dehydration. Start IV fluids. No improvement noted so will increase IV fluids.Hypernatremia improving. Sodium is 145. Dr. Camacho has been consulted. Patient is now on Clinimix. 5. Hypertension. Start IV hydralazine. We will renew the custodial medications, but will not start them yet as the patient is n.p.o. 6. Elevated LFTs. Recheck labs in a.m. Prognosis of this patient is extremely poor. Await COVID-19 test report that was done by the facility, i.e., the custodial where he lives. The staff called the custodial and apparently the patient was on the COVID-19 unit but not sure about the report. Order COVID-19 PCR test here. Not done yesterday. Staff will call [place] again. Reorder if not done.D/w staff. COVID test is positive 7. Atrial fibrillation-IV digoxin was given by the state historical society director. Started on IV Lopressor on schedule. Patient remains in sinus rhythm with few PVCs 8. Acute respiratory failure-continue oxygen by nasal cannula. Pulmonary consult.Cough ? aspiration. start Zosyn. consult ID. 9. Fever possibly due to aspiration. Continue IV Zosyn. Order blood cultures x2. Urinalysis reviewed 10. Dysphagia-still needs to be n.p.o. staff will discuss with the family to see if we can place a Dobbhoff tube and start tube feeding and discontinue PPN as he needs more nutrition. 11. COVID 19 infection. Prognosis of this patient is very poor For details, please refer to the orders. Plan Plan For more details regarding further plans, please refer to the orders. Justicifation of Admission Dx: Justifications for Admission: Justification of Admission Dx: Yes Stroke - Ischemic: Stroke-Ischemic Nutrition Consultation Dietary Evaluation: Recommendations by RD: Dietary education by RD, PPN/TPN Comments: REC PPN until pt is able to complete ROOM SERVICE ASSOCIATE eval REC diet per ROOM SERVICE ASSOCIATE w/ supplements when able REC mvi and vit c per wound protocal Expected Outcomes/Goals: diet advancement vs nutrition support Interpretation of weight loss: >10% in 6 months Malnutrition Findings: Food and Nutrition Intake (Sev: <50% est energy req 5days Weight Status: Underweight JEROME SHELL MD Dec 12, 2019 10:29
[2019-12-12] MEDS: AMINO AC 3%/ELECTROLYTE/GLYCER 1,000 ML IV SCH (10:45)
--- NOTE | 2019-12-12 11:09 | PDOC ---
Infectious Disease Note Subjective Subjective Noncommunicative Low-grade fevers Tmax 100.5 PPN SpO2 92% on room air ROS ROS unobtainable Vital Sign Vital Signs Vital Signs Date Time Temp Pulse Resp B/P (MAP) Pulse Ox O2 Delivery O2 Flow Rate FiO2 12/12/19 07:15 98.9 79 14 153/91 (111) 94 Room Air 98.9 12/11/19 22:48 92.0 Physical Exam PHYSICAL EXAM GENERAL: Propped up in bed, awake, appears comfortable HEENT: Resists oral exam NECK: Supple. LUNGS: Decreased breath sound at the bases, nonlabored HEART: S1, S2. irregular ABDOMEN: Soft, no guarding : Kelley in place EXTREMITIES: Multiple contractures, mainly on the right side. No edema. DERMATOLOGIC: Warm, dry. No generalized rash. PSYCHIATRIC: Calm. PIV looks ok Labs Lab Laboratory Tests Test 12/12/19 03:30 White Blood Count 7.4 x10^3/uL (4.0-11.0) Red Blood Count 4.13 x10^6/uL (4.30-5.70) Hemoglobin 12.2 g/dL (13.0-17.5) Hematocrit 36.3 % (39.0-53.0) Mean Corpuscular Volume 88 fL (79-100) Mean Corpuscular Hemoglobin 29 pg (25-35) Mean Corpuscular Hemoglobin Concent 34 g/dL (31-37) Red Cell Distribution Width 12.5 % (11.5-14.5) Platelet Count 169 x10^3/uL (140-400) Neutrophils (%) (Auto) 71 % (31-73) Lymphocytes (%) (Auto) 22 % (24-48) Monocytes (%) (Auto) 6 % (0-9) Eosinophils (%) (Auto) 1 % (0-3) Basophils (%) (Auto) 0 % (0-3) Neutrophils # (Auto) 5.2 x10^3/uL (1.8-7.7) Lymphocytes # (Auto) 1.6 x10^3/uL (1.0-4.8) Monocytes # (Auto) 0.4 x10^3/uL (0.0-1.1) Eosinophils # (Auto) 0.0 x10^3/uL (0.0-0.7) Basophils # (Auto) 0.0 x10^3/uL (0.0-0.2) Sodium Level 134 mmol/L (136-145) Potassium Level 3.8 mmol/L (3.5-5.1) Chloride Level 103 mmol/L (98-107) Carbon Dioxide Level 24 mmol/L (21-32) Anion Gap 7 (6-14) Blood Urea Nitrogen 17 mg/dL (8-26) Creatinine 0.9 mg/dL (0.7-1.3) Estimated GFR (Cockcroft-Gault) 99.5 BUN/Creatinine Ratio 19 (6-20) Glucose Level 108 mg/dL (70-99) Calcium Level 7.5 mg/dL (8.5-10.1) Total Bilirubin 0.7 mg/dL (0.2-1.0) Aspartate Amino Transf (AST/SGOT) 53 U/L (15-37) Alanine Aminotransferase (ALT/SGPT) 37 U/L (16-63) Alkaline Phosphatase 51 U/L (46-116) Total Protein 5.8 g/dL (6.4-8.2) Albumin 1.8 g/dL (3.4-5.0) Albumin/Globulin Ratio 0.5 (1.0-1.7) Micro Microbiology 12/10/19 Blood Culture - Preliminary, Resulted NO GROWTH AFTER 1 DAY Objective Assessment COVID 19 Infection, 12/08. Fever. Possible aspiration. History of cerebrovascular accident. MRI Brain neg for acute process Hypernatremia, improved Dehydration. Abnormal liver function tests. Protein-calorie malnutrition. [place] resident Plan Plan of Care Continue supportive care continue Zosyn. Maintains aspiration precaution Follow-up labs and cultures Contain isolation for COVID 19 Attending Co-Sign Attending Co-Sign Attending Co-Sign The patient was seen and examined at the bedside. The chart was reviewed. The case was discussed. Agree with the plan of care. KIRSTY MCDUFFIE APRN Dec 12, 2019 11:09 CARMEN LARA MD Dec 12, 2019 13:35
[2019-12-12 11:20] VITALS: BP 139/64
[2019-12-12] MEDS: ENOXAPARIN 40 MG/0.4 ML SYRINGE. SQ SCH (12:14)
[2019-12-12] MEDS: POTASSIUM CL 20MEQ D5-0.45NACL 1,000 ML IV SCH (13:05)
[2019-12-12] MEDS ORDERED: hydrALAZINE 20 MG/ML VIAL. IVP PRN (15:30)
[2019-12-12 15:31] VITALS: BP 203/93
--- NOTE | 2019-12-12 18:01 | RAD ---
CHEST AP ONLY INDICATION: Reason: NG placement / Spl. Instructions: / History: . COMPARISON STUDY: 12/11/2019. FINDINGS: Life Support Devices: Dobbhoff tube coiled in the mid and upper esophagus. Lungs: Normal lung volume. No focal airspace disease. Normal pulmonary vasculature. Pleura: No pleural effusion or pneumothorax. Heart and Mediastinum: Stable cardiomediastinal silhouette and great vessels. Large hiatal hernia. IMPRESSION: 1. Dobbhoff tube coiled in the mid and upper esophagus, noted to be repositioned on a subsequent radiograph. 2. Stable bilateral basilar predominant opacities. 3. Large hiatal hernia. Electronically signed by: Ta Girard MD (12/12/2019 5:58 PM) SHIRA
--- NOTE | 2019-12-12 18:20 | RAD ---
Chest AP portable at 1730: Reason for examination: NG tube placement. Comparison is made to previous study dated 12/12/2019 at 1655. NG tube tip is now in the region of the distal esophagus above the level of the EG junction. Heart and mediastinum are unremarkable. Lung armando show a mild increase in interstitial markings in the lung bases which is unchanged. No pleural effusions are seen. No pneumothorax is seen. No acute bony abnormalities evident. IMPRESSION: NG tube present with the tip at the distal esophagus above the EG junction. Electronically signed by: Valentina Mandujano MD (12/12/2019 6:17 PM) OSMAR
[2019-12-12 20:16] VITALS: BP 141/63
--- NOTE | 2019-12-12 21:34 | RAD ---
KUB portable at 2041: Reason for examination: Dobbhoff tube placement. Examination is limited due to patient positioning. Dobbhoff tube is present but the tip is in the region of the distal esophagus at the level of the EG junction. This needs to be advanced further into the stomach. IMPRESSION: Dobbhoff tube tip appears to be in the region of the EG junction and needs to be advanced further into the stomach Electronically signed by: Valentina Mandujano MD (12/12/2019 9:31 PM) RAMOS
[2019-12-12] MEDS: ACETAMINOPHEN 650 MG SUPP.RECT. PR PRN (21:41)
[2019-12-12 23:59] VITALS: BP 148/104
[2019-12-13] MEDS: AMINO AC 3%/ELECTROLYTE/GLYCER 1,000 ML IV SCH ×3 (00:03→15:22)
[2019-12-13] MEDS: POTASSIUM CL 20MEQ D5-0.45NACL 1,000 ML IV SCH (00:04)
[2019-12-13] MEDS: PIPERACILLIN/TAZOBACTAM 3.375 GM in IV NORMAL SALINE 50ML 50 ML IV SCH ×5 (00:06→23:08)
[2019-12-13] MEDS: METOPROLOL TARTRATE 5 MG/5 ML VIAL. IVP SCH ×5 (00:11→23:07)
[2019-12-13 04:20] LABS: BASO % 1 % (0-3); EOS # 0.1 x10^3/uL (0.0-0.7); EOS % 1 % (0-3); HEMATOCRIT 36.9 % (39.0-53.0); HEMOGLOBIN 12.5 g/dL (13.0-17.5); LYMPH # 1.6 x10^3/uL (1.0-4.8); LYMPH % 21 % (24-48); MEAN CORPUSCULAR HEMOGLOBIN 30 pg (25-35); MEAN CORPUSCULAR HGB CONC 34 g/dL (31-37); MEAN CORPUSCULAR VOLUME 87 fL (79-100); MONO # 0.5 x10^3/uL (0.0-1.1); MONO % 6 % (0-9); NEUT # 5.4 x10^3/uL (1.8-7.7); NEUT % 72 % (31-73); PLATELET COUNT 187 x10^3/uL (140-400); RED BLOOD COUNT 4.23 x10^6/uL (4.30-5.70); RED CELL DISTRIBUTION WIDTH 12.6 % (11.5-14.5); WHITE BLOOD COUNT 7.6 x10^3/uL (4.0-11.0)
[2019-12-13 05:12] VITALS: BP 140/68
[2019-12-13 05:26] LABS: ALBUMIN 1.7 g/dL (3.4-5.0); ALBUMIN/GLOBULIN RATIO 0.4 (1.0-1.7); CALCIUM 7.8 mg/dL (8.5-10.1); CREATININE 0.9 mg/dL (0.7-1.3); GFR 99.5; POTASSIUM 3.6 mmol/L (3.5-5.1); TOTAL BILIRUBIN 0.6 mg/dL (0.2-1.0)
[2019-12-13] MEDS: PANTOPRAZOLE IV PUSH 40 MG VIAL. IVP SCH (05:37)
[2019-12-13] MEDS: DOCUSATE SODIUM 100 MG CAPSULE. PO SCH ×2 (09:00→20:10)
[2019-12-13] MEDS: ASPIRIN CHEWABLE 81 MG TABLET. PO SCH (09:00)
[2019-12-13] MEDS: SENNOSIDES 8.6 MG TABLET PO SCH ×2 (09:00→20:10)
--- NOTE | 2019-12-13 09:34 | RAD ---
Examination: KUB History: Reason: dobhoff placement, Advanced / Spl. Instructions: / History: Comparison/Correlation: 12/13/2019 7:30 AM Findings: Portable supine frontal view of the abdomen was obtained. Dobbhoff tube is identified terminates at the gastroesophageal junction level. Interstitial infiltrates in the right lung field noted. Gaseous distention of the bowel is mild. Impression: Dobbhoff tube is terminates at the gastroesophageal junction presumably within the patient's known hiatal hernia. Electronically signed by: Wong Nicholas MD (12/13/2019 9:31 AM) [id number]
--- NOTE | 2019-12-13 09:37 | RAD ---
KUB portable at 0730: Reason for examination: Dobbhoff tube placement. Dobbhoff tube courses along the midline of the thorax with the tip to the right of midline above the level of the hemidiaphragms. Patient is known from previous CT examination to have a large hiatal hernia and this is probably within the hiatal hernia. Bowel gas pattern is nonspecific with no large amount of intestinal air present but a large amount of this air appears be colonic. No abnormal calcifications are seen. No acute bony abnormalities are seen. IMPRESSION: Dobbhoff tube tip above the hemidiaphragm probably within the patient's known large hiatal hernia. Nonspecific bowel gas pattern with large amount of colonic air present. Electronically signed by: Valentina Mandujano MD (12/13/2019 9:35 AM) OSMAR
--- NOTE | 2019-12-13 09:53 | PDOC ---
IM PROGRESS NOTES- Subjective Subjective Patient is alert and more responsive but he pulled out the Dobbhoff tube last night. Awaiting KUB. Use mittens. Patient has been advised not to pull out the Dobbhoff. Objective Vitals/I&O Vital Signs Date Time Temp Pulse Resp B/P (MAP) Pulse Ox O2 Delivery O2 Flow Rate FiO2 12/13/19 07:40 Room Air 12/13/19 06:39 20 12/13/19 05:36 79 140/68 12/13/19 05:12 97.7 97.7 12/12/19 23:59 99 I & O 12/12/19 12/12/19 12/13/19 15:00 23:00 07:00 Intake Total 0 ml 0 ml Output Total 800 ml 1100 ml Balance 0 ml -800 ml -1100 ml Physical Exam Physical Exam GENERAL: The patient is an elderly male who is much more alert and more responsive today, appears to be chronically and acutely ill and in mild distress. He is unable to communicate and has been coughing while trying to talk. Throat, unable to examine as the patient is coughing LUNGS: Decreased breath sounds bilaterally. Occasional rhonchi CARDIOVASCULAR: S1, S2 regular. ABDOMEN: Soft, nontender, no guarding, no rigidity. Bowel sounds present. EXTREMITIES: No edema. The patient has right-sided weakness with contracture. He also has a facial droop on the right side, but I am not sure if it is more pronounced than before as I have not seen him for some time. CENTRAL NERVOUS SYSTEM: Patient is much more alert,, speech is not clear. He has weakness of both upper extremities. He has some weakness of the lower extremities but able to move them. Unable to assess properly as patient is unable to cooperate Labs Laboratory Tests Test 12/13/19 04:00 White Blood Count 7.6 x10^3/uL (4.0-11.0) Red Blood Count 4.23 x10^6/uL (4.30-5.70) L Hemoglobin 12.5 g/dL (13.0-17.5) L Hematocrit 36.9 % (39.0-53.0) L Mean Corpuscular Volume 87 fL (79-100) Mean Corpuscular Hemoglobin 30 pg (25-35) Mean Corpuscular Hemoglobin Concent 34 g/dL (31-37) Red Cell Distribution Width 12.6 % (11.5-14.5) Platelet Count 187 x10^3/uL (140-400) Neutrophils (%) (Auto) 72 % (31-73) Lymphocytes (%) (Auto) 21 % (24-48) L Monocytes (%) (Auto) 6 % (0-9) Eosinophils (%) (Auto) 1 % (0-3) Basophils (%) (Auto) 1 % (0-3) Neutrophils # (Auto) 5.4 x10^3/uL (1.8-7.7) Lymphocytes # (Auto) 1.6 x10^3/uL (1.0-4.8) Monocytes # (Auto) 0.5 x10^3/uL (0.0-1.1) Eosinophils # (Auto) 0.1 x10^3/uL (0.0-0.7) Basophils # (Auto) 0.0 x10^3/uL (0.0-0.2) Sodium Level 136 mmol/L (136-145) Potassium Level 3.6 mmol/L (3.5-5.1) Chloride Level 104 mmol/L (98-107) Carbon Dioxide Level 22 mmol/L (21-32) Anion Gap 10 (6-14) Blood Urea Nitrogen 17 mg/dL (8-26) Creatinine 0.9 mg/dL (0.7-1.3) Estimated GFR (Cockcroft-Gault) 99.5 BUN/Creatinine Ratio 19 (6-20) Glucose Level 106 mg/dL (70-99) H Calcium Level 7.8 mg/dL (8.5-10.1) L Magnesium Level 2.2 mg/dL (1.8-2.4) Total Bilirubin 0.6 mg/dL (0.2-1.0) Aspartate Amino Transferase (AST) 62 U/L (15-37) H Alanine Aminotransferase (ALT) 44 U/L (16-63) Alkaline Phosphatase 56 U/L (46-116) Total Protein 6.0 g/dL (6.4-8.2) L Albumin 1.7 g/dL (3.4-5.0) L Albumin/Globulin Ratio 0.4 (1.0-1.7) L Laboratory Tests 12/13/19 04:00 Laboratory Tests 12/13/19 04:00 Meds Current Medications Medications (Trade) Dose Ordered Sig/Aung Route PRN Reason Start Time Stop Time Status Last Admin Dose Admin Enoxaparin Sodium (Lovenox 40mg Syringe) 40 mg Q24H SQ 12/12/19 11:30 12/12/19 12:14 Hydralazine HCl (Apresoline Inj) 10 mg PRN Q4HRS PRN IVP ELEVATED BP, SEE COMMENTS 12/12/19 15:30 12/12/19 15:52 Assessment Assessment 1. Acute cerebrovascular accident. 2. Hypertension, not controlled. 3. Dysphagia. 4. Gastroesophageal reflux disease. 5. Dehydration. 6. Elevated LFTs. 7. Electrolyte imbalance with hypernatremia and hypokalemia. 8. Physical deconditioning. 9. Low-grade fever. 10. Possible aspiration bronchitis. 11. Acute respiratory failure. Possible COVID-19 infection PLAN: 1. Patient is off IV fluids and on Clinimix 2. Dysphagia. We will keep the patient n.p.o. and have speech therapy evaluation. 3. Acute cerebrovascular accident. Consult Dr. Hood. Consult PT, OT, speech therapy, and also consult Dr. Jade for rehabilitation evaluation and management. MRI has been ordered . No evidence of subdural hematoma on MRI MRI Impression: 1. No acute infarct is identified. 2. 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 3. Scattered T2 and FLAIR hyperintense signal of the supratentorial parenchyma is nonspecific, more commonly due to chronic ischemic disease in a patient this age. There are also old lacunar infarcts as stated. 4. Dehydration. Start IV fluids. No improvement noted so will increase IV fluids.Hypernatremia improving. Sodium is 145. Dr. Pierre has been consulted. Patient is now on Clinimix. Discontinue IV D5W. 5. Hypertension. Start IV hydralazine. Restart some of the home medications when the Dobbhoff tube is placed. 6. Elevated LFTs. Recheck labs in a.m. Prognosis of this patient is extremely poor. Await COVID-19 test report that was done by the facility[facility] The staff called the [facility] and apparently the patient was on the COVID-19 unit but not sure about the report. Order COVID-19 PCR test here. Not done yesterday. Staff will call [facility] again. Reorder if not done.D/w staff. COVID test is positive 7. Atrial fibrillation-IV digoxin was given by the pull through hooker. Started on IV Lopressor on schedule. Patient remains in sinus rhythm with few PVCs 8. Acute respiratory failure-continue oxygen by nasal cannula. Pulmonary consult.Cough ? aspiration. start Zosyn. consult ID. 9. Fever possibly due to aspiration. Continue IV Zosyn. Order blood cultures x2. Urinalysis reviewed 10. Dysphagia-still needs to be n.p.o. the family has agreed to start Dobbhoff tube feeding 11. COVID 19 infection. 12. Right heel and coccyx wounds present on admission. Continue wound care. Use mittens for restraints. Decrease Clinimix to 40 cc/h this evening if patient tolerates tube feeding and keeps the Dobbhoff in. Prognosis of this patient is very poor For details, please refer to the orders. Plan Plan For more details regarding further plans, please refer to the orders. Justicifation of Admission Dx: Justifications for Admission: Justification of Admission Dx: Yes Stroke - Ischemic: Stroke-Ischemic Nutrition Consultation Dietary Evaluation: Recommendations by RD: Dietary education by RD, PPN/TPN Comments: REC PPN until pt is able to complete [employer] eval REC diet per [employer]CH[employer]ECT w/ supplements when able REC mvi and vit c per wound protocal Expected Outcomes/Goals: diet advancement vs nutrition support Interpretation of weight loss: >10% in 6 months Malnutrition Findings: Food and Nutrition Intake (Sev: <50% est energy req 5days Weight Status: Underweight JEROME SHELL MD Dec 13, 2019 09:53
[2019-12-13 11:11] VITALS: BP 155/72
[2019-12-13] MEDS: ENOXAPARIN 40 MG/0.4 ML SYRINGE. SQ SCH (12:17)
--- NOTE | 2019-12-13 12:30 | PDOC ---
PULMONARY PROGRESS NOTES DATE: 12/13/19 TIME: 12:29 Subjective appears comfortable doesnt answer my Qs on RA t max 101.1 Vitals Vital Signs Date Time Temp Pulse Resp B/P (MAP) Pulse Ox O2 Delivery O2 Flow Rate FiO2 12/13/19 12:17 68 155/72 12/13/19 11:11 96.9 20 98 Room Air 96.9 Comments appears comfortable alert no distress nc at rrr no accessory muscle use no rash General: No acute distress Lungs: Crackles Cardiovascular: S1, S2 Extremities: No Edema Skin: No Rashes Labs Laboratory Tests Test 12/12/19 03:30 12/13/19 04:00 White Blood Count 7.4 x10^3/uL (4.0-11.0) 7.6 x10^3/uL (4.0-11.0) Red Blood Count 4.13 x10^6/uL (4.30-5.70) 4.23 x10^6/uL (4.30-5.70) Hemoglobin 12.2 g/dL (13.0-17.5) 12.5 g/dL (13.0-17.5) Hematocrit 36.3 % (39.0-53.0) 36.9 % (39.0-53.0) Mean Corpuscular Volume 88 fL (79-100) 87 fL (79-100) Mean Corpuscular Hemoglobin 29 pg (25-35) 30 pg (25-35) Mean Corpuscular Hemoglobin Concent 34 g/dL (31-37) 34 g/dL (31-37) Red Cell Distribution Width 12.5 % (11.5-14.5) 12.6 % (11.5-14.5) Platelet Count 169 x10^3/uL (140-400) 187 x10^3/uL (140-400) Neutrophils (%) (Auto) 71 % (31-73) 72 % (31-73) Lymphocytes (%) (Auto) 22 % (24-48) 21 % (24-48) Monocytes (%) (Auto) 6 % (0-9) 6 % (0-9) Eosinophils (%) (Auto) 1 % (0-3) 1 % (0-3) Basophils (%) (Auto) 0 % (0-3) 1 % (0-3) Neutrophils # (Auto) 5.2 x10^3/uL (1.8-7.7) 5.4 x10^3/uL (1.8-7.7) Lymphocytes # (Auto) 1.6 x10^3/uL (1.0-4.8) 1.6 x10^3/uL (1.0-4.8) Monocytes # (Auto) 0.4 x10^3/uL (0.0-1.1) 0.5 x10^3/uL (0.0-1.1) Eosinophils # (Auto) 0.0 x10^3/uL (0.0-0.7) 0.1 x10^3/uL (0.0-0.7) Basophils # (Auto) 0.0 x10^3/uL (0.0-0.2) 0.0 x10^3/uL (0.0-0.2) Sodium Level 134 mmol/L (136-145) 136 mmol/L (136-145) Potassium Level 3.8 mmol/L (3.5-5.1) 3.6 mmol/L (3.5-5.1) Chloride Level 103 mmol/L (98-107) 104 mmol/L (98-107) Carbon Dioxide Level 24 mmol/L (21-32) 22 mmol/L (21-32) Anion Gap 7 (6-14) 10 (6-14) Blood Urea Nitrogen 17 mg/dL (8-26) 17 mg/dL (8-26) Creatinine 0.9 mg/dL (0.7-1.3) 0.9 mg/dL (0.7-1.3) Estimated GFR (Cockcroft-Gault) 99.5 99.5 BUN/Creatinine Ratio 19 (6-20) 19 (6-20) Glucose Level 108 mg/dL (70-99) 106 mg/dL (70-99) Calcium Level 7.5 mg/dL (8.5-10.1) 7.8 mg/dL (8.5-10.1) Total Bilirubin 0.7 mg/dL (0.2-1.0) 0.6 mg/dL (0.2-1.0) Aspartate Amino Transf (AST/SGOT) 53 U/L (15-37) 62 U/L (15-37) Alanine Aminotransferase (ALT/SGPT) 37 U/L (16-63) 44 U/L (16-63) Alkaline Phosphatase 51 U/L (46-116) 56 U/L (46-116) Total Protein 5.8 g/dL (6.4-8.2) 6.0 g/dL (6.4-8.2) Albumin 1.8 g/dL (3.4-5.0) 1.7 g/dL (3.4-5.0) Albumin/Globulin Ratio 0.5 (1.0-1.7) 0.4 (1.0-1.7) Magnesium Level 2.2 mg/dL (1.8-2.4) Laboratory Tests Test 12/13/19 04:00 White Blood Count 7.6 x10^3/uL (4.0-11.0) Red Blood Count 4.23 x10^6/uL (4.30-5.70) Hemoglobin 12.5 g/dL (13.0-17.5) Hematocrit 36.9 % (39.0-53.0) Mean Corpuscular Volume 87 fL (79-100) Mean Corpuscular Hemoglobin 30 pg (25-35) Mean Corpuscular Hemoglobin Concent 34 g/dL (31-37) Red Cell Distribution Width 12.6 % (11.5-14.5) Platelet Count 187 x10^3/uL (140-400) Neutrophils (%) (Auto) 72 % (31-73) Lymphocytes (%) (Auto) 21 % (24-48) Monocytes (%) (Auto) 6 % (0-9) Eosinophils (%) (Auto) 1 % (0-3) Basophils (%) (Auto) 1 % (0-3) Neutrophils # (Auto) 5.4 x10^3/uL (1.8-7.7) Lymphocytes # (Auto) 1.6 x10^3/uL (1.0-4.8) Monocytes # (Auto) 0.5 x10^3/uL (0.0-1.1) Eosinophils # (Auto) 0.1 x10^3/uL (0.0-0.7) Basophils # (Auto) 0.0 x10^3/uL (0.0-0.2) Sodium Level 136 mmol/L (136-145) Potassium Level 3.6 mmol/L (3.5-5.1) Chloride Level 104 mmol/L (98-107) Carbon Dioxide Level 22 mmol/L (21-32) Anion Gap 10 (6-14) Blood Urea Nitrogen 17 mg/dL (8-26) Creatinine 0.9 mg/dL (0.7-1.3) Estimated GFR (Cockcroft-Gault) 99.5 BUN/Creatinine Ratio 19 (6-20) Glucose Level 106 mg/dL (70-99) Calcium Level 7.8 mg/dL (8.5-10.1) Magnesium Level 2.2 mg/dL (1.8-2.4) Total Bilirubin 0.6 mg/dL (0.2-1.0) Aspartate Amino Transf (AST/SGOT) 62 U/L (15-37) Alanine Aminotransferase (ALT/SGPT) 44 U/L (16-63) Alkaline Phosphatase 56 U/L (46-116) Total Protein 6.0 g/dL (6.4-8.2) Albumin 1.7 g/dL (3.4-5.0) Albumin/Globulin Ratio 0.4 (1.0-1.7) Medications Active Scripts Medications Dose Route/Sig Max Daily Dose Days Date Category Vitamin D3 (Cholecalciferol (Vitamin D3)) 1,000 Unit Tablet 1 Tab PO WEEKLY 05/01/18 Reported Senokot (Sennosides) 8.6 Mg Tablet 1 Tab PO BID 05/01/18 Reported Norvasc (Amlodipine Besylate) 10 Mg Tablet 10 Mg PO DAILY 05/01/18 Reported Metoprolol Tartrate 25 Mg Tablet 0.5 Tab PO BID 05/01/18 Reported Hydrochlorothiazide Capsule (Hydrochlorothiazide) 12.5 Mg Capsule 12.5 Mg PO DAILY 05/01/18 Reported Docusate Sodium 100 Mg Capsule 1 Cap PO BID 05/01/18 Reported Aspirin 81 Mg Tab.chew 1 Tab PO DAILY 05/01/18 Reported Acetaminophen 325 Mg Tablet 650 Mg PO PRN Q4HRS PRN 05/01/18 Reported Comments CXR 1. Dobbhoff tube coiled in the mid and upper esophagus, noted to be repositioned on a subsequent radiograph. 2. Stable bilateral basilar predominant opacities. 3. Large hiatal hernia. Impression . IMPRESSION: 1. Dyspnea with cough in a patient who has suspected acute or subacute stroke. Likely has risk factors for aspiration pneumonia. ON empiric antibiotic and follow the clinical course. 2. Subacute new infarct and possible subdural hematoma versus motion artifact. 3. 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 We will follow Neurology recommendation. 3. No significant tobacco history. 4. covid19 pos, fever Plan . RECOMMENDATIONS: Discussed with RN. At this time, continue empiric antibiotic per id. P.r.n. bronchodilators. cxr reviewed Follow Neurology recommendations-- MRI negative for any acute process, demonstrated old lacunar infract May need speech therapy. COVID-19 positive. on RA, Discussed with RN. DERRICK CONTEH MD Dec 13, 2019 12:30
--- NOTE | 2019-12-13 12:46 | PDOC ---
Infectious Disease Note Subjective Subjective s/p Dobbhoff placement Noncommunicative Low-grade fevers Tmax 101.1 PPN SpO2 92% on room air ROS ROS unobtainable Vital Sign Vital Signs Vital Signs Date Time Temp Pulse Resp B/P (MAP) Pulse Ox O2 Delivery O2 Flow Rate FiO2 12/13/19 12:17 68 155/72 12/13/19 11:11 96.9 20 98 Room Air 96.9 Physical Exam PHYSICAL EXAM GENERAL: Propped up in bed, awake, appears comfortable HEENT: Resists oral exam. Dobbhoff in place NECK: Supple. LUNGS: Decreased breath sound at the bases, nonlabored HEART: S1, S2. irregular ABDOMEN: Soft, no guarding : Kelley in place EXTREMITIES: Multiple contractures, mainly on the right side. No edema. DERMATOLOGIC: Warm, dry. No generalized rash. PSYCHIATRIC: Calm. PIV looks ok Labs Lab Laboratory Tests Test 12/13/19 04:00 White Blood Count 7.6 x10^3/uL (4.0-11.0) Red Blood Count 4.23 x10^6/uL (4.30-5.70) Hemoglobin 12.5 g/dL (13.0-17.5) Hematocrit 36.9 % (39.0-53.0) Mean Corpuscular Volume 87 fL (79-100) Mean Corpuscular Hemoglobin 30 pg (25-35) Mean Corpuscular Hemoglobin Concent 34 g/dL (31-37) Red Cell Distribution Width 12.6 % (11.5-14.5) Platelet Count 187 x10^3/uL (140-400) Neutrophils (%) (Auto) 72 % (31-73) Lymphocytes (%) (Auto) 21 % (24-48) Monocytes (%) (Auto) 6 % (0-9) Eosinophils (%) (Auto) 1 % (0-3) Basophils (%) (Auto) 1 % (0-3) Neutrophils # (Auto) 5.4 x10^3/uL (1.8-7.7) Lymphocytes # (Auto) 1.6 x10^3/uL (1.0-4.8) Monocytes # (Auto) 0.5 x10^3/uL (0.0-1.1) Eosinophils # (Auto) 0.1 x10^3/uL (0.0-0.7) Basophils # (Auto) 0.0 x10^3/uL (0.0-0.2) Sodium Level 136 mmol/L (136-145) Potassium Level 3.6 mmol/L (3.5-5.1) Chloride Level 104 mmol/L (98-107) Carbon Dioxide Level 22 mmol/L (21-32) Anion Gap 10 (6-14) Blood Urea Nitrogen 17 mg/dL (8-26) Creatinine 0.9 mg/dL (0.7-1.3) Estimated GFR (Cockcroft-Gault) 99.5 BUN/Creatinine Ratio 19 (6-20) Glucose Level 106 mg/dL (70-99) Calcium Level 7.8 mg/dL (8.5-10.1) Magnesium Level 2.2 mg/dL (1.8-2.4) Total Bilirubin 0.6 mg/dL (0.2-1.0) Aspartate Amino Transf (AST/SGOT) 62 U/L (15-37) Alanine Aminotransferase (ALT/SGPT) 44 U/L (16-63) Alkaline Phosphatase 56 U/L (46-116) Total Protein 6.0 g/dL (6.4-8.2) Albumin 1.7 g/dL (3.4-5.0) Albumin/Globulin Ratio 0.4 (1.0-1.7) Micro Microbiology 12/10/19 Blood Culture - Preliminary, Resulted NO GROWTH AFTER 3 DAY Objective Assessment COVID 19 Infection, 12/08. Fever. Possible aspiration. History of cerebrovascular accident. MRI Brain neg for acute process Hypernatremia, improved Dehydration. Abnormal liver function tests. Protein-calorie malnutrition. [facility] resident Plan Plan of Care Continue supportive care continue Zosyn. Maintains aspiration precaution Follow-up labs and cultures Contain isolation for COVID 19 D/w nursing Attending Co-Sign The patient was seen and examined at the bedside. The chart was reviewed. The c ase was discussed. Agree with the plan of care. KIRSTY MCDUFFIE APRN Dec 13, 2019 12:46 CARMEN LARA MD Dec 13, 2019 15:24
--- NOTE | 2019-12-13 14:42 | RAD ---
KUB: Reason for examination: Dobbhoff tube placement. Comparison is made to previous study dated 12/13/2019 at 0732. Dobbhoff tube tip is now in the upper abdomen with the tip in the region of the antrum or proximal duodenum. There is no gross organomegaly. Bowel gas pattern is nonspecific with large amount of intestinal air which is predominantly colonic. IMPRESSION: Dobbhoff tube tip in the region of gastric antrum or proximal duodenum. Large intestinal gas which appears to be predominantly colonic. Electronically signed by: Valentina Mandujano MD (12/13/2019 2:39 PM) OSMAR
[2019-12-13 15:54] VITALS: BP 131/95
[2019-12-13 19:05] VITALS: BP 157/74
[2019-12-13 22:39] VITALS: BP 162/94
[2019-12-14 03:56] VITALS: BP 138/69
[2019-12-14] MEDS: PIPERACILLIN/TAZOBACTAM 3.375 GM in IV NORMAL SALINE 50ML 50 ML IV SCH ×3 (04:57→17:38)
[2019-12-14] MEDS: METOPROLOL TARTRATE 5 MG/5 ML VIAL. IVP SCH ×3 (04:57→17:38)
[2019-12-14 06:44] LABS: ALBUMIN/GLOBULIN RATIO 0.5 (1.0-1.7); CALCIUM 7.8 mg/dL (8.5-10.1); CREATININE 0.8 mg/dL (0.7-1.3); POTASSIUM 4.2 mmol/L (3.5-5.1); TOTAL BILIRUBIN 0.6 mg/dL (0.2-1.0); TOTAL PROTEIN 5.8 g/dL (6.4-8.2)
[2019-12-14 07:14] VITALS: BP 145/59
[2019-12-14] MEDS: SENNOSIDES 8.6 MG TABLET PO SCH ×2 (09:00→20:21)
[2019-12-14] MEDS: ASPIRIN CHEWABLE 81 MG TABLET. PO SCH (09:00)
[2019-12-14] MEDS: DOCUSATE SODIUM 100 MG CAPSULE. PO SCH ×2 (09:00→20:21)
[2019-12-14] MEDS ORDERED: CHOLECALCIFEROL (VITAMIN D3) 1,000 UNIT TABLET PO SCH (09:00)
--- NOTE | 2019-12-14 09:11 | PDOC ---
IM PROGRESS NOTES- Subjective Subjective Patient is alert and more responsive but he pulled out the Dobbhoff tube last night. Awaiting KUB. Use mittens. Patient has been advised not to pull out the Dobbhoff. Objective Vitals/I&O Vital Signs Date Time Temp Pulse Resp B/P (MAP) Pulse Ox O2 Delivery O2 Flow Rate FiO2 12/14/19 08:15 Room Air 12/14/19 07:14 97.2 82 24 145/59 (87) 96 97.2 I & O 12/13/19 12/13/19 12/14/19 15:00 23:00 07:00 Intake Total 0 ml 100 ml 1000 ml Output Total 850 ml 750 ml Balance 0 ml -750 ml 250 ml Physical Exam Physical Exam GENERAL: The patient is an elderly male who is much more alert and more responsive today, appears to be chronically and acutely ill and in mild distress. He is unable to communicate and has been coughing while trying to talk. Throat, unable to examine as the patient is coughing LUNGS: Decreased breath sounds bilaterally. Occasional rhonchi CARDIOVASCULAR: S1, S2 regular. ABDOMEN: Soft, nontender, no guarding, no rigidity. Bowel sounds present. EXTREMITIES: No edema. The patient has right-sided weakness with contracture. He also has a facial droop on the right side, but I am not sure if it is more pronounced than before as I have not seen him for some time. CENTRAL NERVOUS SYSTEM: Patient is much more alert,, speech is not clear. He has weakness of both upper extremities. He has some weakness of the lower extremities but able to move them. Unable to assess properly as patient is unable to cooperate Labs Laboratory Tests Test 12/14/19 04:30 Sodium Level 139 mmol/L (136-145) Potassium Level 4.2 mmol/L (3.5-5.1) Chloride Level 105 mmol/L (98-107) Carbon Dioxide Level 22 mmol/L (21-32) Anion Gap 12 (6-14) Blood Urea Nitrogen 17 mg/dL (8-26) Creatinine 0.8 mg/dL (0.7-1.3) Estimated GFR (Cockcroft-Gault) 114.0 BUN/Creatinine Ratio 21 (6-20) H Glucose Level 106 mg/dL (70-99) H Calcium Level 7.8 mg/dL (8.5-10.1) L Total Bilirubin 0.6 mg/dL (0.2-1.0) Aspartate Amino Transferase (AST) 56 U/L (15-37) H Alanine Aminotransferase (ALT) 43 U/L (16-63) Alkaline Phosphatase 74 U/L (46-116) Total Protein 5.8 g/dL (6.4-8.2) L Albumin 2.0 g/dL (3.4-5.0) L Albumin/Globulin Ratio 0.5 (1.0-1.7) L Laboratory Tests 12/14/19 04:30 Assessment Assessment 1. Acute cerebrovascular accident. 2. Hypertension, not controlled. 3. Dysphagia. 4. Gastroesophageal reflux disease. 5. Dehydration. 6. Elevated LFTs. 7. Electrolyte imbalance with hypernatremia and hypokalemia. 8. Physical deconditioning. 9. Low-grade fever. 10. Possible aspiration bronchitis. 11. Acute respiratory failure. Possible COVID-19 infection PLAN: 1. Patient is off IV fluids and on Clinimix 2. Dysphagia. We will keep the patient n.p.o. and have speech therapy evaluation. 3. Acute cerebrovascular accident. Consult Dr. Hood. Consult PT, OT, speech therapy, and also consult Dr. Jade for rehabilitation evaluation and management. MRI has been ordered . No evidence of subdural hematoma on MRI MRI Impression: 1. No acute infarct is identified. 2. 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 3. Scattered T2 and FLAIR hyperintense signal of the supratentorial parenchyma is nonspecific, more commonly due to chronic ischemic disease in a patient this age. There are also old lacunar infarcts as stated. 4. Dehydration. Start IV fluids. No improvement noted so will increase IV fluids.Hypernatremia improving. Sodium is 145. Dr. Pierre has been consulted. Patient is now on Clinimix. Discontinue IV D5W. 5. Hypertension. Start IV hydralazine. Restart some of the home medications when the Dobbhoff tube is placed. 6. Elevated LFTs. Recheck labs in a.m. Prognosis of this patient is extremely poor. Await COVID-19 test report that was done by the facility, i.e., the care home where he lives. The staff called the care home and apparently the patient was on the COVID-19 unit but not sure about the report. Order COVID-19 PCR test here. Not done yesterday. Staff will call [facility] again. Reorder if not done.D/w staff. COVID test is positive 7. Atrial fibrillation-IV digoxin was given by the sewer bricklayer. Started on IV Lopressor on schedule. Patient remains in sinus rhythm with few PVCs 8. Acute respiratory failure-continue oxygen by nasal cannula. Pulmonary consult.Cough ? aspiration. start Zosyn. consult ID. 9. Fever possibly due to aspiration. Continue IV Zosyn. Order blood cultures x2. Urinalysis reviewed 10. Dysphagia-still needs to be n.p.o. the family has agreed to start Dobbhoff tube feeding 11. COVID 19 infection. 12. Right heel and coccyx wounds present on admission. Continue wound care. Use mittens for restraints. Decrease Clinimix to 40 cc/h this evening if patient tolerates tube feeding and keeps the Dobbhoff in. The labs are stable. Condition, treatment, options, prognosis, wounds, Dobbhoff tube feeding, possible need for PEG tube in future, malnutrition etc. extensively discussed with patient's nephew and KRISHNA Guerrier on phone. He had last seen him in April at the care home. Prognosis of this patient is very poor For details, please refer to the orders. Plan Plan For more details regarding further plans, please refer to the orders. Justicifation of Admission Dx: Justifications for Admission: Justification of Admission Dx: Yes Stroke - Ischemic: Stroke-Ischemic Nutrition Consultation Dietary Evaluation: Recommendations by RD: Dietary education by RD, PPN/TPN Comments: REC PPN until pt is able to complete PER DIEM CLERK eval REC diet per PER DIEM CLERK w/ supplements when able REC mvi and vit c per wound protocal Expected Outcomes/Goals: diet advancement vs nutrition support Interpretation of weight loss: >10% in 6 months Malnutrition Findings: Food and Nutrition Intake (Sev: <50% est energy req 5days Weight Status: Underweight JEROME SHELL MD Dec 14, 2019 09:11
[2019-12-14] MEDS: PANTOPRAZOLE IV PUSH 40 MG VIAL. IVP SCH (09:18)
--- NOTE | 2019-12-14 10:50 | PDOC ---
Infectious Disease Note Subjective Subjective s/p Dobbhoff placement this am as was pulled out Noncommunicative PPN SpO2 92% on room air ROS ROS unable to obtain Vital Sign Vital Signs Vital Signs Date Time Temp Pulse Resp B/P (MAP) Pulse Ox O2 Delivery O2 Flow Rate FiO2 12/14/19 08:15 Room Air 12/14/19 07:14 97.2 82 24 145/59 (87) 96 97.2 Physical Exam PHYSICAL EXAM GENERAL: Propped up in bed, awake, appears comfortable HEENT: Resists oral exam. Dobbhoff in place NECK: Supple. LUNGS: Decreased breath sound at the bases, nonlabored HEART: S1, S2. irregular ABDOMEN: Soft, no guarding : Kelley in place EXTREMITIES: Multiple contractures, mainly on the right side. No edema.MITTS DERMATOLOGIC: Warm, dry. No generalized rash. PSYCHIATRIC: Calm. PIV looks ok Labs Lab Laboratory Tests Test 12/14/19 04:30 Sodium Level 139 mmol/L (136-145) Potassium Level 4.2 mmol/L (3.5-5.1) Chloride Level 105 mmol/L (98-107) Carbon Dioxide Level 22 mmol/L (21-32) Anion Gap 12 (6-14) Blood Urea Nitrogen 17 mg/dL (8-26) Creatinine 0.8 mg/dL (0.7-1.3) Estimated GFR (Cockcroft-Gault) 114.0 BUN/Creatinine Ratio 21 (6-20) Glucose Level 106 mg/dL (70-99) Calcium Level 7.8 mg/dL (8.5-10.1) Total Bilirubin 0.6 mg/dL (0.2-1.0) Aspartate Amino Transf (AST/SGOT) 56 U/L (15-37) Alanine Aminotransferase (ALT/SGPT) 43 U/L (16-63) Alkaline Phosphatase 74 U/L (46-116) Total Protein 5.8 g/dL (6.4-8.2) Albumin 2.0 g/dL (3.4-5.0) Albumin/Globulin Ratio 0.5 (1.0-1.7) Micro Microbiology 12/10/19 Blood Culture - Preliminary, Resulted NO GROWTH AFTER 3 DAYS Objective Assessment COVID 19 Infection, 12/08. Fever better Possible aspiration. History of cerebrovascular accident. MRI Brain neg for acute process Hypernatremia, improved Dehydration. Abnormal liver function tests. Protein-calorie malnutrition. [facility] resident ?Ileus Plan Plan of Care Continue supportive care continue Zosyn.12/08 wean soon Maintains aspiration precaution Follow-up labs and cultures Contain isolation for COVID 19 D/w nursing ANIL HANNON MD Dec 14, 2019 10:50
[2019-12-14 11:20] VITALS: BP 147/76
[2019-12-14] MEDS: ENOXAPARIN 40 MG/0.4 ML SYRINGE. SQ SCH (11:29)
--- NOTE | 2019-12-14 11:48 | PDOC ---
PULMONARY PROGRESS NOTES DATE: 12/14/19 TIME: 11:46 Subjective appears comfortable doesnt answer my Qs on RA Vitals Vital Signs Date Time Temp Pulse Resp B/P (MAP) Pulse Ox O2 Delivery O2 Flow Rate FiO2 12/14/19 11:31 97 147/76 12/14/19 08:15 Room Air 12/14/19 07:14 97.2 24 96 97.2 Comments appears comfortable alert no distress nc at rrr no accessory muscle use no rash General: No acute distress Labs Laboratory Tests Test 12/13/19 04:00 12/14/19 04:30 White Blood Count 7.6 x10^3/uL (4.0-11.0) Red Blood Count 4.23 x10^6/uL (4.30-5.70) Hemoglobin 12.5 g/dL (13.0-17.5) Hematocrit 36.9 % (39.0-53.0) Mean Corpuscular Volume 87 fL (79-100) Mean Corpuscular Hemoglobin 30 pg (25-35) Mean Corpuscular Hemoglobin Concent 34 g/dL (31-37) Red Cell Distribution Width 12.6 % (11.5-14.5) Platelet Count 187 x10^3/uL (140-400) Neutrophils (%) (Auto) 72 % (31-73) Lymphocytes (%) (Auto) 21 % (24-48) Monocytes (%) (Auto) 6 % (0-9) Eosinophils (%) (Auto) 1 % (0-3) Basophils (%) (Auto) 1 % (0-3) Neutrophils # (Auto) 5.4 x10^3/uL (1.8-7.7) Lymphocytes # (Auto) 1.6 x10^3/uL (1.0-4.8) Monocytes # (Auto) 0.5 x10^3/uL (0.0-1.1) Eosinophils # (Auto) 0.1 x10^3/uL (0.0-0.7) Basophils # (Auto) 0.0 x10^3/uL (0.0-0.2) Sodium Level 136 mmol/L (136-145) 139 mmol/L (136-145) Potassium Level 3.6 mmol/L (3.5-5.1) 4.2 mmol/L (3.5-5.1) Chloride Level 104 mmol/L (98-107) 105 mmol/L (98-107) Carbon Dioxide Level 22 mmol/L (21-32) 22 mmol/L (21-32) Anion Gap 10 (6-14) 12 (6-14) Blood Urea Nitrogen 17 mg/dL (8-26) 17 mg/dL (8-26) Creatinine 0.9 mg/dL (0.7-1.3) 0.8 mg/dL (0.7-1.3) Estimated GFR (Cockcroft-Gault) 99.5 114.0 BUN/Creatinine Ratio 19 (6-20) 21 (6-20) Glucose Level 106 mg/dL (70-99) 106 mg/dL (70-99) Calcium Level 7.8 mg/dL (8.5-10.1) 7.8 mg/dL (8.5-10.1) Magnesium Level 2.2 mg/dL (1.8-2.4) Total Bilirubin 0.6 mg/dL (0.2-1.0) 0.6 mg/dL (0.2-1.0) Aspartate Amino Transf (AST/SGOT) 62 U/L (15-37) 56 U/L (15-37) Alanine Aminotransferase (ALT/SGPT) 44 U/L (16-63) 43 U/L (16-63) Alkaline Phosphatase 56 U/L (46-116) 74 U/L (46-116) Total Protein 6.0 g/dL (6.4-8.2) 5.8 g/dL (6.4-8.2) Albumin 1.7 g/dL (3.4-5.0) 2.0 g/dL (3.4-5.0) Albumin/Globulin Ratio 0.4 (1.0-1.7) 0.5 (1.0-1.7) Laboratory Tests Test 12/14/19 04:30 Sodium Level 139 mmol/L (136-145) Potassium Level 4.2 mmol/L (3.5-5.1) Chloride Level 105 mmol/L (98-107) Carbon Dioxide Level 22 mmol/L (21-32) Anion Gap 12 (6-14) Blood Urea Nitrogen 17 mg/dL (8-26) Creatinine 0.8 mg/dL (0.7-1.3) Estimated GFR (Cockcroft-Gault) 114.0 BUN/Creatinine Ratio 21 (6-20) Glucose Level 106 mg/dL (70-99) Calcium Level 7.8 mg/dL (8.5-10.1) Total Bilirubin 0.6 mg/dL (0.2-1.0) Aspartate Amino Transf (AST/SGOT) 56 U/L (15-37) Alanine Aminotransferase (ALT/SGPT) 43 U/L (16-63) Alkaline Phosphatase 74 U/L (46-116) Total Protein 5.8 g/dL (6.4-8.2) Albumin 2.0 g/dL (3.4-5.0) Albumin/Globulin Ratio 0.5 (1.0-1.7) Medications Active Scripts Medications Dose Route/Sig Max Daily Dose Days Date Category Vitamin D3 (Cholecalciferol (Vitamin D3)) 1,000 Unit Tablet 1 Tab PO WEEKLY 05/01/18 Reported Senokot (Sennosides) 8.6 Mg Tablet 1 Tab PO BID 05/01/18 Reported Norvasc (Amlodipine Besylate) 10 Mg Tablet 10 Mg PO DAILY 05/01/18 Reported Metoprolol Tartrate 25 Mg Tablet 0.5 Tab PO BID 05/01/18 Reported Hydrochlorothiazide Capsule (Hydrochlorothiazide) 12.5 Mg Capsule 12.5 Mg PO DAILY 05/01/18 Reported Docusate Sodium 100 Mg Capsule 1 Cap PO BID 05/01/18 Reported Aspirin 81 Mg Tab.chew 1 Tab PO DAILY 05/01/18 Reported Acetaminophen 325 Mg Tablet 650 Mg PO PRN Q4HRS PRN 05/01/18 Reported Comments CXR 1. Dobbhoff tube coiled in the mid and upper esophagus, noted to be repositioned on a subsequent radiograph. 2. Stable bilateral basilar predominant opacities. 3. Large hiatal hernia. Impression . IMPRESSION: 1. Dyspnea with cough in a patient who has suspected acute or subacute stroke. Likely has risk factors for aspiration pneumonia. ON empiric antibiotic and follow the clinical course. 2. Subacute new infarct and possible subdural hematoma versus motion artifact. 3. 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 We will follow Neurology recommendation. 3. No significant tobacco history. 4. covid19 pos, 5. Mild interstitial infiltrates due to COVID Plan . RECOMMENDATIONS: Discussed with RN. At this time, continue empiric antibiotic per id. P.r.n. bronchodilators. cxr reviewed Follow Neurology recommendations-- MRI negative for any acute process, demonstrated old lacunar infract speech therapy. COVID-19 positive. on RA, Discussed with RN. STABLE PULMONARY QUIROS WILL SEE JAMIE JULIAN MD Dec 14, 2019 11:48
--- NOTE | 2019-12-14 13:31 | RAD ---
EXAM: 1. ABDOMEN ONE VIEW, 1054. 2. ABDOMEN ONE VIEW, 1046. HISTORY: Feeding tube placement. COMPARISON: 12/13/2019. FINDINGS: On the initial examination, the feeding tube has its tip within a large hiatal hernia. On the second examination it has been advanced and appears to be within the distal stomach inferior to the hiatus. There are no distended small bowel loops. There is gas distally. IMPRESSION: 1. The feeding tube has its tip within the distal stomach inferior to the diaphragm on the final examination. 2. Large hiatal hernia. Electronically signed by: Emily Mirza MD (12/14/2019 1:28 PM) [id number]
[2019-12-14 15:27] VITALS: BP 160/72
--- NOTE | 2019-12-14 16:34 | NUR ---
SW following. Reviewed chart and discussed with RN. Pt from [facility] and not ready for discharge today. Pt COVID positive. Dobhoff tube was placed over the weekend for nutrition so pt not ready for GIP hospice referral at this time. Pt on room air. SW to follow.
[2019-12-14 19:56] VITALS: BP 158/86
[2019-12-14 23:54] VITALS: BP 151/84
[2019-12-15] MEDS: PIPERACILLIN/TAZOBACTAM 3.375 GM in IV NORMAL SALINE 50ML 50 ML IV SCH ×2 (00:12→05:55)
[2019-12-15] MEDS: METOPROLOL TARTRATE 5 MG/5 ML VIAL. IVP SCH ×4 (00:12→17:44)
[2019-12-15] MEDS: BISACODYL 10 MG SUPP.RECT. PR PRN (01:10)
[2019-12-15 03:58] VITALS: BP 136/81
[2019-12-15 04:37] LABS: ALBUMIN 1.8 g/dL (3.4-5.0); ALBUMIN/GLOBULIN RATIO 0.4 (1.0-1.7); CALCIUM 7.7 mg/dL (8.5-10.1); CREATININE 0.9 mg/dL (0.7-1.3); GFR 99.5; POTASSIUM 3.4 mmol/L (3.5-5.1); TOTAL BILIRUBIN 0.6 mg/dL (0.2-1.0); TOTAL PROTEIN 6.2 g/dL (6.4-8.2)
[2019-12-15] MEDS: PANTOPRAZOLE IV PUSH 40 MG VIAL. IVP SCH (05:58)
[2019-12-15 07:14] VITALS: BP 133/65
--- NOTE | 2019-12-15 08:59 | PDOC ---
Infectious Disease Note Subjective Subjective Noncommunicative - alert ROS ROS unable to obtain Vital Sign Vital Signs Vital Signs Date Time Temp Pulse Resp B/P (MAP) Pulse Ox O2 Delivery O2 Flow Rate FiO2 12/15/19 07:14 97.6 80 20 133/65 (87) 91 Room Air 97.6 Physical Exam PHYSICAL EXAM GENERAL: Propped up in bed, awake, appears comfortable HEENT: Resists oral exam. Dobbhoff in place NECK: Supple. LUNGS: Decreased breath sound at the bases, nonlabored HEART: S1, S2. irregular ABDOMEN: Soft, no guarding : Kelley in place EXTREMITIES: Multiple contractures, mainly on the right side. No edema.MITTS DERMATOLOGIC: Warm, dry. No generalized rash. PSYCHIATRIC: Calm. PIV looks ok Labs Lab Laboratory Tests Test 12/15/19 03:40 Sodium Level 138 mmol/L (136-145) Potassium Level 3.4 mmol/L (3.5-5.1) Chloride Level 106 mmol/L (98-107) Carbon Dioxide Level 24 mmol/L (21-32) Anion Gap 8 (6-14) Blood Urea Nitrogen 14 mg/dL (8-26) Creatinine 0.9 mg/dL (0.7-1.3) Estimated GFR (Cockcroft-Gault) 99.5 BUN/Creatinine Ratio 16 (6-20) Glucose Level 127 mg/dL (70-99) Calcium Level 7.7 mg/dL (8.5-10.1) Total Bilirubin 0.6 mg/dL (0.2-1.0) Aspartate Amino Transf (AST/SGOT) 55 U/L (15-37) Alanine Aminotransferase (ALT/SGPT) 45 U/L (16-63) Alkaline Phosphatase 83 U/L (46-116) Total Protein 6.2 g/dL (6.4-8.2) Albumin 1.8 g/dL (3.4-5.0) Albumin/Globulin Ratio 0.4 (1.0-1.7) Micro Microbiology 12/10/19 Blood Culture - Preliminary, Resulted NO GROWTH AFTER 3 DAYS Objective Assessment COVID 19 Infection, 12/08. Fever better Possible aspiration. History of cerebrovascular accident. MRI Brain neg for acute process Hypernatremia, improved Dehydration. Abnormal liver function tests. Protein-calorie malnutrition. [place] resident ?Ileus Plan Plan of Care Continue supportive care Disc continue Zosyn.12/08 today 12/12 Maintains aspiration precaution Contain isolation for COVID 19 D/w nursing ANIL HANNON MD Dec 15, 2019 08:59
[2019-12-15] MEDS: SENNOSIDES 8.6 MG TABLET PO SCH (09:00)
[2019-12-15] MEDS: ASPIRIN CHEWABLE 81 MG TABLET. PO SCH (09:00)
[2019-12-15] MEDS ORDERED: ENOXAPARIN 40 MG/0.4 ML SYRINGE. SQ SCH (09:00)
[2019-12-15] MEDS: DOCUSATE SODIUM 100 MG CAPSULE. PO SCH (09:00)
--- NOTE | 2019-12-15 09:41 | PDOC ---
IM PROGRESS NOTES- Subjective Subjective Patient is alert and more responsive but he pulled out the Dobbhoff tube last night. Awaiting KUB. Use mittens. Patient has been advised not to pull out the Dobbhoff. Objective Vitals/I&O Vital Signs Date Time Temp Pulse Resp B/P (MAP) Pulse Ox O2 Delivery O2 Flow Rate FiO2 12/15/19 07:14 97.6 80 20 133/65 (87) 91 Room Air 97.6 I & O 12/14/19 12/14/19 12/15/19 15:00 23:00 07:00 Intake Total 130 ml 470 ml 533 ml Output Total 850 ml Balance 130 ml -380 ml 533 ml Physical Exam Physical Exam GENERAL: The patient is an elderly male who is much more alert and more resp onsive today, appears to be chronically and acutely ill and in mild distress. He is unable to communicate and has been coughing while trying to talk. Throat, unable to examine as the patient is coughing LUNGS: Decreased breath sounds bilaterally. Occasional rhonchi CARDIOVASCULAR: S1, S2 regular. ABDOMEN: Soft, nontender, no guarding, no rigidity. Bowel sounds present. EXTREMITIES: No edema. The patient has right-sided weakness with contracture. He also has a facial droop on the right side, but I am not sure if it is more pronounced than before as I have not seen him for some time. CENTRAL NERVOUS SYSTEM: Patient is much more alert,, speech is not clear. He has weakness of both upper extremities. He has some weakness of the lower extremities but able to move them. Unable to assess properly as patient is unable to cooperate He does require mittens. Labs Laboratory Tests Test 12/15/19 03:40 Sodium Level 138 mmol/L (136-145) Potassium Level 3.4 mmol/L (3.5-5.1) L Chloride Level 106 mmol/L (98-107) Carbon Dioxide Level 24 mmol/L (21-32) Anion Gap 8 (6-14) Blood Urea Nitrogen 14 mg/dL (8-26) Creatinine 0.9 mg/dL (0.7-1.3) Estimated GFR (Cockcroft-Gault) 99.5 BUN/Creatinine Ratio 16 (6-20) Glucose Level 127 mg/dL (70-99) H Calcium Level 7.7 mg/dL (8.5-10.1) L Total Bilirubin 0.6 mg/dL (0.2-1.0) Aspartate Amino Transferase (AST) 55 U/L (15-37) H Alanine Aminotransferase (ALT) 45 U/L (16-63) Alkaline Phosphatase 83 U/L (46-116) Total Protein 6.2 g/dL (6.4-8.2) L Albumin 1.8 g/dL (3.4-5.0) L Albumin/Globulin Ratio 0.4 (1.0-1.7) L Laboratory Tests 12/15/19 03:40 Meds Current Medications Medications (Trade) Dose Ordered Sig/Aung Route PRN Reason Start Time Stop Time Status Last Admin Dose Admin Enoxaparin Sodium (Lovenox 40mg Syringe) 40 mg BID SQ 12/15/19 09:00 12/15/19 09:07 Assessment Assessment 1. Acute cerebrovascular accident. 2. Hypertension, not controlled. 3. Dysphagia. 4. Gastroesophageal reflux disease. 5. Dehydration. 6. Elevated LFTs. 7. Electrolyte imbalance with hypernatremia and hypokalemia. 8. Physical deconditioning. 9. Low-grade fever. 10. Possible aspiration bronchitis. 11. Acute respiratory failure. Possible COVID-19 infection PLAN: 1. Patient is off IV fluids and on Clinimix 2. Dysphagia. We will keep the patient n.p.o. and have speech therapy evaluation. 3. Acute cerebrovascular accident. Consult Dr. Hood. Consult PT, OT, speech therapy, and also consult Dr. Jade for rehabilitation evaluation and management. MRI has been ordered . No evidence of subdural hematoma on MRI MRI Impression: 1. No acute infarct is identified. 2. 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 3. Scattered T2 and FLAIR hyperintense signal of the supratentorial parenchyma is nonspecific, more commonly due to chronic ischemic disease in a patient this age. There are also old lacunar infarcts as stated. 4. Dehydration. Start IV fluids. No improvement noted so will increase IV fluids.Hypernatremia improving. Sodium is 145. Dr. Pierre has been consulted. Patient is now on Clinimix. Discontinue IV D5W. 5. Hypertension. Start IV hydralazine. Restart some of the home medications when the Dobbhoff tube is placed. 6. Elevated LFTs. Recheck labs in a.m. Prognosis of this patient is extremely poor. Await COVID-19 test report that was done by the facility[facility]. The staff called the retirement and apparently the patient was on the COVID-19 unit but not sure about the report. Order COVID-19 PCR test here. Not done yesterday. Staff will call NH again. Reorder if not done.D/w staff. COVID test is positive 7. Atrial fibrillation-IV digoxin was given by the public policy mediator. Started on IV Lopressor on schedule. Patient remains in sinus rhythm with few PVCs 8. Acute respiratory failure-continue oxygen by nasal cannula. Pulmonary consult.Cough ? aspiration. start Zosyn. consult ID. 9. Fever possibly due to aspiration. Continue IV Zosyn. Order blood cultures x2. Urinalysis reviewed 10. Dysphagia-still needs to be n.p.o. the family has agreed to start Dobbhoff tube feeding 11. COVID 19 infection. 12. Right heel and coccyx wounds present on admission. Continue wound care. 13. Hypokalemia-replace potassium Use mittens for restraints. Decrease Clinimix to 40 cc/h this evening if patient tolerates tube feeding and keeps the Dobbhoff in. The labs are stable. Condition, treatment, options, prognosis, wounds, Dobbhoff tube feeding, possible need for PEG tube in future, malnutrition etc. extensively discussed with patient's nephew and KRISHNA Guerrier on phone on 12/13/19. He had last seen him in April at the retirement. Discussed with sr. social media & mobile manager. Check if retirement can accept him with the Dobbhoff tube. Prognosis of this patient is very poor For details, please refer to the orders. Plan Plan For more details regarding further plans, please refer to the orders. Justicifation of Admission Dx: Justifications for Admission: Justification of Admission Dx: Yes Stroke - Ischemic: Stroke-Ischemic Nutrition Consultation Dietary Evaluation: Recommendations by RD: Dietary education by RD Comments: REC continue dobhoff TF for total nutrition needs at this time REC mvi and vit c per wound protocal Expected Outcomes/Goals: diet advancement vs nutrition support Interpretation of weight loss: >10% in 6 months Malnutrition Findings: Food and Nutrition Intake (Sev: <50% est energy req 5days Weight Status: Underweight JEROME SHELL MD Dec 15, 2019 09:41
[2019-12-15] MEDS ORDERED: POTASSIUM CHLORIDE 20 MEQ TABLET.ER. PO SCH (09:45)
[2019-12-15 11:00] VITALS: BP 185/132
[2019-12-15] MEDS: POTASSIUM CHLORIDE 10MEQ 100 ML IV SCH ×2 (12:50→14:34)
--- NOTE | 2019-12-15 13:24 | NUR ---
FANTA following. Reviewed chart and discussed with RN. Spoke with Topher from [facility] and pt was on hospice with [facility] at the facility back in 2017 but discharged off service. Spoke with Dr. Bee and completed referral to [facility] per approval from pt and family. Patient Choice of Vendor form completed. Spoke with Fay from [facility] and she is working on getting pt a bed either today or tomorrow, 12/16/2019. FANTA notified Dr. Bee. FANTA to continue following. Addendum: 12/15/19 at 1451 by JENNY JEWELL Fay working on obtaining REV codes from the business office at [facility] so pt will likely discharge tomorrow. Addendum: 12/15/19 at 1605 by JENNY JEWELL Fay called to say they would accept pt without REV codes. FANTA obtained discharge orders from Dr. Bee. FANTA phoned and faxed discharge orders to [facility], , (fax). RN to call report. FANTA phoned and faxed completed Medical Necessity form to [facility], , (fax). Pt to transport at 7pm via stretcher. Pt requires stretcher transport with medical supervision per Justine and COVID positive. FANTA notified Fay with [facility] and she is aware pt is COVID positive. No further SW needs at this time. Addendum: 12/15/19 at 1725 by JENNY JEWELL Fay confirmed discharge orders received. Addendum: 12/16/19 at 1118 by JENNY JEWELL Update to Angie Rocha and wellness program administrator Topher on discharge of pt to [facility].
[2019-12-15 15:00] VITALS: BP 156/72
--- NOTE | 2019-12-15 16:47 | NUR ---
Wound Care Wound care follow up. Pt remains in COVID precautions. Photo assessed. Wounds appear to be resolving. Recommend to continue skin prep and foam to heel and Calazime to coccyx. Wound care will continue to follow for possible changes.
[2019-12-15] MEDS ORDERED: ENOX40DI3 SQ (16:55)
[2019-12-15] MEDS ORDERED: PANT40TA77 PO (16:55)
[2019-12-15] MEDS ORDERED: POTA20TA4 PO (16:55)
--- NOTE | 2019-12-15 17:08 | SNU/HH DC ---
DISCHARGE ORDERS DISCHARGE INFORMATION: FINAL DIAGNOSIS Problems Medical Problems: (1) Dehydration Status: Acute (2) Facial droop Status: Acute (3) Hypernatremia Status: Acute CONDITION ON DISCHARGE: Stable LTAC: ADMIT TO LTAC: Yes POST DISCHARGE ORDERS: ACTIVITY ORDERS: Activity as tolerated DIET AFTER DISCHARGE: Jevity 1.2 at 60 cc/hr via Dobhoff. Water 100 cc q6h WOUND/INCISION CARE: Change dressing OTHER WOUND INSTRUCTIONS: consult wound care nurse OTHER ORDERS: Isolation for Covid-19 infection FOLLOW-UP: PHYSICIAN FOLLOW-UP: Dr.Pratip gibson ADDITIONAL FOLLOW-UP: consult Maliha Alford LAB ORDERS FOR FOLLOW-UP: CBC,CMP Additional Instructions: Fall precautions TREATMENT/EQUIPMENT ORDERS: ADAPTIVE EQUIPMENT NEEDED: None Physical Therapy For: Evalulation/Treatment Occupational Therapy For: Evaluation/Treatment Speech Language Pathology For: Evaluation/Treatment DISCHARGE MEDICATIONS: Home Meds Active Scripts Pantoprazole Sodium (PANTOPRAZOLE SODIUM ) 40 Mg Tablet.dr, 40 MG PO DAILYAC for GERD for 30 Days, #30 TAB Prov:JEROME GIBSON MD 12/15/19 Potassium Chloride (KLOR-CON M20) 20 Meq Tab.er.prt, 20 MEQ PO DAILYWBKFT for low k for 30 Days, #30 TAB.SR Prov:JEROME GIBSON MD 12/15/19 Enoxaparin Sodium (ENOXAPARIN SODIUM) 40 Mg/0.4 Ml Disp.syrin, 40 MG SQ BID for DVT prophylaxis for 30 Days, #60 DIS.SYR Prov:JEROME GIBSON MD 12/15/19 Reported Medications Cholecalciferol (Vitamin D3) (VITAMIN D3) 1,000 Unit Tablet, 1 TAB PO WEEKLY for supplement, #30 TAB 5 Refills 05/01/18 Sennosides (SENOKOT) 8.6 Mg Tablet, 1 TAB PO BID for constipation, #40 TAB 05/01/18 Amlodipine Besylate (NORVASC) 10 Mg Tablet, 10 MG PO DAILY for HTN, TAB 05/01/18 Metoprolol Tartrate (METOPROLOL TARTRATE) 25 Mg Tablet, 0.5 TAB PO BID for HTN, #180 TAB 1 Refill 05/01/18 Docusate Sodium (DOCUSATE SODIUM) 100 Mg Capsule, 1 CAP PO BID for constipation, #30 CAP 05/01/18 Aspirin (ASPIRIN) 81 Mg Tab.chew, 1 TAB PO DAILY for cva, #30 TAB 3 Refills 05/01/18 Acetaminophen (ACETAMINOPHEN) 325 Mg Tablet, 650 MG PO PRN Q4HRS PRN for FEVER, TAB 05/01/18 Discontinued Reported Medications Hydrochlorothiazide (HYDROCHLOROTHIAZIDE CAPSULE ) 12.5 Mg Capsule, 12.5 MG PO DAILY for DIURETIC, CAP 0 Refills 05/01/18 JEROME GIBSON MD Dec 15, 2019 17:08
--- NOTE | 2019-12-15 17:16 | PDOC3 ---
IM DISCHARGE SUMMARY Date of Admission Date of Admission Date of Admission: Dec 08, 2019 at 12:55 Date of Discharge Date of Discharge December 15, 2019 Primary Diagnosis Primary Diagnosis 1. Acute cerebrovascular accident. 2. Hypertension, not controlled. 3. Dysphagia. 4. Gastroesophageal reflux disease. 5. Dehydration. 6. Elevated LFTs. 7. Electrolyte imbalance with hypernatremia and hypokalemia. 8. Physical deconditioning. 9. Low-grade fever. 10. Possible aspiration bronchitis. 11. Acute respiratory failure due to aspiration and COVID-19 infection 12. Covid-19 infection 13. right heel and coocyx wound 14. Severe malnutrition. Consults Consults Sebastian Hood MD; Johnnie Jade MD; Oscar Chatman MD; Franck Aj MD; Terrell Bhatt MD; Homero Pierre MD Labs Labs Laboratory Tests Test 12/15/19 03:40 12/15/19 11:02 Sodium Level 138 mmol/L (136-145) Potassium Level 3.4 mmol/L (3.5-5.1) L Chloride Level 106 mmol/L (98-107) Carbon Dioxide Level 24 mmol/L (21-32) Anion Gap 8 (6-14) Blood Urea Nitrogen 14 mg/dL (8-26) Creatinine 0.9 mg/dL (0.7-1.3) Estimated GFR (Cockcroft-Gault) 99.5 BUN/Creatinine Ratio 16 (6-20) Glucose Level 127 mg/dL (70-99) H Calcium Level 7.7 mg/dL (8.5-10.1) L Total Bilirubin 0.6 mg/dL (0.2-1.0) Aspartate Amino Transferase (AST) 55 U/L (15-37) H Alanine Aminotransferase (ALT) 45 U/L (16-63) Alkaline Phosphatase 83 U/L (46-116) Total Protein 6.2 g/dL (6.4-8.2) L Albumin 1.8 g/dL (3.4-5.0) L Albumin/Globulin Ratio 0.4 (1.0-1.7) L Glucose (Fingerstick) 141 mg/dL (70-99) H Laboratory Tests 12/15/19 03:40 Brief hospital course Brief hospital course This 74 years old [facility] resident was noted by the staff today to have an increasing facial droop. The patient previously has had a cerebrovascular accident with right-sided weakness. The patient also vomited today and has been coughing. He had a COVID-19 test done this morning. Because of his worsening facial droop, the patient was sent to the Emergency Room. A chest x-ray was negative. The patient has been coughing. A CT scan of head showed old lacunar infarcts and possible subacute infarct in the right side radha. Because of the dysphagia, worsening facial droop, coughing, and with the possibility of acute cerebrovascular accident, the patient is admitted for further evaluation and management. For more details regarding the past history, family history, social history, surgical history and other details, please refer to History and Physical. 1. Patient is off IV fluids and on Clinimix 2. Dysphagia. We will keep the patient n.p.o. and have speech therapy evaluation. 3. Acute cerebrovascular accident. Consult Dr. Hood. Consult PT, OT, speech therapy, and also consult Dr. Jade for rehabilitation evaluation and management. MRI has been ordered . No evidence of subdural hematoma on MRI MRI Impression: 1. No acute infarct is identified. 2. 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 3. Scattered T2 and FLAIR hyperintense signal of the supratentorial parenchyma is nonspecific, more commonly due to chronic ischemic disease in a patient this age. There are also old lacunar infarcts as stated. 4. Dehydration. Start IV fluids. No improvement noted so will increase IV fluids.Hypernatremia improving. Sodium is 145. Dr. Pierre has been consulted. Patient is now on Clinimix. Discontinue IV D5W. 5. Hypertension. Start IV hydralazine. Restart some of the home medications when the Dobbhoff tube is placed. 6. Elevated LFTs. Recheck labs in a.m. Prognosis of this patient is extremely poor. Await COVID-19 test report that was done by the facility, i.e., the [facility] where he lives. The staff called the [facility] and apparently the patient was on the COVID-19 unit but not sure about the report. Order COVID-19 PCR test here. Not done yesterday. Staff will call [facility] again. Reorder if not done.D/w staff. COVID test is positive 7. Atrial fibrillation-IV digoxin was given by the clinical medical transcriptionist. Started on IV Lopressor on schedule. Patient remains in sinus rhythm with few PVCs 8. Acute respiratory failure-continue oxygen by nasal cannula. Pulmonary consult.Cough ? aspiration. start Zosyn. consult ID. 9. Fever possibly due to aspiration. Continue IV Zosyn. Order blood cultures x2. Urinalysis reviewed 10. Dysphagia-still needs to be n.p.o. the family has agreed to start Dobbhoff tube feeding 11. COVID 19 infection. 12. Right heel and coccyx wounds present on admission. Continue wound care. 13. Hypokalemia-replace potassium Use mittens for restraints. Decrease Clinimix to 40 cc/h this evening if patient tolerates tube feeding and keeps the Dobbhoff in. The labs are stable. Condition, treatment, options, prognosis, wounds, Dobbhoff tube feeding, possible need for PEG tube in future, malnutrition etc. extensively discussed with patient's nephew and KRISHNA Guerrier on phone on 12/13/19. He had last seen him in April at the [facility]. Discussed with social media campaign manager. [facility] Prognosis of this patient is very poor Medications Current Medications Medications (Trade) Dose Ordered Sig/Aung Route PRN Reason Start Time Stop Time Status Last Admin Dose Admin Enoxaparin Sodium (Lovenox 40mg Syringe) 40 mg BID SQ 12/15/19 09:00 12/15/19 09:07 Potassium Chloride/Water 100 ml @ 100 mls/hr Q1H IV 12/15/19 11:30 12/15/19 13:29 DC 12/15/19 14:34 Medications reviewed and reconciled for discharge. Allergy Allergies Coded Allergies Type Severity Reaction Last Updated Verified No Known Drug Allergies 01/06/14 No Follow up in 5 days. [facility] Discharge Management - 35 minutes. For other details please refer to discharge instructions Justicifation of Admission Dx: Justifications for Admission: Justification of Admission Dx: Yes Stroke - Ischemic: Stroke-Ischemic JEROME SHELL MD Dec 15, 2019 17:16
[2019-12-15 17:44] VITALS: BP 156/72
--- NOTE | 2019-12-15 19:00 | NUR ---
Discharge Note: [facility] Discharge instructions nurse Alfonso at [facility] specialty and discharge package given to [facility] fire department. All questions have been answered and understanding verbalized. Iv in left place. DPOA notified.
== END 2019-12-15 20:21 | DRG 177 ==
LOC: ER 13:25 → 6 SOUTH 16:21 → OBSVTOIN 12-08 12:55
PROVIDERS: ADMIT Internal Medicine; ATTEND Internal Medicine
DX: U07.1 COVID-19 (principal); J96.00 Acute respiratory failure, unspecified whether with hypoxia or hypercapnia; J69.0 Pneumonitis due to inhalation of food and vomit; E43 Unspecified severe protein-calorie malnutrition; N17.9 Acute kidney failure, unspecified; E87.1 Hypo-osmolality and hyponatremia; E87.0 Hyperosmolality and hypernatremia; I69.351 Hemiplegia and hemiparesis following cerebral infarction affecting right dominant side; K56.7 Ileus, unspecified; E86.0 Dehydration; E87.6 Hypokalemia; G93.89 Other specified disorders of brain; I10 Essential (primary) hypertension; I48.91 Unspecified atrial fibrillation; I49.3 Ventricular premature depolarization; I69.320 Aphasia following cerebral infarction; I73.9 Peripheral vascular disease, unspecified; K21.9 Gastro-esophageal reflux disease without esophagitis; R13.10 Dysphagia, unspecified; R29.810 Facial weakness; Z68.20 Body mass index [BMI] 20.0-20.9, adult
CPT/HCPCS: 36415; 70450; 70551; 71045; 74018; 80053; 80061; 81001; 82962; 83735; 84100; 84484; 85025; 85610; 87040; 93005; 99285; C9113; G0378; G0379; J0360; J1160; J1650; J2543; J3480; J3490; 92526-GN; 92610-GN; 97530-GP; U0003-CS